=== PATIENT | female | born 1970 | race Hispanic/Latino ===

== ENCOUNTER 2017-09-03 10:56 | Emergency (ER) | payer OTHER ==
[2017-09-03 10:56] VITALS: BMI 29.3
--- NOTE | 2017-09-03 11:37 | ED PDOC ---
Arrival/HPI - General Chief Complaint: Shortness Of Breath Time Seen by Provider: 09/03/17 11:23 Historian: Patient - History of Present Illness Narrative History of Present Illness (Text): 09/03/17 11:29 A 47 year old female, whose past medical history includes seasonal allergies and anemia, presents to the emergency department complaining of shortness of breath and chest pain. Patient reports experiencing symptoms on and off since diagnosed with blood clots about 1 year ago. Recently, when patient is walking, she begins experiencing symptoms and is "huffing and puffing". Patient notes also that [place] and when it is windy she begins experiencing shortness of breath. Denies any fever, chills, or any other complaints. Also, patient mentions having blood work done every month. No PMD Past Medical History - Provider Review Nursing Documentation Reviewed: Yes - Infectious Disease Hx of Infectious Diseases: None - Reproductive Menopause: No - Cardiac Hx Cardiac Disorders: No - Pulmonary Hx Respiratory Disorders: No Hx Pulmonary Embolism: Yes Other/Comment: DVT - Neurological Hx Neurological Disorder: No - HEENT Hx HEENT Disorder: No - Renal Hx Renal Disorder: No - Endocrine/Metabolic Hx Endocrine Disorders: No - Hematological/Oncological Hx Blood Disorders: Yes Hx Anemia: Yes - Integumentary Hx Dermatological Disorder: No - Musculoskeletal/Rheumatological Hx Musculoskeletal Disorders: No Hx Falls: No - Gastrointestinal Hx Gastrointestinal Disorders: No - Genitourinary/Gynecological Hx Genitourinary Disorders: No - Psychiatric Hx Psychophysiologic Disorder: No Hx Substance Use: No - Surgical History Hx Cholecystectomy: Yes (2006) Family/Social History - Physician Review Nursing Documentation Reviewed: Yes Family/Social History: No Known Family HX Smoking Status: Never Smoked Hx Alcohol Use: No Hx Substance Use: No Allergies/Home Meds Allergies/Adverse Reactions: Allergies No Known Allergies Allergy (Verified 09/22/16 08:21) Home Medications: Home Meds Medication Instructions Recorded Confirmed Warfarin [Coumadin] 2.5 mg PO 09/03/17 Warfarin [Coumadin] 5 mg PO 09/03/17 amLODIPine [Norvasc] 5 mg PO DAILY 09/03/17 09/03/17 Review of Systems - Physician Review All systems were reviewed & negative as marked: Yes - Review of Systems Constitutional: absent: Fevers, Night Sweats Respiratory: SOB Cardiovascular: Chest Pain Physical Exam Vital Signs Reviewed: Yes Vital Signs Temp Pulse Resp BP Pulse Ox 09/03/17 11:58 91 H 09/03/17 11:22 97.5 F L 94 H 17 126/77 99 09/03/17 11:04 99.1 F 88 20 155/84 H 95 Temperature: Afebrile Blood Pressure: Hypertensive Pulse: Regular Respiratory Rate: Normal Appearance: Positive for: Well-Appearing, Other (patient appears to be anxious) Pain Distress: None Mental Status: Positive for: Alert and Oriented X 3 - Systems Exam Head: Present: Atraumatic, Normocephalic Pupils: Present: PERRL Extroacular Muscles: Present: EOMI Conjunctiva: Present: Normal Mouth: Present: Moist Mucous Membranes Neck: Present: Normal Range of Motion Respiratory/Chest: Present: Clear to Auscultation, Good Air Exchange. No: Respiratory Distress, Accessory Muscle Use Cardiovascular: Present: Regular Rate and Rhythm, Normal S1, S2. No: Murmurs Abdomen: Present: Normal Bowel Sounds. No: Tenderness, Distention, Peritoneal Signs Back: Present: Normal Inspection Upper Extremity: Present: Normal Inspection. No: Cyanosis, Edema Lower Extremity: Present: Normal Inspection. No: Edema Neurological: Present: GCS=15, CN II-XII Intact, Speech Normal Skin: Present: Warm, Dry, Normal Color. No: Rashes Psychiatric: Present: Alert, Oriented x 3, Normal Insight, Normal Concentration , Anxious Medical Decision Making ED Course and Treatment: 09/03/17 11:32 Impression: 47 year old female with shortness of breath and chest pain. Physical exam is normal. Plan: -- EKG -- Chest X-ray -- Angio Chest CT -- Labs -- Urinalysis -- Reassess and disposition Prior Visits: Notes and results from previous visits were reviewed. Patient was last seen in the emergency department on 09/22/2016 for "iron being low". Patient was admitted. Progress Notes: EKG: Ordered, reviewed, and independently interpreted the EKG. Rate : 104 BPM Rhythm : Sinus tachycardia with premature atrial complexes. Interpretation : No ST-segment elevations or depressions, no T-wave inversions, normal intervals. Comparison : No previous EKG for comparison. 09/03/2017 13:12 Chest X-ray IMPRESSION: No active disease. Dictator: Yefri Cramer MD 09/03/2017 13:[address] IMPRESSION: No active disease. Dictator: Yefri Cramer MD - Lab Interpretations Lab Results: 09/03/17 11:50 09/03/17 11:50 Lab Results 09/03/17 12:50: Urine Color Yellow, Urine Appearance Clear, Urine pH 6.0, Ur Specific [place] 1.020, Urine Protein Trace H, Urine Glucose (UA) Negative, Urine Ketones Negative, Urine Blood Negative, Urine Nitrate Negative, Urine Bilirubin Negative, Urine Urobilinogen 0.2, Ur Leukocyte Esterase Negative, Urine RBC 0 - 2, Urine WBC Negative, Ur Epithelial Cells 1 - 3, Urine Bacteria Neg, Urine HCG, Qual Negative 09/03/17 11:50: Sodium 140, Potassium 4.2, Chloride 107, Carbon Dioxide 21, Anion Gap 15, BUN 7, Creatinine 0.6 L, Est GFR ( Amer) > 60, Est GFR (Non -Af Amer) > 60, Random Glucose 124 H, Calcium 9.7, Total Bilirubin 0.4, AST 19, ALT 35, Alkaline Phosphatase 70, Lactate Dehydrogenase 506, Total Creatine Kinase 100, Troponin I < 0.01 D, Total Protein 6.9, Albumin 3.8, Globulin 3.1, Albumin/Globulin Ratio 1.2 09/03/17 11:50: PT 23.6 H, INR 2.02 H, D-Dimer, Quantitative 347 H 09/03/17 11:50: WBC 6.1, RBC 3.78, Hgb 10.8 L, Hct 33.2 L, MCV 87.8, MCH 28.6, MCHC 32.5, RDW 15.2 H, Plt Count 369, MPV 8.8, Gran % 71.9 H, Lymph % (Auto) 20.0 L, Loving % (Auto) 6.6 H, Eos % (Auto) 1.3 L, Baso % (Auto) 0.2, Gran # 4.39 , Lymph # (Auto) 1.2, Loving # (Auto) 0.4, Eos # (Auto) 0.1, Baso # (Auto) 0.01 I have reviewed the lab results: Yes - RAD Interpretation Radiology Orders: 09/03/17 11:28 CHEST PORTABLE [RAD] Stat 09/03/17 13:53 ANGIO CHEST PE PROTOCOL [CT] Stat - PA / WELLNESS ASSISTANT / Resident Statement MD/DO has reviewed & agrees with the documentation as recorded. - Scribe Statement The provider has reviewed the documentation as recorded by the Babita Fernandez Provider Babita Attestation: All medical record entries made by the Babita were at my direction and personally dictated by me. I have reviewed the chart and agree that the record accurately reflects my personal performance of the history, physical exam, medical decision making, and the department course for this patient. I have also personally directed, reviewed, and agree with the discharge instructions and disposition. Disposition/Present on Arrival - Present on Arrival Any Indicators Present on Arrival: No History of DVT/PE: Yes History of Uncontrolled Diabetes: No Urinary Catheter: No History of Decub. Ulcer: No History Surgical Site Infection Following: None - Disposition Have Diagnosis and Disposition been Completed?: Yes Diagnosis: Dyspnea Disposition: HOME/ ROUTINE Disposition Time: 15:43 Patient Plan: Discharge Patient Problems: Current Active Problems Problem Status Onset Dyspnea Acute Condition: GOOD Discharge Instructions (ExitCare): Dyspnea (ED) Additional Instructions: Milady- all your test results are good. it is not clear to me why you feel short of breath. see your doctor tomorrow. return to us if problems. Murray- Dr. Bruce Meadows Forms: Errund (Ivorian)
[2017-09-03 12:26] LABS: ALB/GLOB RATIO 1.2 (1.1-1.8); ALBUMIN 3.8 g/dL (3.0-4.8); ALT/SGPT 35 U/L (7-56); AST/SGOT 19 U/L (14-36); BLOOD UREA NITROGEN 7 mg/dL (7-21); CALCIUM 9.7 mg/dL (8.4-10.5); GFR AFRICAN-AMERICAN > 60; GFR NON-AFRICAN AMERICAN > 60
[2017-09-03 12:38] LABS: TROPONIN I < 0.01 ng/mL
[2017-09-03 12:50] LABS: INR 2.02 (0.93-1.08); PROTHROMBIN TIME 23.6 SECONDS (9.4-12.5)
[2017-09-03 12:52] LABS: BASO # 0.01 K/mm3 (0.0-2.0); BASO % 0.2 % (0.0-3.0); EOS # 0.1 (0.0-0.7); EOS % 1.3 % (1.5-5.0); GRAN # 4.39 (1.4-6.5); GRAN % 71.9 % (50.0-68.0); HEMOGLOBIN 10.8 g/dL (12.0-16.0); LYMPH # 1.2 (1.2-3.4); MEAN CELL VOLUME 87.8 fl (80.0-105.0); MEAN CORPUSCULAR HEMOGLOBIN 28.6 pg (25.0-35.0); MEAN CORPUSCULAR HGB CONC 32.5 g/dl (31.0-37.0); MEAN PLATELET VOLUME 8.8 fl (7.0-11.0); MONO # 0.4 (0.1-0.6); MONO % 6.6 % (1.0-6.0); RBC 3.78 10^6/uL (3.5-6.1); RED CELL DISTRIBUTION WIDTH 15.2 % (11.5-14.5); WHITE BLOOD COUNT 6.1 10^3/ul (4.5-11.0)
--- NOTE | 2017-09-03 13:13 | RAD ---
HISTORY: Chest Tightness COMPARISON: 09/22/2016 FINDINGS: LUNGS: No active pulmonary disease. PLEURA: No significant pleural effusion identified, no pneumothorax apparent. CARDIOVASCULAR: Normal. OSSEOUS STRUCTURES: No significant abnormalities. VISUALIZED UPPER ABDOMEN: Normal. OTHER FINDINGS: None. IMPRESSION: No active disease.
[2017-09-03 13:16] LABS: URINE BILIRUBIN NEGATIVE (NEGATIVE); URINE BLOOD NEGATIVE (NEGATIVE); URINE GLUCOSE (UA) NEGATIVE (NEGATIVE); URINE LEUKOCYTE ESTERASE NEGATIVE Leu/uL (NEGATIVE); URINE NITRATE NEGATIVE (NEGATIVE); URINE PROTEIN TRACE mg/dL (<30 mg/dL); URINE UROBILINOGEN 0.2 E.U./dL (<1 E.U./dL)
[2017-09-03 13:17] LABS: URINE APPEARANCE CLEAR (CLEAR); URINE COLOR YELLOW (YELLOW)
[2017-09-03 13:19] LABS: HCG,QUALITATIVE URINE NEGATIVE (NEGATIVE)
[2017-09-03 13:21] LABS: URINE RBC 0 - 2 /hpf (0-2); URINE WBC NEGATIVE /hpf (0-6)
[2017-09-03 13:22] LABS: URINE BACTERIA NEG (NEG)
[2017-09-03] MEDS ORDERED: Iodixanol 320 MG/ML 100 ML BOTTLE IV ONE (14:27)
--- NOTE | 2017-09-03 15:21 | CT ---
PROCEDURE: CT Chest with contrast (Pulmonary Angiogram) HISTORY: dyspnea, tachycardia, positive dimer, PE 1 yr ago COMPARISON: CT 09/22/2016 TECHNIQUE: Axial computed tomography images were obtained of the chest in the pulmonary arterial phase of enhancement. Coronal and sagittal reformatted images were created and reviewed. This CT exam was performed using one or more of the following dose reduction techniques: Automated exposure control, adjustment of the mA and/or kV according to patient size, and/or use of iterative reconstruction technique. Intravenous contrast dose: 100 cc of Visipaque Radiation dose: Total exam DLP = 265 mGy-cm. FINDINGS: PULMONARY ARTERIES: Unremarkable. No pulmonary embolism. There is a small linear filling defect in the right lower lobe pulmonary artery that is most likely the sequela of previous pulmonary emboli which were documented 1 year ago. There are no emboli on the current study AORTA: No acute findings. No thoracic aortic aneurysm. LUNGS: Unremarkable. No nodule, mass or pulmonary consolidation. PLEURAL SPACES: Unremarkable. No effusion or pneuomothorax. HEART: Unremarkable. No cardiomegaly. No significant pericardial effusion. LYMPH NODES: No lymphadenopathy. BONES, CHEST WALL: Unremarkable. No fracture or destructive lesion OTHER FINDINGS: Unremarkable. IMPRESSION: Unremarkable CT pulmonary angiogram. No pulmonary embolus.
[2017-09-03 16:47] VITALS: BP 121/64; PULSE 79; RESP 20; TEMP 98; O2SAT 97
--- NOTE | 2017-09-04 14:44 | CARD ---
APPROVED REPORT EKG Measurement Heart [id number] <Conclusion> Sinus tachycardia with premature atrial complexes Nonspecific ST abnormality Abnormal ECG
== END 2017-09-03 16:51 | disposition home or self-care (01) ==
LOC: ED 10:56
DX: R06.00 Dyspnea, unspecified (principal)
CPT/HCPCS: 71045; 71275; 80053; 81001; 82550; 83615; 84484; 84703; 85025; 85378; 85610; 93005; 99285; Q9967

== ENCOUNTER 2018-07-29 16:37 | Inpatient (IN) | payer OTHER, SELFPAY ==
--- NOTE | 2018-07-29 17:03 | ED PDOC ---
Arrival/HPI - General Chief Complaint: Shortness Of Breath Time Seen by Provider: 07/29/18 16:52 - History of Present Illness Narrative History of Present Illness (Text): 07/29/18 16:59 47 yo female, hx of dvt/pe not on anticoag, present wtih cp and sob similar to previous pe episode. of note , previous pos stress. no fevers, or othter comapltins. Past Medical History - Infectious Disease Hx of Infectious Diseases: None - Cardiac Hx Hypertension: Yes - Pulmonary Hx Pulmonary Embolism: Yes Other/Comment: DVT - Neurological Hx Neurological Disorder: No - HEENT Hx HEENT Disorder: No - Renal Hx Renal Disorder: No - Endocrine/Metabolic Hx Endocrine Disorders: No - Hematological/Oncological Hx Blood Disorders: Yes Hx Anemia: Yes - Integumentary Hx Dermatological Disorder: No - Musculoskeletal/Rheumatological Hx Musculoskeletal Disorders: No Hx Falls: No - Gastrointestinal Hx Gastrointestinal Disorders: No - Genitourinary/Gynecological Hx Genitourinary Disorders: No - Psychiatric Hx Psychophysiologic Disorder: No Hx Substance Use: No - Surgical History Hx Cholecystectomy: Yes (2006) Family/Social History Family/Social History: Unknown Family HX Smoking Status: Never Smoked Hx Alcohol Use: No Hx Substance Use: No Allergies/Home Meds Allergies/Adverse Reactions: Allergies No Known Allergies Allergy (Verified 09/22/16 08:21) Home Medications: Home Meds Medication Instructions Recorded Confirmed amLODIPine [Norvasc] 10 mg PO DAILY 09/03/17 08/01/18 Review of Systems - Review of Systems Constitutional: Normal Eyes: Normal ENT: Normal Respiratory: SOB Cardiovascular: Chest Pain Gastrointestinal: Normal Genitourinary Female: Normal Musculoskeletal: Normal Skin: Normal Neurological: Normal Endocrine: Normal Hemo/Lymphatic: Normal Psychiatric: Normal Physical Exam Vital Signs Temp Pulse Resp BP Pulse Ox 07/29/18 16:48 97.9 F 126 H 18 122/50 L 85 L Temperature: Afebrile Blood Pressure: Normal Pulse: Tachycardic Respiratory Rate: Tachypneic Appearance: Positive for: Well-Appearing, Non-Toxic, Comfortable Pain Distress: None Mental Status: Positive for: Alert and Oriented X 3 - Systems Exam Head: Present: Atraumatic, Normocephalic Pupils: Present: PERRL Extroacular Muscles: Present: EOMI Conjunctiva: Present: Normal Mouth: Present: Moist Mucous Membranes Neck: Present: Normal Range of Motion Respiratory/Chest: Present: Clear to Auscultation, Good Air Exchange. No: Respiratory Distress, Accessory Muscle Use Cardiovascular: Present: Regular Rate and Rhythm, Normal S1, S2. No: Murmurs Abdomen: No: Tenderness, Distention, Peritoneal Signs Back: Present: Normal Inspection Upper Extremity: Present: Normal Inspection. No: Cyanosis, Edema Lower Extremity: Present: Normal Inspection. No: Edema Neurological: Present: GCS=15, CN II-XII Intact, Speech Normal Skin: Present: Warm, Dry, Normal Color. No: Rashes Psychiatric: Present: Alert, Oriented x 3, Normal Insight, Normal Concentration Medical Decision Making ED Course and Treatment: 07/29/18 17:05 ekg sinus tach 111. non specific st t wave changes 08/04/18 07:36 suspect pe heparin dosed. echo with dilated rv bedside accepted dr king to icu - RAD Interpretation Radiology Orders: 07/29/18 16:58 CHEST PORTABLE [RAD] Stat Disposition/Present on Arrival - Present on Arrival Any Indicators Present on Arrival: No History of DVT/PE: Yes History of Uncontrolled Diabetes: No Urinary Catheter: No History of Decub. Ulcer: No History Surgical Site Infection Following: None - Disposition Have Diagnosis and Disposition been Completed?: Yes Diagnosis: Pulmonary embolism Disposition: HOSPITALIZED Disposition Time: 07:00 Condition: CRITICAL
[2018-07-29 17:33] LABS: BASO # 0.03 K/mm3 (0.0-2.0); BASO % 0.2 % (0.0-3.0); EOS # 0.1 (0.0-0.7); EOS % 0.8 % (1.5-5.0); GRAN # 13.08 (1.4-6.5); GRAN % 85.1 % (50.0-68.0); HEMOGLOBIN 12.7 g/dL (12.0-16.0); LYMPH # 1.3 (1.2-3.4); LYMPH % 8.6 % (22.0-35.0); MEAN CELL VOLUME 90.5 fl (80.0-105.0); MEAN CORPUSCULAR HEMOGLOBIN 30.1 pg (25.0-35.0); MEAN CORPUSCULAR HGB CONC 33.2 g/dl (31.0-37.0); MEAN PLATELET VOLUME 9.2 fl (7.0-11.0); MONO # 0.8 (0.1-0.6); MONO % 5.3 % (1.0-6.0); RBC 4.22 10^6/uL (3.5-6.1); RED CELL DISTRIBUTION WIDTH 16.2 % (11.5-14.5); WHITE BLOOD COUNT 15.4 10^3/uL (4.5-11.0)
[2018-07-29 17:44] LABS: B-TYPE NATRIURETIC PEPTIDE 427 pg/mL (0-450); TROPONIN I < 0.01 ng/mL
[2018-07-29 17:45] LABS: INR 1.27; PROTHROMBIN TIME 14.6 SECONDS (9.4-12.5)
[2018-07-29 17:49] LABS: D DIMER > 5250 ng/mlDDU (0-243)
[2018-07-29] MEDS ORDERED: Heparin25000 units/250ml 1/2NS 25,000 UNITS/250 ML BAG IV PRN (17:51)
[2018-07-29] MEDS ORDERED: Iodixanol 320 MG/ML 100 ML BOTTLE IV ONE (17:59)
[2018-07-29 18:01] VITALS: BMI 23.9
[2018-07-29] MEDS ORDERED: Heparin25000 units/250ml 1/2NS 25,000 UNITS/250 ML BAG IV SCH (18:15)
[2018-07-29 18:26] LABS: ALB/GLOB RATIO 1.2 (1.1-1.8); ALBUMIN 4.3 g/dL (3.0-4.8); ALT/SGPT 22 U/L (7-56); AST/SGOT 34 U/L (14-36); BLOOD UREA NITROGEN 15 mg/dL (7-21); CALCIUM 9.8 mg/dL (8.4-10.5); GFR NON-AFRICAN AMERICAN > 60
[2018-07-29 18:55] LABS: URINE BILIRUBIN NEGATIVE (NEGATIVE); URINE BLOOD MODERATE (NEGATIVE); URINE GLUCOSE (UA) NEGATIVE (NEGATIVE); URINE LEUKOCYTE ESTERASE NEGATIVE Leu/uL (NEGATIVE); URINE PROTEIN TRACE mg/dL (<30 mg/dL)
[2018-07-29 19:02] LABS: URINE APPEARANCE SL CLOUDY (CLEAR); URINE COLOR YELLOW (YELLOW)
[2018-07-29 19:07] LABS: URINE BACTERIA MOD /hpf; URINE EPITHELIAL CELLS MANY /hpf (0-5); URINE WBC 0 - 2 /hpf (0-6)
--- NOTE | 2018-07-29 21:05 | CP.PCM.HP ---
<Gary Jackson - Last Filed: 07/29/18 21:06> History of Present Illness - History of Present Illness History of Present Illness: Gary Jackson, PGY-1, Internal Medicine History and Physical for Dr. Luna 47 year old female with past medical history of anemia, pulmonary embolism and bilateral DVT in 2017, vitamin D deficiency, and hypertension presents with shortness of breath and nonproductive cough for 2 weeks. Patient initially reported shortness of breath with moderate exertion such as ambulation on stairs but over this past week, shortness of breath has been worsening and is now present with minimal ambulation. Today, patient was walking to local grocery store, when patient had severe shortness of breath and she came to the emergency department. Patient also reports history of unspecified weight loss over unspecified number of time. Patient approximates 15-20 lb weight loss but does not have a weight scale at home to confirm. Patient has a history of pulmonary embolism and bilateral DVT in 2016. At that time, PE was found to be unprovoked. Patient was started on eliquis for 1 month and later switched to warfarin. Patient was on Warfarin until 08/2017. Patient has been on low dose aspirin since August. At bedside, patient was not in respiratory distress and was sitting up comfortably in bed. Patient denies chest pain, left arm pain, left jaw pain, diaphoresis, nausea, vomiting, lower extremity swelling, lower extremity pain, fever, wheezing, productive cough. 12-point ROS was unremarkable except for what was mentioned above. PMH: as mentioned above PSH: laparoscopic cholecystectomy FMHx: asthma, leukemia SHx: social alcohol use. Denies tobacco and recreational drug use Allergies: NKDA PCP: Dr. Stevenson Present on Admission - Present on Admission Any Indicators Present on Admission: Yes History of DVT/PE: Yes Review of Systems - Constitutional Constitutional: Weight Loss. absent: Chills, Excessive Sweating, Fever, Headache - EENT Eyes: absent: Blurred Vision Ears: absent: Decreased Hearing - Cardiovascular Cardiovascular: Dyspnea, Palpitations. absent: Chest Pain, Chest Pain at Rest, Diaphoresis, Edema, Leg Edema, Orthopnea - Respiratory Respiratory: Cough (nonproductive). absent: Hemoptysis, Wheezing, Snoring - Gastrointestinal Gastrointestinal: absent: Abdominal Pain, Constipation, Diarrhea, Nausea, Vomiting - Genitourinary Genitourinary: absent: Dysuria, Hematuria - Musculoskeletal Musculoskeletal: absent: Abnormal Gait, Arthralgias, Back Pain - Neurological Neurological: absent: Dizziness, Numbness, Vertigo Past Patient History - Infectious Disease Hx of Infectious Diseases: None - Past Social History Smoking Status: Never Smoked Alcohol: Social Drugs: Denies - CARDIAC Hx Hypertension: Yes - PULMONARY Hx Pulmonary Embolism: Yes Other/Comment: DVT - NEUROLOGICAL Hx Neurological Disorder: No - HEENT Hx HEENT Problems: No - RENAL Hx Chronic Kidney Disease: No - ENDOCRINE/METABOLIC Hx Endocrine Disorders: No - HEMATOLOGICAL/ONCOLOGICAL Hx Blood Disorders: Yes Hx Anemia: Yes - INTEGUMENTARY Hx Dermatological Problems: No - MUSCULOSKELETAL/RHEUMATOLOGICAL Hx Musculoskeletal Disorders: No Hx Falls: No - GASTROINTESTINAL Hx Gastrointestinal Disorders: No - GENITOURINARY/GYNECOLOGICAL Hx Genitourinary Disorders: No - PSYCHIATRIC Hx Psychophysiologic Disorder: No Hx Substance Use: No - SURGICAL HISTORY Hx Cholecystectomy: Yes (2006) Meds Allergies/Adverse Reactions: Allergies Allergy/AdvReac Type Severity Reaction Status Date / Time No Known Allergies Allergy Verified 09/22/16 08:21 Physical Exam - Constitutional Appears: Well, Non-toxic, No Acute Distress - Head Exam Head Exam: ATRAUMATIC, NORMAL INSPECTION, NORMOCEPHALIC - Eye Exam Eye Exam: EOMI Pupil Exam: NORMAL ACCOMODATION - Neck Exam Neck exam: Positive for: Normal Inspection Additional comments: No JVD - Respiratory Exam Respiratory Exam: Clear to Auscultation Bilateral, NORMAL BREATHING PATTERN. absent: Rhonchi, Wheezes, Respiratory Distress, Stridor - Cardiovascular Exam Cardiovascular Exam: Tachycardia, REGULAR RHYTHM. absent: JVD - GI/Abdominal Exam GI & Abdominal Exam: Normal Bowel Sounds, Soft - Extremities Exam Extremities exam: Positive for: full ROM, normal inspection. Negative for: pedal edema, tenderness Additional comments: negative Asa's sign - Neurological Exam Neurological exam: Alert, CN II-XII Intact, Oriented x3 - Psychiatric Exam Psychiatric exam: Normal Affect, Normal Mood Results - Vital Signs Recent Vital Signs: Last Vital Signs Temp 98.1 F 07/29/18 20:17 Pulse 110 H 07/29/18 20:17 Resp 20 07/29/18 20:17 BP 118/60 07/29/18 20:17 Pulse Ox 97 07/29/18 20:17 - Labs Result Diagrams: 07/29/18 17:00 07/29/18 17:00 Labs: Laboratory Results - last 24 hr 07/29/18 07/29/18 07/29/18 17:00 17:00 17:00 WBC 15.4 H D RBC 4.22 Hgb 12.7 Hct 38.2 MCV 90.5 MCH 30.1 MCHC 33.2 RDW 16.2 H Plt Count 389 MPV 9.2 Gran % 85.1 H Lymph % (Auto) 8.6 L Elbert % (Auto) 5.3 Eos % (Auto) 0.8 L Baso % (Auto) 0.2 Gran # 13.08 H Lymph # (Auto) 1.3 Elbert # (Auto) 0.8 H Eos # (Auto) 0.1 Baso # (Auto) 0.03 PT 14.6 H INR 1.27 APTT 29.0 D-Dimer, Quantitative > 5250 H Sodium 140 Potassium 3.9 Chloride 106 Carbon Dioxide 23 Anion Gap 14 BUN 15 Creatinine 0.7 Est GFR ( Amer) > 60 Est GFR (Non-Af Amer) > 60 Random Glucose 147 H Calcium 9.8 Magnesium 2.1 Total Bilirubin 0.5 AST 34 ALT 22 Alkaline Phosphatase 105 Lactate Dehydrogenase 560 Total Creatine Kinase 29 L Troponin I < 0.01 NT-Pro-B Natriuret Pep 427 Total Protein 7.8 Albumin 4.3 Globulin 3.5 Albumin/Globulin Ratio 1.2 Urine Color Urine Appearance Urine pH Ur Specific Rosser Urine Protein Urine Glucose (UA) Urine Ketones Urine Blood Urine Nitrate Urine Bilirubin Urine Urobilinogen Ur Leukocyte Esterase Urine RBC Urine WBC Ur Epithelial Cells Urine Bacteria 07/29/18 18:34 WBC RBC Hgb Hct MCV MCH MCHC RDW Plt Count MPV Gran % Lymph % (Auto) Elbert % (Auto) Eos % (Auto) Baso % (Auto) Gran # Lymph # (Auto) Elbert # (Auto) Eos # (Auto) Baso # (Auto) PT INR APTT D-Dimer, Quantitative Sodium Potassium Chloride Carbon Dioxide Anion Gap BUN Creatinine Est GFR ( Amer) Est GFR (Non-Af Amer) Random Glucose Calcium Magnesium Total Bilirubin AST ALT Alkaline Phosphatase Lactate Dehydrogenase Total Creatine Kinase Troponin I NT-Pro-B Natriuret Pep Total Protein Albumin Globulin Albumin/Globulin Ratio Urine Color Yellow Urine Appearance Sl cloudy Urine pH 6.0 Ur Specific Rosser >= 1.030 Urine Protein Trace H Urine Glucose (UA) Negative Urine Ketones Negative Urine Blood Moderate H Urine Nitrate Negative Urine Bilirubin Negative Urine Urobilinogen 1.0 H Ur Leukocyte Esterase Negative Urine RBC 1 - 3 H Urine WBC 0 - 2 Ur Epithelial Cells Many H Urine Bacteria Mod Assessment & Plan - Assessment and Plan (Free Text) Assessment: 47 year old female with past medical history of anemia, pulmonary embolism and bilateral DVT in 2017, vitamin D deficiency, and hypertension presents with shortness of breath and nonproductive cough for 2 weeks. Plan: Shortness of breath 2/2 to Pulmonary Embolism -Elevated D-Dimer over 5250 and pending CTA results -Leukocytosis at 15.4 -EKG: sinus tachycardia with HR of 111. -Patient is hemodynamically stable with blood pressure of 118/60 and oxygen saturation of 97% of 2L of nasal cannula. No JVD appreciated. Doubt massive pulmonary embolism -Well's criteria score for PE: 9. As a result, PE is likely -Heparin drip at rate of 18U/kg/hr started -Heme/Onc, Dr. Doan, consulted for recommendations. History of Vitamin D Deficiency -Continue 1000 U of cholecalciferol daily History of Anemia -Hgb: 12.7 -Continue to monitor History of Hypertension -Blood pressure is 118/60 -Hold norvas at this time. GI prophylaxis: pepcid 20 mg daily DVT prophylaxis: heparin drip at 18U/kg/hr Patient plan was discussed with Dr. Luna. - Date & Time Date: 07/29/18 Time: 21:20 <Martin Luna - Last Filed: 07/30/18 06:07> Results - Vital Signs Recent Vital Signs: Last Vital Signs Temp 98.1 F 07/29/18 20:17 Pulse 94 H 07/30/18 00:59 Resp 18 07/29/18 21:53 BP 118/60 07/29/18 20:17 Pulse Ox 97 07/29/18 20:17 - Labs Result Diagrams: 07/29/18 17:00 07/29/18 17:00 Labs: Laboratory Results - last 24 hr 07/29/18 07/29/18 07/29/18 17:00 17:00 17:00 WBC 15.4 H D RBC 4.22 Hgb 12.7 Hct 38.2 MCV 90.5 MCH 30.1 MCHC 33.2 RDW 16.2 H Plt Count 389 MPV 9.2 Gran % 85.1 H Lymph % (Auto) 8.6 L Elbert % (Auto) 5.3 Eos % (Auto) 0.8 L Baso % (Auto) 0.2 Gran # 13.08 H Lymph # (Auto) 1.3 Elbert # (Auto) 0.8 H Eos # (Auto) 0.1 Baso # (Auto) 0.03 PT 14.6 H INR 1.27 APTT 29.0 D-Dimer, Quantitative > 5250 H Sodium 140 Potassium 3.9 Chloride 106 Carbon Dioxide 23 Anion Gap 14 BUN 15 Creatinine 0.7 Est GFR ( Amer) > 60 Est GFR (Non-Af Amer) > 60 Random Glucose 147 H Calcium 9.8 Magnesium 2.1 Total Bilirubin 0.5 AST 34 ALT 22 Alkaline Phosphatase 105 Lactate Dehydrogenase 560 Total Creatine Kinase 29 L Troponin I < 0.01 NT-Pro-B Natriuret Pep 427 Total Protein 7.8 Albumin 4.3 Globulin 3.5 Albumin/Globulin Ratio 1.2 Urine Color Urine Appearance Urine pH Ur Specific Rosser Urine Protein Urine Glucose (UA) Urine Ketones Urine Blood Urine Nitrate Urine Bilirubin Urine Urobilinogen Ur Leukocyte Esterase Urine RBC Urine WBC Ur Epithelial Cells Urine Bacteria 07/29/18 07/30/18 18:34 00:40 WBC RBC Hgb Hct MCV MCH MCHC RDW Plt Count MPV Gran % Lymph % (Auto) Elbert % (Auto) Eos % (Auto) Baso % (Auto) Gran # Lymph # (Auto) Elbert # (Auto) Eos # (Auto) Baso # (Auto) PT 15.0 H INR 1.31 APTT 144.2 H* D-Dimer, Quantitative Sodium Potassium Chloride Carbon Dioxide Anion Gap BUN Creatinine Est GFR ( Amer) Est GFR (Non-Af Amer) Random Glucose Calcium Magnesium Total Bilirubin AST ALT Alkaline Phosphatase Lactate Dehydrogenase Total Creatine Kinase Troponin I NT-Pro-B Natriuret Pep Total Protein Albumin Globulin Albumin/Globulin Ratio Urine Color Yellow Urine Appearance Sl cloudy Urine pH 6.0 Ur Specific Rosser >= 1.030 Urine Protein Trace H Urine Glucose (UA) Negative Urine Ketones Negative Urine Blood Moderate H Urine Nitrate Negative Urine Bilirubin Negative Urine Urobilinogen 1.0 H Ur Leukocyte Esterase Negative Urine RBC 1 - 3 H Urine WBC 0 - 2 Ur Epithelial Cells Many H Urine Bacteria Mod Attending/Attestation - Attestation I have personally seen and examined this patient.: Yes I have fully participated in the care of the patient.: Yes I have reviewed all pertinent clinical information: Yes Notes (Text): 07/30/18 06:03 Patient was seen when she was in the ER. Medical record was reviewed. Agree with History,physical examination, assessment and plan with addition , substraction. 47 year old woman with CC: Dyhspnea. Chest pain. Sinus tachycardia. Leukocytosis-15.4 Granulocytosis-85.1 Elevated D-Dimer >5250 Elevated Protime-14.6 Hyperglycemia-147 Trop-<0.01. Urine-Cloudy,mod blood,rbc 1-3. PMH: PE DVT HTN HLD Seasonal allergies Weightloss. Anemia. Vit D defficiency. Myopia. Cholecystectomy. Family history of luekemia. Family history of asthma. Family history of stroke. Ocassional alcohol use. HOME MEDS: Lipitor Amlodipine
[2018-07-29] MEDS: Heparin25000 units/250ml 1/2NS 25,000 UNITS/250 ML BAG IV PRN (21:15)
[2018-07-30 01:21] LABS: INR 1.31
[2018-07-30 01:37] LABS: PARTIAL THROMBOPLASTIN TIME 144.2 Seconds (25.1-36.5)
[2018-07-30] MEDS ORDERED: Heparin25000 units/250ml 1/2NS 25,000 UNITS/250 ML BAG IV SCH (07:07)
--- NOTE | 2018-07-30 07:23 | CP.PCM.PN ---
<Amol Lim - Last Filed: 07/30/18 12:03> Subjective - Date & Time of Evaluation Date of Evaluation: 07/30/18 Time of Evaluation: 07:23 - Subjective Subjective: Ziggy Lim PGY2 - ICU Progress Note Patient is seen and examined this AM. No acute events reported overnight from admission. She continues to complain of mild shortness of breath with ambulation/movement as well as chest pressure. She denies chest pain, abdominal pain, hemoptysis, palpitations, orthopnea, hematuria. Objective - Vital Signs/Intake and Output Vital Signs (last 24 hours): Temp Pulse Resp BP Pulse Ox 98.1 F 94 H 18 118/60 97 07/29/18 20:17 07/30/18 00:59 07/29/18 21:53 07/29/18 20:17 07/29/18 20:17 - Medications Medications: Current Medications Cholecalciferol (Vitamin D) 1,000 intlu PO DAILY [facility] Famotidine (Pepcid) 20 mg IVP DAILY [facility] Heparin Sodium/Sodium Chloride (Heparin 69523 Units/250ml 1/2 Normal Saline) 25,000 units in 250 mls @ 10.688 mls/hr IV .[id number] PRN; Protocol PRN Reason: ADJUST RATE PER PROTOCOL - Labs Labs: 07/29/18 17:00 07/29/18 17:00 PT 15.0 SECONDS (9.4-12.5) H 07/30/18 00:40 INR 1.31 07/30/18 00:40 APTT 144.2 Seconds (25.1-36.5) H* 07/30/18 00:40 - Constitutional Appears: No Acute Distress - Head Exam Head Exam: ATRAUMATIC, NORMAL INSPECTION, NORMOCEPHALIC - Eye Exam Eye Exam: EOMI, PERRL - ENT Exam ENT Exam: Mucous Membranes Moist - Neck Exam Neck Exam: Full ROM - Respiratory Exam Respiratory Exam: Clear to Ausculation Bilateral, NORMAL BREATHING PATTERN - Cardiovascular Exam Cardiovascular Exam: Tachycardia, REGULAR RHYTHM, +S1, +S2 - GI/Abdominal Exam GI & Abdominal Exam: Soft, Normal Bowel Sounds. absent: Guarding, Rigid, Tenderness - Extremities Exam Extremities Exam: Full ROM, Normal Capillary Refill, Normal Inspection. absent: Calf Tenderness, Pedal Edema, Tenderness - Back Exam Back Exam: absent: CVA tenderness (L), CVA tenderness (R) - Neurological Exam Neurological Exam: Alert, Awake, CN II-XII Intact, Normal Gait, Oriented x3 Neuro motor strength exam: Left Upper Extremity: 5, Right Upper Extremity: 5, Left Lower Extremity: 5, Right Lower Extremity: 5 - Psychiatric Exam Psychiatric exam: Normal Mood - Skin Skin Exam: Dry, Intact, Warm Assessment and Plan - Assessment and Plan (Free Text) Assessment: 47 year old female with PMH of iron deficiency anemia, hx of pulmonary embolism and bilateral DVT in 2016 who was placed on anticoagulation with eliquis later switched to warfarin and stopped in 08/2017 according to the patient, vitamin D deficiency, and hypertension who was admitted for pulmonary embolism and placed on heparin gtt. Plan: Neuro AAOx3 Mental status intact Pulm On room air Maintain SaO2 >92% Cardio Hx of HTN Maintain MAP >65 Echo 09/2017: EF >55%, normal wall thickness GI Diet HHD Continue with pepcid Renal BUN/Cr stable Replete lytes, maintain euvolemia, continue to monitor Heme Pulmonary Embolism, sub-massive - Pt normotensive, BNP within normal range, troponins negative -Wells: 9, PERC: 2, [place] Revised: 8 -Hx of Chronic PE/Bilateral DVT (2016) -Questionable compliance with previous AC therapy -Previous workup showing slightly lower Factor V -Calls made to [facility] lupus labwork -CTA report pending final read -Heparin gtt continued -Monitor PT -Heme consulted, appreciate recs ID Leukocytosis -Likely stress related, patient afebrile, clinically well -UA with unclean catch, negative nitrate, leuk est -Repeat AM trending downward GI/DVT ppx - Pepcid - Heparin gtt Dispo: Patient is hemodynamically stable without elevated troponin, patient to be transferred to telemetry with continuation of heparin gtt Patient seen, case and plan discussed with attending, Dr. Mcgowan <Jackson Mcgowan - Last Filed: 07/30/18 18:21> Objective - Vital Signs/Intake and Output Vital Signs (last 24 hours): Temp Pulse Resp BP Pulse Ox 98.1 F 81 20 103/63 95 07/29/18 20:17 07/30/18 16:10 07/30/18 16:10 07/30/18 16:00 07/30/18 16:10 Intake and Output: 07/30/18 07/30/18 06:59 18:59 Intake Total 643 Balance 643 - Medications Medications: Current Medications Cholecalciferol (Vitamin D) 1,000 intlu PO DAILY [facility] Last Admin: 07/30/18 09:14 Dose: 1,000 intlu Famotidine (Pepcid) 20 mg PO DAILY [facility] Heparin Sodium/Sodium Chloride (Heparin 69217 Units/250ml 1/2 Normal Saline) 25,000 units in 250 mls @ 10.688 mls/hr IV .[id number] PRN; Protocol PRN Reason: ADJUST RATE PER PROTOCOL Last Titration: 07/30/18 00:40 Dose: 15 units/kg/hr, 8.906 mls/hr - Labs Labs: 07/30/18 08:54 07/30/18 08:54 PT 14.5 SECONDS (9.4-12.5) H 07/30/18 08:54 INR 1.26 07/30/18 08:54 APTT 69.7 Seconds (25.1-36.5) H 07/30/18 15:28 Addendum Addendum: 07/30/18 18:19 ICU Attending Addendum Patient seen and examined. Case reviewed on round with housestaff. Agree with resident note above with the following additions/exceptions: 47F with hx of DVT PE last year with questoinable compliance to anticoagulation admitted with BL segemntal PE likely recurrent PE should have lifelong anticoagulation on hep drip can bridge with coumadin would consider IVC filter if patient has issues with compliance no role for lytics at this point neg TNI normotensive no longer needs ICU level care ok to transfer with remote monitor Rest of care above Jackson Mcgowan MD Pulmonary Critical Care Attending
[2018-07-30 08:57] LABS: HEMOGLOBIN 11.6 g/dL (12.0-16.0); MEAN CELL VOLUME 89.7 fl (80.0-105.0); MEAN CORPUSCULAR HEMOGLOBIN 30.6 pg (25.0-35.0); MEAN CORPUSCULAR HGB CONC 34.1 g/dl (31.0-37.0); MEAN PLATELET VOLUME 8.9 fl (7.0-11.0); RBC 3.79 10^6/uL (3.5-6.1); WHITE BLOOD COUNT 11.1 10^3/uL (4.5-11.0)
--- NOTE | 2018-07-30 09:04 | RAD ---
Date of service: 07/29/2018 HISTORY: sob COMPARISON: 09/03/2017 FINDINGS: LUNGS: There is a new right lower lobe infiltrate and a small nodular density or infiltrate in the left upper lobe. Follow-up is recommended PLEURA: No significant pleural effusion identified, no pneumothorax apparent. CARDIOVASCULAR: No aortic atherosclerotic calcification present. Normal cardiac size. No pulmonary vascular congestion. OSSEOUS STRUCTURES: No significant abnormalities. VISUALIZED UPPER ABDOMEN: Normal. OTHER FINDINGS: None. IMPRESSION: There is a new right lower lobe infiltrate and a small nodular density or infiltrate in the left upper lobe. Follow-up is recommended
[2018-07-30 09:07] LABS: ALB/GLOB RATIO 1.1 (1.1-1.8); ALBUMIN 3.8 g/dL (3.0-4.8); ALT/SGPT 22 U/L (7-56); AST/SGOT 26 U/L (14-36); BLOOD UREA NITROGEN 20 mg/dL (7-21); CALCIUM 9.1 mg/dL (8.4-10.5); GFR NON-AFRICAN AMERICAN > 60
[2018-07-30 09:08] LABS: INR 1.26; PARTIAL THROMBOPLASTIN TIME 71.6 Seconds (25.1-36.5); PROTHROMBIN TIME 14.5 SECONDS (9.4-12.5)
[2018-07-30] MEDS: Cholecalciferol 1,000 INTLU TAB PO SCH (09:14)
--- NOTE | 2018-07-30 10:16 | CARD ---
APPROVED REPORT Date of service: 07/29/2018 EKG Measurement Heart [id number] <Conclusion> Sinus tachycardia Possible Left atrial enlargement Rightward axis Nonspecific ST abnormality Abnormal ECG
--- NOTE | 2018-07-30 11:26 | CT ---
Date of service: 07/29/2018 PROCEDURE: CT Chest with contrast (Pulmonary Angiogram) HISTORY: sob elevated dimer COMPARISON: None available. TECHNIQUE: Axial computed tomography images were obtained of the chest in the pulmonary arterial phase of enhancement. Coronal and sagittal reformatted images were created and reviewed. Intravenous contrast dose: 80 cc of Visipaque Radiation dose: Total exam DLP = 244.52 mGy-cm. This CT exam was performed using one or more of the following dose reduction techniques: Automated exposure control, adjustment of the mA and/or kV according to patient size, and/or use of iterative reconstruction technique. FINDINGS: PULMONARY ARTERIES: Bilateral pulmonary emboli are seen in the lower lobe pulmonary arteries and the left upper lobe. AORTA: No acute findings. No thoracic aortic aneurysm. No aortic atherosclerotic calcification or mural plaque present. LUNGS: Bilateral pulmonary infiltrates right middle lobe and left upper lobe. PLEURAL SPACES: Unremarkable. No effusion or pneumothorax. HEART: Unremarkable. No cardiomegaly. No significant pericardial effusion. LYMPH NODES: No lymphadenopathy. BONES, CHEST WALL: Unremarkable. No fracture or destructive lesion OTHER FINDINGS: The report concurs with the preliminary [facility] report IMPRESSION: Bilateral pulmonary emboli are seen in the lower lobe pulmonary arteries and the left upper lobe. Bilateral pulmonary infiltrates right middle lobe and left upper lobe.
--- NOTE | 2018-07-30 12:42 | CP.PCM.PN ---
<Jv Wilson - Last Filed: 07/30/18 13:39> Subjective - Date & Time of Evaluation Date of Evaluation: 07/30/18 Time of Evaluation: 07:00 - Subjective Subjective: Pt seen and examined in the ICU this morning. Pt denies SOB, chest pain, palpitations, or hemoptysis. Objective - Vital Signs/Intake and Output Vital Signs (last 24 hours): Temp Pulse Resp BP Pulse Ox 98.1 F 100 H 19 107/73 95 07/29/18 20:17 07/30/18 10:00 07/30/18 08:40 07/30/18 08:00 07/30/18 08:40 Intake and Output: 07/30/18 07/30/18 06:59 18:59 Intake Total 643 Balance 643 - Medications Medications: Current Medications Cholecalciferol (Vitamin D) 1,000 intlu PO DAILY [facility] Last Admin: 07/30/18 09:14 Dose: 1,000 intlu Famotidine (Pepcid) 20 mg IVP DAILY [facility] Last Admin: 07/30/18 09:13 Dose: 20 mg Heparin Sodium/Sodium Chloride (Heparin 94322 Units/250ml 1/2 Normal Saline) 25,000 units in 250 mls @ 10.688 mls/hr IV .[id number] PRN; Protocol PRN Reason: ADJUST RATE PER PROTOCOL Last Titration: 07/30/18 00:40 Dose: 15 units/kg/hr, 8.906 mls/hr Warfarin Sodium (Coumadin) 10 mg PO 1800 ONE; Protocol Stop: 07/30/18 18:01 - Labs Labs: 07/30/18 08:54 07/30/18 08:54 PT 14.5 SECONDS (9.4-12.5) H 07/30/18 08:54 INR 1.26 07/30/18 08:54 APTT 71.6 Seconds (25.1-36.5) H 07/30/18 08:54 - Constitutional Appears: No Acute Distress - Head Exam Head Exam: ATRAUMATIC, NORMOCEPHALIC - Eye Exam Eye Exam: EOMI, Normal appearance - ENT Exam ENT Exam: Mucous Membranes Moist - Neck Exam Neck Exam: Full ROM - Respiratory Exam Respiratory Exam: Clear to Ausculation Bilateral, NORMAL BREATHING PATTERN. a bsent: Wheezes, Respiratory Distress - Cardiovascular Exam Cardiovascular Exam: RRR, +S1, +S2. absent: Diastolic murmur, Murmur - GI/Abdominal Exam GI & Abdominal Exam: Soft, Normal Bowel Sounds. absent: Rebound - Extremities Exam Extremities Exam: Full ROM - Neurological Exam Neurological Exam: Alert, Awake, Oriented x3 - Psychiatric Exam Psychiatric exam: Normal Affect, Normal Mood - Skin Skin Exam: Dry, Intact, Warm Assessment and Plan - Assessment and Plan (Free Text) Assessment: Pt is a 47yo female with a PMH of anemia, PE and BL DVT, vitamine D deficiency and HTN who presents with SOB 2/2 pulmonary embolism. Plan: Pulmonary Embolism - Hx of Chronic PE/Bilateral DVT (2016) - Previous workup showing slightly lower Factor V - Calls made to quest for lupus labwork - CTA: bl pulm emboli in lower lobe pulmonary arteries and left upper lobe - Heparin gtt continued - Monitor coagulation - repeat ECHO - restart pt on Warfarin - Follow up LE doppler - Heme consulted Hx of HTN - normotensive at this time, continue to monitor Ppx - Pepcid - Heparin gtt Pt seen, examined, assessment and plan discussed with Dr Aileen Wilson PGY1, Internal Medicine Resident <Aileen Cornelius R - Last Filed: 08/01/18 18:28> Objective - Vital Signs/Intake and Output Vital Signs (last 24 hours): Temp Pulse Resp BP Pulse Ox 99.2 F 75 20 102/74 95 08/01/18 12:00 08/01/18 12:00 08/01/18 12:00 08/01/18 12:00 08/01/18 06:00 Intake and Output: 08/01/18 08/01/18 06:59 18:59 Intake Total 358 900 Output Total 1 4 Balance 357 896 - Labs Labs: 08/01/18 06:45 08/01/18 06:45 PT 31.7 SECONDS (9.4-12.5) H 08/01/18 06:45 INR 2.70 08/01/18 06:45 APTT 78.2 Seconds (25.1-36.5) H 08/01/18 06:45 Attending/Attestation - Attestation I have personally seen and examined this patient.: Yes I have fully participated in the care of the patient.: Yes I have reviewed all pertinent clinical information, including history, physical exam and plan: Yes Notes (Text): Patient seen and examined by me with resident at 9:10AM on 07/30/18. Case including HPI, physical exam, and assessment and plan discussed with resident. Agree with above with following additions/corrections. Patient is a 47-year-old female with past medical history significant for anemia, pulmonary embolism and bilateral DVT in 2017, vitamin D deficiency, and hypertension that presented to the emergency room with shortness of breath and nonproductive cough for 2 weeks. Patient states that she is feeling a little better today. Shortness of breath has improved, however, patient states she has not walked today. Cough has improved. Patient denies any chest pain or palpitations. No headaches or dizziness. No fevers or chills. No nausea, vomiting, or abdominal pain. No dysuria. No diarrhea or constipation. Physical exam: General: Awake and alert sitting up in bed in no acute distress HEENT: Normocephalic, atraumatic. Extraocular muscles intact, pupils equal and reactive, no scleral icterus. Oropharynx is pink and moist. No pharyngeal erythema or exudate appreciated. Neck is supple. Cardiovascular: Regular rhythm. Normal S1 and S2. No murmurs, rubs, or gallops appreciated Pulmonary: Normal respiratory effort. Decreased breath sounds. No rhonchi, rales, or wheezing appreciated. Gastrointestinal: Soft, nondistended. Nontender. Positive bowel sounds all 4 quadrants. No guarding. Musculoskeletal: Moves all extremities. No calf tenderness. Trace lower extremity edema appreciated. Central nervous system: AAOx3, CN 2-12 grossly intact. Dermatologic: Skin warm and dry. Assessment and plan: Patient is a 47-year-old female with past medical history significant for anemia, pulmonary embolism and bilateral DVT in 2017, vitamin D deficiency, and hypertension that presented to the emergency room with shortness of breath and nonproductive cough for 2 weeks. 1. Dyspnea secondary bilateral PE. D-dimer on admission >5250. CT angio per radiologist showed bilateral pulmonary emboli are seen in the lower lobe pulmonary arteries and left upper lobe. Follow up bilateral lower extremity venous dopplers. Follow up 2d echo. Continue heparin drip. Case discussed with Dr. Doan who recommended starting Coumadin. Per Dr. Doan, patient to follow up outpatient for further workup. Continue O2 via nasal cannula as needed. Will give Coumadin 10mg x 1 dose tonight 2. History of hypertension. Patient normotensive here. Home norvasc held for now. 3. Vitamin D deficiency. Continue Vitamin D supplementation. 4. Leukocytosis. Likely reactive. Patient afebrile. Downtrending. Continue to monitor. 5. DVT prophylaxis. Heparin drip 6. Edinjuant is a full code. Case was discussed in detail with the patient regarding current diagnosis and treatment plan. All questions answered.
--- NOTE | 2018-07-30 14:55 | CARD ---
APPROVED REPORT Date of service: 07/30/2018 EXAM: Two-dimensional and M-mode echocardiogram with Doppler and color Doppler. INDICATION Pulmonary Embolism R/O RV DYSFUNCTION 2D DIMENSIONS Left Atrium (2D)3.4 (1.6-4.0cm)IVSd1.1 (0.7-1.1cm) LVDd3.5 (3.9-5.9cm)PWd1.2 (0.7-1.1cm) LVDs2.5 (2.5-4.0cm)FS (%) 28.9 % LVEF (%)56.8 (>50%) M-Mode DIMENSIONS Aortic Root2.40 (2.2-3.7cm)Aortic Cusp Exc.1.50 (1.5-2.0cm) Aortic Valve AoV Peak Chllyqya607.0cm/Antwon Peak GR.9mmHg Mitral Valve MV E Hghuvyyv33.1cm/sMV A Ahcoszhj36.2cm/sE/A ratio0.9 TDI E/Lateral E'0.0E/Medial E'0.0 Tricuspid Valve TR Peak Zuzqngit988oc/sRAP [id number] Peak Gr.53mmHg [id number] LEFT VENTRICLE The left ventricle is normal size. There is borderline concentric left ventricular hypertrophy. The left ventricular function is normal.EF-55-60% There is a flattened septum consistent with right ventricle volume and pressure overload. Transmitral Doppler flow pattern is Grade III-reversible restrictive diastolic dysfunction. No left ventricle thrombus noted on this study. There is no ventricular septal defect visualized. There is no left ventricular aneurysm. There is no mass noted in the left ventricle. RIGHT VENTRICLE The right ventricle is moderately to severely dilated. There is normal right ventricular wall thickness. Systolic function of RV is moderately reduced. Prominent Moderator bandnoted ion RV Holland. ATRIA The left atrium size is normal. The right atrium is mildly dilated. The interatrial septum is intact with no evidence for an atrial septal defect. AORTIC VALVE The aortic valve is thickened but opens well. No aortic regurgitation is present. There is no aortic valvular stenosis. There is no aortic valvular vegetation. MITRAL VALVE The mitral valve is thickened but opens well. Mitral regurgitation is trace to mild. There is no mitral valve stenosis. There is no evidence of mitral valve prolapse. TRICUSPID VALVE The tricuspid valve leaflets are thickened , but open well. There is moderate tricuspid regurgitation.[id number] There is moderate pulmonary hypertension. mmof Hg. There is no tricuspid valve stenosis. There is no tricuspid valve prolapse or vegetation. PULMONIC VALVE The pulmonary valve is normal in structure. There is trace pulmonic valvular regurgitation. There is no pulmonic valvular stenosis. GREAT VESSELS The aortic root is normal in size. The ascending aorta is normal in size. The pulmonary artery is normal. The IVC is normal in size and collapses >50% with inspiration. PERICARDIAL EFFUSION There is no pleural effusion. There is no pericardial effusion. <Conclusion> The left ventricle is normal size. There is borderline concentric left ventricular hypertrophy. The left ventricular function is normal.EF-55-60% There is a flattened septum consistent with right ventricle volume and pressure overload. The right ventricle is moderately to severely dilated. Systolic function of RV is moderately reduced. Prominent Moderator bandnoted ion RV Holland. Mitral regurgitation is trace to mild. There is moderate tricuspid regurgitation.[id number] There is moderate pulmonary hypertension. mmof Hg. The IVC is normal in size and collapses >50% with inspiration. There is no pericardial effusion. No vegetation or thrombus noted.
[2018-07-30] MEDS: Heparin25000 units/250ml 1/2NS 25,000 UNITS/250 ML BAG IV PRN ×2 (18:23→23:38)
[2018-07-30 23:11] VITALS: RESP 20
[2018-07-31 07:45] LABS: HEMOGLOBIN 11.4 g/dL (12.0-16.0); MEAN CORPUSCULAR HGB CONC 33.3 g/dl (31.0-37.0); MEAN PLATELET VOLUME 9.1 fl (7.0-11.0); RBC 3.8 10^6/uL (3.5-6.1); WHITE BLOOD COUNT 10.5 10^3/uL (4.5-11.0)
[2018-07-31 07:51] LABS: INR 1.34; PARTIAL THROMBOPLASTIN TIME 73.2 Seconds (25.1-36.5); PROTHROMBIN TIME 15.5 SECONDS (9.4-12.5)
[2018-07-31 08:15] LABS: ALB/GLOB RATIO 1.1 (1.1-1.8); ALBUMIN 3.7 g/dL (3.0-4.8); ALT/SGPT 27 U/L (7-56); AST/SGOT 21 U/L (14-36); BLOOD UREA NITROGEN 14 mg/dL (7-21); CALCIUM 8.9 mg/dL (8.4-10.5); GFR NON-AFRICAN AMERICAN > 60
[2018-07-31] MEDS: Cholecalciferol 1,000 INTLU TAB PO SCH (09:52)
--- NOTE | 2018-07-31 12:35 | CP.PCM.PN ---
<Mor Arambula - Last Filed: 07/31/18 12:30> Subjective - Date & Time of Evaluation Date of Evaluation: 07/31/18 Time of Evaluation: 09:00 - Subjective Subjective: Medicine Progress Note for Hospitalist Service, Dr. Aileen Arambula, DO PGY-1 Pt seen and examined at bedside this am. Denies any acute complaints, observed ambulating out of bed without concerns. No acute events reported overnight. Denies chest pain or shortness of breath. Denies LE pain/swelling/edema. 12- point ROS obtained, otherwise neg as per pt. Objective - Vital Signs/Intake and Output Vital Signs (last 24 hours): Temp Pulse Resp BP Pulse Ox 97.5 F L 84 20 107/80 95 07/31/18 11:49 07/31/18 11:49 07/31/18 11:49 07/31/18 11:49 07/31/18 06:00 Intake and Output: 07/31/18 07/31/18 06:59 18:59 Intake Total 680 Output Total 250 Balance 430 - Medications Medications: Current Medications Cholecalciferol (Vitamin D) 1,000 intlu PO DAILY [facility] Last Admin: 07/31/18 09:52 Dose: Not Given Famotidine (Pepcid) 20 mg PO DAILY [facility] Last Admin: 07/31/18 09:51 Dose: 20 mg Heparin Sodium/Sodium Chloride (Heparin 04211 Units/250ml 1/2 Normal Saline) 25,000 units in 250 mls @ 10.688 mls/hr IV .[id number] PRN; Protocol PRN Reason: ADJUST RATE PER PROTOCOL Last Admin: 07/30/18 23:38 Dose: 15 units/kg/hr, 8.906 mls/hr Warfarin Sodium (Coumadin) 5 mg PO 1800 BRADLEY; Protocol - Labs Labs: 07/31/18 06:45 07/31/18 06:45 PT 15.5 SECONDS (9.4-12.5) H 07/31/18 06:45 INR 1.34 07/31/18 06:45 APTT 73.2 Seconds (25.1-36.5) H 07/31/18 06:45 - Constitutional Appears: Non-toxic, No Acute Distress - Head Exam Head Exam: ATRAUMATIC, NORMOCEPHALIC - Eye Exam Eye Exam: EOMI, Normal appearance, PERRL - ENT Exam ENT Exam: Mucous Membranes Moist - Neck Exam Neck Exam: Full ROM, Normal Inspection. absent: Tenderness - Respiratory Exam Respiratory Exam: Clear to Ausculation Bilateral, NORMAL BREATHING PATTERN. absent: Rales, Rhonchi, Wheezes - Cardiovascular Exam Cardiovascular Exam: REGULAR RHYTHM, +S1, +S2. absent: Gallop, Rubs, Murmur - GI/Abdominal Exam GI & Abdominal Exam: Soft, Normal Bowel Sounds. absent: Distended, Tenderness, Organomegaly - Extremities Exam Extremities Exam: Full ROM, Normal Capillary Refill, Normal Inspection. absent: Pedal Edema, Tenderness - Neurological Exam Neurological Exam: Alert, Awake, CN II-XII Intact, Normal Gait, Oriented x3 - Skin Skin Exam: Dry, Intact, Normal Color, Warm Assessment and Plan - Assessment and Plan (Free Text) Assessment: 47 y o female with a PMHx of anemia, PE and BL DVT, vitamin D deficiency and HTN who presents with SOB 2/2 pulmonary embolism. Plan: Pulmonary Embolism - Hx of Chronic PE/Bilateral DVT (2016) - Previous workup showing slightly lower Factor V - Calls made to quest for lupus labwork - CTA: b/l pulm emboli in lower lobe pulmonary arteries and left upper lobe - ECHO 07/30: borderline concentric LVH, flattened septum c/w R ventricle vol and pressure overload, R ventricle mod-severely dilated, systolic fx of RV moderately reduced, mod tricuspid regurgitation, mod pulm HTN - C/w heparin to coumadin bridge, cont to trend INR - Follow up LE doppler read - Heme/onc consulted (Dr. Doan), recs appreciated - Cardio (Dr. Barajas) consulted for R-sided heart strain noted on echo, recs appreciated Hx of HTN - Normotensive at this time, continue to monitor PPx - Pepcid - Heparin gtt Pt seen, examined with, and plan discussed with Dr. Cornelius, attending physician. Mor Arambula DO PGY-1, Private Duty Lpn Pager #[phone] <Aileen Cornelius R - Last Filed: 08/01/18 18:34> Objective - Vital Signs/Intake and Output Vital Signs (last 24 hours): Temp Pulse Resp BP Pulse Ox 99.2 F 75 20 102/74 95 08/01/18 12:00 08/01/18 12:00 08/01/18 12:00 08/01/18 12:00 08/01/18 06:00 Intake and Output: 08/01/18 08/01/18 06:59 18:59 Intake Total 358 900 Output Total 1 4 Balance 357 896 - Labs Labs: 08/01/18 06:45 08/01/18 06:45 PT 31.7 SECONDS (9.4-12.5) H 08/01/18 06:45 INR 2.70 08/01/18 06:45 APTT 78.2 Seconds (25.1-36.5) H 08/01/18 06:45 Attending/Attestation - Attestation I have personally seen and examined this patient.: Yes I have fully participated in the care of the patient.: Yes I have reviewed all pertinent clinical information, including history, physical exam and plan: Yes Notes (Text): Patient seen and examined by me with resident at 9:20AM on 07/31/18. Case including HPI, physical exam, and assessment and plan discussed with resident. Agree with above with following additions/corrections. Patient is a 47-year-old female with past medical history significant for anemia, pulmonary embolism and bilateral DVT in 2017, vitamin D deficiency, and hypertension that presented to the emergency room with shortness of breath and nonproductive cough for 2 weeks. Patient states that she feels much better today. Shortness of breath has improved. Patient has been able to ambulate. Denies cough. No chest pain or palpitations. No headaches or dizziness. No fevers or chills. No nausea, vomiting, or abdominal pain. No dysuria. No diarrhea or constipation. Physical exam: General: Awake and alert sitting up in bed in no acute distress HEENT: Normocephalic, atraumatic. Extraocular muscles intact, pupils equal and reactive, no scleral icterus. Oropharynx is pink and moist. No pharyngeal erythema or exudate appreciated. Neck is supple. Cardiovascular: Regular rhythm. Normal S1 and S2. No murmurs, rubs, or gallops appreciated Pulmonary: Normal respiratory effort. Decreased breath sounds. No rhonchi, rales, or wheezing appreciated. Gastrointestinal: Soft, nondistended. Nontender. Positive bowel sounds all 4 quadrants. No guarding. Musculoskeletal: Moves all extremities. No calf tenderness. Trace lower extremity edema appreciated. Central nervous system: AAOx3, CN 2-12 grossly intact. Dermatologic: Skin warm and dry. Assessment and plan: Patient is a 47-year-old female with past medical history significant for anemia, pulmonary embolism and bilateral DVT in 2017, vitamin D deficiency, and hypertension that presented to the emergency room with shortness of breath and nonproductive cough for 2 weeks. 1. Dyspnea secondary bilateral PE. D-dimer on admission >5250. CT angio per radi ologist showed bilateral pulmonary emboli are seen in the lower lobe pulmonary arteries and left upper lobe. Lower extremity venous dopplers with bilateral DVTs. 2D echo per water pollution control technician showed left ventricle is normal size, left ventricular function is normal EF of 55-60%, right ventricle is moderately to severely dilated, systolic function of RV is moderately reduced there is moderate pulmonary hypertension. Cardiology following, recommendations appreciated. Stress test recommended in 3-6 months. COUMADIN 5 mg 1 dose tonight. Follow-up INR in a.m. Continue heparin drip. Case discussed with Dr. Doan. Per Dr. Doan, patient to follow up outpatient for further workup. Continue O2 via nasal cannula as needed. 2. History of hypertension. Patient remains normotensive here. Continue to hold norvasc 3. Vitamin D deficiency. Continue Vitamin D supplementation. 4. Leukocytosis. Resolved. Likely reactive. Patient remains afebrile. Continue to monitor. 5. Anemia. Chronic. H&H stable. Continue to monitor. 6. DVT prophylaxis. Heparin drip 7. Paitent is a full code. Case was discussed in detail with the patient regarding current diagnosis and treatment plan. All questions answered.
--- NOTE | 2018-07-31 18:55 | CON ---
DATE: 07/31/2018 CONSULT SERVICE: Cardiology Division, Dr. Bailey Barajas. REASON FOR CONSULTATION: PE and cardiac evaluation. BRIEF CLINICAL HISTORY: This is a 47-year-old female with a past medical history significant for pulmonary embolism, bilateral DVT in 2016. She was on Coumadin till the beginning of this year July and August, then was stopped. Admitted with a 2 weeks history of cough and shortness of breath. Chest x-ray is consistent with pulmonary embolism, unprovoked. The patient was on Coumadin till August 2017, but in August, it was discontinued, switched over to baby aspirin. Now the patient is currently on heparin and Coumadin was started because of affordability. The patient is losing job and cannot take Eliquis and there is no insurance. Denies any chest pain, shortness of breath, or any palpitation. PAST MEDICAL HISTORY: Significant for unprovoked pulmonary embolism in 2016 and was on Coumadin. PAST SURGICAL HISTORY: Significant for laparoscopic cholecystectomy 2 to 3 years ago. FAMILY HISTORY: Significant for asthma and leukemia. SOCIAL HISTORY: Denies smoking. Denies any history of alcohol abuse or any substance abuse. ALLERGIES: NO KNOWN DRUG ALLERGY. CURRENT MEDICATIONS: The patient is just taking baby aspirin and amlodipine 5 mg for hypertension. REVIEW OF SYSTEMS: As per HPI. PHYSICAL EXAMINATION: VITAL SIGNS: Height of the patient 5 feet 2 inches, weight of the patient 133 pounds, body mass index 24.4 kg/m2. Heart rate 85 and blood pressure 111/73. HEENT: PERRLA. Extraocular muscles intact. NECK: Supple. No carotid bruits or thyromegaly. CHEST: Clear to auscultation. HEART: S1 and S2 regular. ABDOMEN: Soft. EXTREMITIES: Clubbing and cyanosis negative. LABORATORY DATA: Blood workup as follows; WBC 10, hemoglobin 11.5, hematocrit 34.2, and platelet count 404. Chemistry shows sodium of 137, potassium 3.9, chloride 109, carbon dioxide 29, anion gap of 12, BUN 40, creatinine 0.7. Troponin remains 0.01 negative. INR today is 1.34. The patient had echocardiography done yesterday that revealed ejection fraction 55% to 60%, consisted RV volume pressure volume overload, moderately severely dilated RV function or right ventricle function is moderately reduced. Prominent moderator band noted in RV apex. Trace to mild mitral regurgitation, moderate tricuspid regurgitation, RV systolic pressure of 60, consists of moderate pulmonary hypertension. CT chest; bilateral pulmonary infiltrate, right middle lobe and upper lobe; bilateral pulmonary embolism was seen in the lower lobe pulmonary arteries and the left upper lobe. IMPRESSION AND PLAN: A 47-year-old female with past medical history of borderline hypertension; history of recurrent pulmonary embolism, second episode unprovoked, suggest lifelong anticoagulation. Eliquis would be 10 mg b.i.d., only followed by 5 mg b.i.d. with patient's affordability. The patient is losing insurance, they cannot take flash, cannot afford Eliquis. So, continue IV heparin in future and start Coumadin till INR level is around 2.5. Discussed with the patient. The patient needs lifelong blood thinner and also follow up deficiency. Discussed with the resident taking care of the patient. I discussed with Dr. Cornelius. We will get the lipid profile, TSH, and hemoglobin A1c for cardiac risk stratification. Also suggest to have a stress test in 3 to 6 months when the patient is able to walk on the treadmill. We will follow with you. Thank you Dr. Cornelius for providing us the opportunity in taking care of the patient, Milady Sandra. Bailey Barajas MD
[2018-08-01] MEDS: Heparin25000 units/250ml 1/2NS 25,000 UNITS/250 ML BAG IV PRN (03:55)
[2018-08-01 06:38] VITALS: O2SAT 95
[2018-08-01 07:10] LABS: HEMOGLOBIN 11.6 g/dL (12.0-16.0); MEAN CELL VOLUME 91.4 fl (80.0-105.0); MEAN CORPUSCULAR HEMOGLOBIN 29.4 pg (25.0-35.0); MEAN CORPUSCULAR HGB CONC 32.2 g/dl (31.0-37.0); MEAN PLATELET VOLUME 9.3 fl (7.0-11.0); RBC 3.94 10^6/uL (3.5-6.1); RED CELL DISTRIBUTION WIDTH 15.9 % (11.5-14.5); WHITE BLOOD COUNT 8.7 10^3/uL (4.5-11.0)
[2018-08-01 07:13] LABS: INR 2.7; PARTIAL THROMBOPLASTIN TIME 78.2 Seconds (25.1-36.5); PROTHROMBIN TIME 31.7 SECONDS (9.4-12.5)
[2018-08-01 07:24] LABS: ALB/GLOB RATIO 1.2 (1.1-1.8); ALT/SGPT 25 U/L (7-56); AST/SGOT 38 U/L (14-36); BLOOD UREA NITROGEN 13 mg/dL (7-21); CALCIUM 9.2 mg/dL (8.4-10.5); GFR NON-AFRICAN AMERICAN > 60; HDL CHOLESTEROL 50 mg/dL (29-60)
[2018-08-01 07:27] LABS: LDL CHOLESTEROL 109 mg/dL (0-129)
[2018-08-01] MEDS: Cholecalciferol 1,000 INTLU TAB PO SCH (09:31)
--- NOTE | 2018-08-01 11:42 | PN ---
DATE: 08/01/2018 REASON FOR CONSULTATION: Followup, cardiac evaluation, acute pulmonary embolism. SUBJECTIVE: The patient denies any chest pain, shortness of breath, or any palpitation. OBJECTIVE: GENERAL: Not in apparent distress. VITAL SIGNS: Temperature afebrile, heart rate 73, and blood pressure 105/64. HEENT: PERRLA. Extraocular muscles intact. NECK: Supple. No carotid bruits or thyromegaly. CHEST: Clear to auscultation. HEART: S1 and S2 regular. ABDOMEN: Soft. EXTREMITIES: Clubbing and cyanosis negative. LABORATORY DATA: Blood workup; WBC 8.7, hemoglobin 11.5, hematocrit 36, and platelet count 471. Chemistry shows sodium 137, potassium 4.2, chloride 105, carbon dioxide 25, anion gap of 11, BUN 13, and creatinine 0.7. Magnesium 2, phosphorus 4.6. INR 2.7. IMPRESSION: A 47-year-old female with past medical history significant for deep vein thrombosis and pulmonary embolism in the past, admitted with unprovoked deep vein thrombosis and pulmonary embolism. The patient is on heparin and Coumadin, cannot afford normal antithrombotic, anticoagulation medication, Eliquis. Today, INR is 2.7. PLAN: We will discontinue heparin. Continue Coumadin. I will discontinue telemetry. Emphasis made to the patient for compliance with the medication and lifelong on anticoagulation because this is a second event happened, first one being a year ago. Stopped Coumadin this year August. The patient had unprovoked DVT and PE again. TSH is within normal limit. Cholesterol 178, LDL 109, HDL 50. Thank you Dr. Hernandez, for providing us the opportunity in taking care of the patient, Milady Sandra. We will discontinue telemetry. Possible discharge to home today. We will set up as outpatient for followup of INR and upon followup Heme/Onc followup. For risk stratification, consider stress test in 3 to 6 months. Bailey Barajas MD
[2018-08-01 12:27] VITALS: BP 102/74; PULSE 75; TEMP 99.2
--- NOTE | 2018-08-01 16:25 | CP.PCM.DIS ---
Provider - Provider Date of Admission: 07/29/18 19:11 Attending physician: Aileen Cornelius DO Primary care physician: Kristin Stevenson MD Consults: 07/29/18 21:05 Consult [Physician Consult] Routine Comment: Consulting Provider: Malathi Doan Consulting Physician: Malathi Doan Reason for Consult: workup for hereditary causes for PE or DVT 07/30/18 16:17 Consult [Physician Consult] Routine Comment: Consulting Provider: Bailey Barajas Consulting Physician: Bailey Barajas Reason for Consult: PE, R heart strain Time Spent in preparation of Discharge (in minutes): 45 Diagnosis - Discharge Diagnosis (1) Pulmonary embolism Status: Acute Priority: High (2) HTN (hypertension) Status: Chronic Priority: High (3) Anemia Status: Chronic Priority: High Hospital Course - Lab Results Lab Results: Micro Results 07/29/18 21:15 Nose MRSA Culture (Admit) - Final MRSA NOT DETECTED Most Recent Lab Values WBC 8.7 10^3/uL (4.5-11.0) 08/01/18 06:45 RBC 3.94 10^6/uL (3.5-6.1) 08/01/18 06:45 Hgb 11.6 g/dL (12.0-16.0) L 08/01/18 06:45 Hct 36.0 % (36.0-48.0) 08/01/18 06:45 MCV 91.4 fl (80.0-105.0) 08/01/18 06:45 MCH 29.4 pg (25.0-35.0) 08/01/18 06:45 MCHC 32.2 g/dl (31.0-37.0) 08/01/18 06:45 RDW 15.9 % (11.5-14.5) H 08/01/18 06:45 Plt Count 471 10^3/uL (120.0-450.0) H 08/01/18 06:45 MPV 9.3 fl (7.0-11.0) 08/01/18 06:45 Gran % 85.1 % (50.0-68.0) H 07/29/18 17:00 Lymph % (Auto) 8.6 % (22.0-35.0) L 07/29/18 17:00 [place] % (Auto) 5.3 % (1.0-6.0) 07/29/18 17:00 Eos % (Auto) 0.8 % (1.5-5.0) L 07/29/18 17:00 Baso % (Auto) 0.2 % (0.0-3.0) 07/29/18 17:00 Gran # 13.08 (1.4-6.5) H 07/29/18 17:00 Lymph # (Auto) 1.3 (1.2-3.4) 07/29/18 17:00 [place] # (Auto) 0.8 (0.1-0.6) H 07/29/18 17:00 Eos # (Auto) 0.1 (0.0-0.7) 07/29/18 17:00 Baso # (Auto) 0.03 K/mm3 (0.0-2.0) 07/29/18 17:00 PT 31.7 SECONDS (9.4-12.5) H 08/01/18 06:45 INR 2.70 08/01/18 06:45 APTT 78.2 Seconds (25.1-36.5) H 08/01/18 06:45 D-Dimer, Quantitative > 5250 ng/mlDDU (0-243) H 07/29/18 17:00 Sodium 137 mmol/L (132-148) 08/01/18 06:45 Potassium 4.2 mmol/L (3.6-5.0) 08/01/18 06:45 Chloride 105 mmol/L (98-107) 08/01/18 06:45 Carbon Dioxide 25 mmol/L (21-33) 08/01/18 06:45 Anion Gap 11 (10-20) 08/01/18 06:45 BUN 13 mg/dL (7-21) 08/01/18 06:45 Creatinine 0.7 mg/dl (0.7-1.2) 08/01/18 06:45 Est GFR ( Amer) > 60 08/01/18 06:45 Est GFR (Non-Af Amer) > 60 08/01/18 06:45 Random Glucose 105 mg/dL (70-110) 08/01/18 06:45 Hemoglobin A1c 5.6 % (4.2-6.5) 08/01/18 06:45 Calcium 9.2 mg/dL (8.4-10.5) 08/01/18 06:45 Phosphorus 4.6 mg/dL (2.5-4.5) H 08/01/18 06:45 Magnesium 2.0 mg/dL (1.7-2.2) 08/01/18 06:45 Total Bilirubin 0.4 mg/dL (0.2-1.3) 08/01/18 06:45 AST 38 U/L (14-36) H D 08/01/18 06:45 ALT 25 U/L (7-56) 08/01/18 06:45 Alkaline Phosphatase 102 U/L (38-126) 08/01/18 06:45 Lactate Dehydrogenase 560 U/L (333-699) 07/29/18 17:00 Total Creatine Kinase 29 U/L (35-230) L 07/29/18 17:00 Troponin I < 0.01 ng/mL 07/29/18 17:00 NT-Pro-B Natriuret Pep 427 pg/mL (0-450) 07/29/18 17:00 Total Protein 7.5 g/dL (5.8-8.3) 08/01/18 06:45 Albumin 4.0 g/dL (3.0-4.8) 08/01/18 06:45 Globulin 3.4 gm/dL 08/01/18 06:45 Albumin/Globulin Ratio 1.2 (1.1-1.8) 08/01/18 06:45 Triglycerides 122 mg/dL (35-160) 08/01/18 06:45 Cholesterol 178 mg/dL (130-200) 08/01/18 06:45 LDL Cholesterol Direct 109 mg/dL (0-129) 08/01/18 06:45 HDL Cholesterol 50 mg/dL (29-60) 08/01/18 06:45 TSH 3rd Generation 2.60 mIU/mL (0.46-4.68) 08/01/18 06:45 Urine Color Yellow (YELLOW) 07/29/18 18:34 Urine Appearance Sl cloudy (CLEAR) 07/29/18 18:34 Urine pH 6.0 (4.7-8.0) 07/29/18 18:34 Ur Specific Egan >= 1.030 (1.005-1.035) 07/29/18 18:34 Urine Protein Trace mg/dL (<30 mg/dL) H 07/29/18 18:34 Urine Glucose (UA) Negative mg/dL (NEGATIVE) 07/29/18 18:34 Urine Ketones Negative mg/dL (NEGATIVE) 07/29/18 18:34 Urine Blood Moderate (NEGATIVE) H 07/29/18 18:34 Urine Nitrate Negative (NEGATIVE) 07/29/18 18:34 Urine Bilirubin Negative (NEGATIVE) 07/29/18 18:34 Urine Urobilinogen 1.0 E.U./dL (<1 E.U./dL) H 07/29/18 18:34 Ur Leukocyte Esterase Negative Paulina/uL (NEGATIVE) 07/29/18 18:34 Urine RBC 1 - 3 /hpf (0-2) H 07/29/18 18:34 Urine WBC 0 - 2 /hpf (0-6) 07/29/18 18:34 Ur Epithelial Cells Many /hpf (0-5) H 07/29/18 18:34 Urine Bacteria Mod /hpf (NONE) 07/29/18 18:34 - Hospital Course Hospital Course: Upon Arrival Pt is a 47 yo female with past medical history of anemia, pulmonary embolism and bilateral DVT in 2017, vitamin D deficiency, and hypertension presents with shortness of breath and nonproductive cough for 2 weeks. Patient initially reported shortness of breath with moderate exertion such as ambulation on stairs but over this past week, shortness of breath has been worsening and is now present with minimal ambulation. Patient was walking to local grocery store, when patient had severe shortness of breath and she came to the emergency department. Patient has a history of pulmonary embolism and bilateral DVT in 2017. PE was found to be unprovoked. Patient has been on low dose aspirin since August. At bedside, patient was not in respiratory distress and was sitting up comfortably in bed. During Hospital Admission Pt was found to have a pulmonary embolism with an elevated D-Dimer. Pt was monitored in the ICU on a heparin drip. Pt has a Hx of Chronic PE/Bilateral DVT (2017). CTA: b/l pulm emboli in lower lobe pulmonary arteries and left upper lobe. ECHO 07/30: borderline concentric LVH, flattened septum c/w R ventricle vol and pressure overload, R ventricle mod-severely dilated, systolic fx of RV moderately reduced, mod tricuspid regurgitation, mod pulm HTN. Heparin to coumadin bridge. Heme/onc and cardio were both consulted. Discharge Pt advised to follow up with primary medical doctor, Dr. Stevenson, on MondayAugust 06 at 4pm. Pt advised to take coumadin indefinitely. Pt to follow up with Hematology (Dr. Doan) within 1 week of discharge. Pt was given an INR machine which will be delivered to her home within 3-5 days. Goal INR is between 2-3. If INR is >3 hold your medication that day. If INR is low (<1.75) take 1 and 1/2 pills that day. Pt advised to hold antihypertensive medications until she goes to her PMD as her blood pressure was WNL while admitted. Pt advised to get her INR checked this Monday. - Date & Time of H&P Date of H&P: 08/01/18 Time of H&P: 08:45 Discharge Exam - Head Exam Head Exam: ATRAUMATIC, NORMOCEPHALIC - Eye Exam Eye Exam: EOMI - ENT Exam ENT Exam: Mucous Membranes Moist - Neck Exam Neck exam: Full Rom - Respiratory Exam Respiratory Exam: NORMAL BREATHING PATTERN. absent: Accessory Muscle Use, Respiratory Distress - Cardiovascular Exam Cardiovascular Exam: +S1, +S2. absent: Diastolic murmur - GI/Abdominal Exam GI & Abdominal Exam: Normal Bowel Sounds, Soft - Extremities Exam Extremities exam: full ROM - Neurological Exam Neurological exam: Alert, Oriented x3 - Psychiatric Exam Psychiatric exam: Normal Affect, Normal Mood - Skin Skin Exam: Dry, Intact, Warm Discharge Plan - Discharge Medications Prescriptions: Warfarin [Coumadin] 5 mg PO DAILY #7 tab - Follow Up Plan Condition: GOOD Disposition: HOME/ ROUTINE Instructions: Vitamin K Diet, Pulmonary Embolism (Blood Clot in the Lungs) (DC), What to Do When Your INR Is Too High , Anti-Clotting Medicines: Warfarin (Coumadin), Warfarin, Going Home on Blood Thinners Additional Instructions: Please follow up with your primary medical doctor, Dr. Stevenson, on MondayAugust 06 at 4pm. You will need to continue Coumadin indefinitely. It will be adjusted by your primary care doctor as needed. You will need a work up for cause of DVT as outpatient. Please follow up with Hematology (Dr. Doan) within 1 week of discharge. You have been given an INR machine to check at home. Your INR machine will be delivered to your home within 3-5 days. Your goal INR is between 2-3. If your INR is >3 hold your medication that day. If your INR is low (<1.75) take 1 and 1/2 pills that day. PLEASE HOLD YOUR BLOOD PRESSURE MEDICATION. YOUR BLOOD PRESSURE HAS BEEN NORMAL IN THE HOSPITAL. PLEASE RECHECK YOUR BLOOD PRESSURE WITH Dr. Stevenson on August 06 and she will decide whether to continue blood pressure medication. WE HAVE GIVEN YOU A PRESCRIPTION FOR INR CHECK ON Monday08/03/18 AT [facility]. PLEASE GO AT YOUR EARLIEST CONVENIENCE ON MONDAY. PLEASE BRING THE SCRIPT WITH YOU. STOP TAKING ASPIRIN AT HOME. If your symptoms return, please go to the nearest emergency department. Referrals: Malathi Doan MD [Staff Provider] - Kristin Stevenson MD [Primary Care Provider] -
--- NOTE | 2018-08-02 19:36 | US ---
HISTORY: Leg pain and swelling. Evaluate for DVT PHYSICIAN(S): Tremayne Hernández MD. TECHNIQUE: Duplex sonography and color-flow Doppler with graded compression were used to evaluate the deep venous systems of both lower extremities. FINDINGS: Bilateral occlusive thrombus is noted in the popliteal and tibial veins. The femoral veins and common femoral veins are patent and compressible bilaterally. IMPRESSION: Bilateral popliteal and tibial DVT. Given her age, the patient may benefit from hypercoagulable workup
== END 2018-08-01 14:16 | disposition home or self-care (01) | DRG 134 ==
LOC: ED 16:37 → ERH 19:11 → ICU 21:07 → 2RSO 07-30 21:46
PROVIDERS: ADMIT Internal Medicine; ATTEND Hospitalist
DX: I26.99 Other pulmonary embolism without acute cor pulmonale (principal); I27.20 Pulmonary hypertension, unspecified; E55.9 Vitamin D deficiency, unspecified; D64.9 Anemia, unspecified; D72.829 Elevated white blood cell count, unspecified; I10 Essential (primary) hypertension; I82.543 Chronic embolism and thrombosis of tibial vein, bilateral; I82.533 Chronic embolism and thrombosis of popliteal vein, bilateral; I08.1 Rheumatic disorders of both mitral and tricuspid valves; Z80.6 Family history of leukemia; Z82.5 Family history of asthma and other chronic lower respiratory diseases; Z82.3 Family history of stroke; R79.1 Abnormal coagulation profile; Z79.01 Long term (current) use of anticoagulants; Z86.711 Personal history of pulmonary embolism; Z90.49 Acquired absence of other specified parts of digestive tract

== ENCOUNTER 2018-08-06 16:33 | Outpatient (CLI) | payer OTHER | END 2018-08-06 16:34 | disposition home or self-care (01) | LOC: LAB 16:33 ==

== ENCOUNTER 2018-08-09 07:29 | Outpatient (CLI) | payer OTHER | END 2018-08-09 07:30 | disposition home or self-care (01) | LOC: LAB 07:29 ==

== ENCOUNTER 2018-08-13 07:33 | Outpatient (CLI) | payer OTHER | END 2018-08-13 07:34 | disposition home or self-care (01) | LOC: LAB 07:33 ==

== ENCOUNTER 2018-08-16 08:11 | Outpatient (CLI) | payer OTHER | END 2018-08-16 08:12 | disposition home or self-care (01) | LOC: LAB 08:11 ==

== ENCOUNTER 2018-08-21 07:21 | Outpatient (CLI) | payer OTHER | END 2018-08-21 07:22 | disposition home or self-care (01) | LOC: LAB 07:21 ==

== ENCOUNTER 2018-08-27 07:27 | Outpatient (CLI) | payer OTHER | END 2018-08-27 07:28 | disposition home or self-care (01) | LOC: LAB 07:27 | DX: Z51.81 Encounter for therapeutic drug level monitoring (principal); Z79.01 Long term (current) use of anticoagulants ==

== ENCOUNTER 2018-09-03 07:27 | Outpatient (CLI) | payer OTHER | END 2018-09-03 07:28 | disposition home or self-care (01) | LOC: LAB 07:27 ==

== ENCOUNTER 2018-09-06 07:30 | Inpatient (IN) | payer OTHER ==
--- NOTE | 2018-09-06 08:08 | ED PDOC ---
Arrival/HPI - General Chief Complaint: Shortness Of Breath Time Seen by Provider: 09/06/18 07:39 Historian: Patient - History of Present Illness Narrative History of Present Illness (Text): 09/06/18 07:59 47 year old female, with past medical history of anemia, pulmonary embolism and bilateral DVT in 2017 (on Warfarin), presents to the ED for evaluation of worsening shortness of breath and dyspnea on exertion since past week. Patient reports recent admission on 07/29/18 for similar symptoms and was discharged home on 08/01/18 s/p improvement to symptoms. Patient reports intermittent onset of symptoms since discharge, which has been worsening for the past couple days. Patient denies any other associated somatic complaints. Patient denies any fevers, chills, headache, dizziness, chest pain, cough, abdominal pain, nausea, vomiting, diarrhea, back pain, neck pain, or any other complaints. PMD: Dr. Stevenson, [facility] Time/Duration: 1 week Symptom Onset: Gradual Symptom Course: Worsening Activities at Onset: Light Context: Home Past Medical History - Provider Review Nursing Documentation Reviewed: Yes - Infectious Disease Hx of Infectious Diseases: None - Reproductive Menopause: No Currently : Unknown - Cardiac Hx Hypertension: Yes - Pulmonary Hx Pulmonary Embolism: Yes Other/Comment: DVT - Neurological Hx Neurological Disorder: No - HEENT Hx HEENT Disorder: No - Renal Hx Renal Disorder: No - Endocrine/Metabolic Hx Endocrine Disorders: No - Hematological/Oncological Hx Blood Disorders: Yes Hx Anemia: Yes - Integumentary Hx Dermatological Disorder: No - Musculoskeletal/Rheumatological Hx Musculoskeletal Disorders: No Hx Falls: No - Gastrointestinal Hx Gastrointestinal Disorders: No - Genitourinary/Gynecological Hx Genitourinary Disorders: No - Psychiatric Hx Psychophysiologic Disorder: No Hx Substance Use: No - Surgical History Hx Cholecystectomy: Yes (2006) - Anesthesia Hx Anesthesia: No Family/Social History - Physician Review Nursing Documentation Reviewed: Yes Family/Social History: No Known Family HX Smoking Status: Never Smoked Hx Alcohol Use: No Hx Substance Use: No Allergies/Home Meds Allergies/Adverse Reactions: Allergies No Known Allergies Allergy (Verified 09/06/18 13:18) Review of Systems - Physician Review All systems were reviewed & negative as marked: Yes - Review of Systems Constitutional: absent: Fevers Respiratory: SOB. absent: Cough Cardiovascular: LYON. absent: Chest Pain Gastrointestinal: absent: Abdominal Pain, Diarrhea, Nausea, Vomiting Genitourinary Female: absent: Dysuria, Urine Output Changes Musculoskeletal: absent: Back Pain, Neck Pain Skin: absent: Rash Neurological: absent: Headache, Dizziness Psychiatric: absent: Anxiety Physical Exam - Physical Exam Narrative Physical Exam (Text): 09/06/18 08:00 Gen: VS reviewed, alert, well developed, well nourished, nontoxic, mild distress. Anxious appearing. ENT: normal pharynx. Eye: EOMI, PERRL. Neck: no JVD, supple, no adenopathy. CV: regular rate, tachycardic, no rubs, no murmur, no gallops, S1, S2, pulses equal and strong. Pulm: no distress, clear to auscultation, no wheeze, no rhonchi, breath sounds equal, no rales. Mildly tachypneic. No accessory muscle use. Abd: soft, nontender, no guarding, no rebound, no rigidity, normal bowel sounds. Ext: no edema. Skin: good color, no rash, no cyanosis. Psych: responds appropriately to questions, normal affect. Neuro: oriented x 3, CN2-12 intact grossly, motor intact, sensation intact. Vital Signs Reviewed: Yes Vital Signs Temp Pulse Resp BP Pulse Ox 09/06/18 07:54 97.8 F 115 H 20 126/62 95 Temperature: Afebrile Blood Pressure: Normal Pulse: Tachycardic Respiratory Rate: Normal Appearance: Positive for: Well-Appearing, Non-Toxic, Comfortable Pain Distress: Mild Mental Status: Positive for: Alert and Oriented X 3 Medical Decision Making ED Course and Treatment: 09/06/18 08:00 Impression: 48 year old female presents to the ED for evaluation of shortness of breath and dyspnea on exertion. Differential Diagnosis included but are not limited to: -- PE Plan: -- CTA -- Labs -- Reassess and disposition Prior Visits: Notes and results from previous visits were reviewed. Progress Notes: 09/06/18 10:[address] Cramer, CTA shows new bilateral PE. Discussed case with Dr. Hernandez, who is aware and agrees with ED management plan, accepts patient admission to Telemetry under her service. Suggest patient to be evaluated for IVC filter. 09/06/18 15:54 late note: patient was seen by the benefits processor, dr. alanis, patient to be admitted to the ICU 09/06/18 17:33 - RAD Interpretation Narrative RAD Interpretations (Text): 09/06/18 10:45 CTA reviewed by radiologist, shows: FINDINGS: PULMONARY ARTERIES: Bilateral pulmonary emboli are seen. There is a clot in the right upper lobe pulmonary artery. Bilateral lower lobe pulmonary emboli are seen right greater than left. The previous study showed bilateral lower lobe emboli but no upper lobe involvement. There are no central emboli seen. Findings were discussed with Dr. Forte at 10:25 a.m. AORTA: No acute findings. No thoracic aortic aneurysm. No aortic atherosclerotic calcification or mural plaque present. LUNGS: The previous study showed right upper lobe and left upper lobe infiltrates. These have resolved. There is a minimal patchy infiltrate in the superior segment of the right lower lobe PLEURAL SPACES: Unremarkable. No effusion or pneumothorax. HEART: Unremarkable. No cardiomegaly. No significant pericardial effusion. LYMPH NODES: No lymphadenopathy. BONES, CHEST WALL: Unremarkable. No fracture or destructive lesion OTHER FINDINGS: Unremarkable. IMPRESSION: Bilateral pulmonary emboli are seen. There is a clot in the right upper lobe pulmonary artery. Bilateral lower lobe pulmonary emboli are seen right greater than left. The previous study showed bilateral lower lobe emboli but no upper lobe involvement. There are no central emboli seen. The previous study showed right upper lobe and left upper lobe infiltrates. These have resolved. There is a minimal patchy infiltrate in the superior segment of the right lower lobe Radiology Orders: 09/06/18 07:59 ANGIO CHEST PE PROTOCOL [CT] Stat Credit Advisor: Radiologist - EKG Interpretation EKG Interpretation (Text): 09/06/18 07:52 EKG reviewed, shows Sinus tachycardia at 108 bpm, Normal QRS, Normal axis, lateral ST depression. Interpreted by ED Physician: Yes Type: 12 lead EKG - Scribe Statement The provider has reviewed the documentation as recorded by the Reaganibtyrese Rouse. All medical record entries made by the Reaganibe were at my direction and personally dictated by me. I have reviewed the chart and agree that the record accurately reflects my personal performance of the history, physical exam, [facility] decision making, and the department course for this patient. I have also personally directed, reviewed, and agree with the discharge instructions and disposition. Disposition/Present on Arrival - Present on Arrival Any Indicators Present on Arrival: No History of DVT/PE: Yes History of Uncontrolled Diabetes: No Urinary Catheter: No History of Decub. Ulcer: No History Surgical Site Infection Following: None - Disposition Have Diagnosis and Disposition been Completed?: Yes Diagnosis: Pulmonary embolism Disposition: HOSPITALIZED Disposition Time: 10:39 Patient Problems: Current Active Problems Problem Status Onset Pulmonary embolism Acute Condition: GUARDED
[2018-09-06] MEDS ORDERED: Sodium Chloride 0.9% 1,000 ML IV SCH (08:15)
[2018-09-06 08:34] LABS: ALB/GLOB RATIO 1.2 (1.1-1.8); ALT/SGPT 22 U/L (7-56); AST/SGOT 36 U/L (14-36); BLOOD UREA NITROGEN 15 mg/dL (7-21); CALCIUM 9.2 mg/dL (8.4-10.5); GFR NON-AFRICAN AMERICAN > 60
[2018-09-06 08:35] LABS: BASO # 0.04 K/mm3 (0.0-2.0); BASO % 0.3 % (0.0-3.0); EOS # 0.2 (0.0-0.7); EOS % 1.7 % (1.5-5.0); HEMOGLOBIN 10.5 g/dL (12.0-16.0); LYMPH # 1.6 (1.2-3.4); LYMPH % 13.5 % (22.0-35.0); MEAN CELL VOLUME 87.6 fl (80.0-105.0); MEAN CORPUSCULAR HEMOGLOBIN 28.4 pg (25.0-35.0); MEAN CORPUSCULAR HGB CONC 32.4 g/dl (31.0-37.0); MEAN PLATELET VOLUME 9.3 fl (7.0-11.0); MONO # 0.7 (0.1-0.6); MONO % 5.7 % (1.0-6.0); RBC 3.7 10^6/uL (3.5-6.1); RED CELL DISTRIBUTION WIDTH 14.8 % (11.5-14.5); WHITE BLOOD COUNT 11.4 10^3/uL (4.5-11.0)
[2018-09-06 08:41] LABS: INR 2.67; PARTIAL THROMBOPLASTIN TIME 36.8 Seconds (26.9-38.3); PROTHROMBIN TIME 30.2 SECONDS (9.4-12.5)
[2018-09-06] MEDS ORDERED: Iohexol 350 MG/100 ML VIAL ONE (08:45)
[2018-09-06 08:46] LABS: B-TYPE NATRIURETIC PEPTIDE 2300 pg/mL (0-450); TROPONIN I 0.04 ng/mL
--- NOTE | 2018-09-06 10:36 | CT ---
Date of service: 09/06/2018 PROCEDURE: CT Chest with contrast (Pulmonary Angiogram) HISTORY: pulmonary embolism COMPARISON: CT 07/29/2018 TECHNIQUE: Axial computed tomography images were obtained of the chest in the pulmonary arterial phase of enhancement. Coronal and sagittal reformatted images were created and reviewed. Intravenous contrast dose: 100 cc of Omni 350 Radiation dose: Total exam DLP = 236.48 mGy-cm. This CT exam was performed using one or more of the following dose reduction techniques: Automated exposure control, adjustment of the mA and/or kV according to patient size, and/or use of iterative reconstruction technique. FINDINGS: PULMONARY ARTERIES: Bilateral pulmonary emboli are seen. There is a clot in the right upper lobe pulmonary artery. Bilateral lower lobe pulmonary emboli are seen right greater than left. The previous study showed bilateral lower lobe emboli but no upper lobe involvement. There are no central emboli seen. Findings were discussed with Dr. Forte at 10:25 a.m. AORTA: No acute findings. No thoracic aortic aneurysm. No aortic atherosclerotic calcification or mural plaque present. LUNGS: The previous study showed right upper lobe and left upper lobe infiltrates. These have resolved. There is a minimal patchy infiltrate in the superior segment of the right lower lobe PLEURAL SPACES: Unremarkable. No effusion or pneumothorax. HEART: Unremarkable. No cardiomegaly. No significant pericardial effusion. LYMPH NODES: No lymphadenopathy. BONES, CHEST WALL: Unremarkable. No fracture or destructive lesion OTHER FINDINGS: Unremarkable. IMPRESSION: Bilateral pulmonary emboli are seen. There is a clot in the right upper lobe pulmonary artery. Bilateral lower lobe pulmonary emboli are seen right greater than left. The previous study showed bilateral lower lobe emboli but no upper lobe involvement. There are no central emboli seen. The previous study showed right upper lobe and left upper lobe infiltrates. These have resolved. There is a minimal patchy infiltrate in the superior segment of the right lower lobe
[2018-09-06] MEDS ORDERED: Heparin25000 units/250ml 1/2NS 25,000 UNITS/250 ML BAG IV PRN (12:04)
--- NOTE | 2018-09-06 12:19 | CP.PCM.HP ---
<McaielGrant - Last Filed: 09/06/18 15:14> History of Present Illness - History of Present Illness History of Present Illness: Juanita St, PGY-1 Medicine H&P Note for Dr. 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 Pt states that this all started about 1 week ago when she noticed that she was having difficulty climbing stairs but states that she at times gets SOB due to recent PE occurance on 07/29/18. CTA on 07/29/18 showed b/l PE seen in the lower lobe pulm arteries and L upper lobe. CTA done in ED on 09/06 showed B/L PE with a new clot in the RUL pulm artery. Pt states that since yesterday she noticed that she no longer can walk a few feet without becoming SOB and having to stop to catch her breath. She also states that during these episodes of SOB she also starts to feel a pounding in her chest which prompted her to return to the ED. She states that after her last PE on 07/29/18 she is compliant on her warfarin dose of 3mg/d. At this time she denies fevers, chills, headache, chest pain, palpitations, LE swelling, calf pain with ambulation, abd pain, n/v, c/d, dysuria or hematuria. She does admit to SOB with exertion but states it is not noticeable if she is laying in bed. She denies any other acute complaints at this time. Pmhx: PEs (2017, 2018) on warfarin, DVTs, HTN, HLD and anemia Pshx: Lap fab Meds: Warfarin 3mg All: NKDA Soc: Denies any tobacco use, denies recent etoh or illicit drug use Fam: Grandmother: Leukemia PMD: Elva Pharm: [facility] Present on Admission - Present on Admission Any Indicators Present on Admission: Yes History of DVT/PE: Yes Review of Systems - Review of Systems Review of Systems: 12 point ROS reviewed and negative except for noted in HPI above. Past Patient History - Infectious Disease Hx of Infectious Diseases: None - Past Social History Smoking Status: Never Smoked - CARDIAC Hx Hypertension: Yes - PULMONARY Hx Pulmonary Embolism: Yes Other/Comment: DVT - NEUROLOGICAL Hx Neurological Disorder: No - HEENT Hx HEENT Problems: No - RENAL Hx Chronic Kidney Disease: No - ENDOCRINE/METABOLIC Hx Endocrine Disorders: No - HEMATOLOGICAL/ONCOLOGICAL Hx Blood Disorders: Yes Hx Anemia: Yes - INTEGUMENTARY Hx Dermatological Problems: No - MUSCULOSKELETAL/RHEUMATOLOGICAL Hx Musculoskeletal Disorders: No Hx Falls: No - GASTROINTESTINAL Hx Gastrointestinal Disorders: No - GENITOURINARY/GYNECOLOGICAL Hx Genitourinary Disorders: No - PSYCHIATRIC Hx Psychophysiologic Disorder: No Hx Substance Use: No - SURGICAL HISTORY Hx Cholecystectomy: Yes (2006) - ANESTHESIA Hx Anesthesia: No Meds Allergies/Adverse Reactions: Allergies Allergy/AdvReac Type Severity Reaction Status Date / Time No Known Allergies Allergy Verified 09/06/18 13:18 Physical Exam - Constitutional Appears: Non-toxic, No Acute Distress - Head Exam Head Exam: ATRAUMATIC, NORMAL INSPECTION, NORMOCEPHALIC - Eye Exam Eye Exam: EOMI, Normal appearance, PERRL - Respiratory Exam Respiratory Exam: Clear to Auscultation Bilateral, NORMAL BREATHING PATTERN. absent: Accessory Muscle Use, Rales, Rhonchi, Wheezes, Respiratory Distress, Stridor - Cardiovascular Exam Cardiovascular Exam: Tachycardia, REGULAR RHYTHM, +S1, +S2. absent: Gallop, Rubs - GI/Abdominal Exam GI & Abdominal Exam: Normal Bowel Sounds, Soft. absent: Distended, Firm, Guarding, Tenderness - Extremities Exam Extremities exam: Positive for: full ROM (negative Homans sign), normal inspecti on, pedal pulses present - Back Exam Back exam: NORMAL INSPECTION. absent: CVA tenderness (L), CVA tenderness (R) - Neurological Exam Neurological exam: Alert, Oriented x3 - Psychiatric Exam Psychiatric exam: Normal Affect, Normal Mood - Skin Skin Exam: Dry, Normal Color, Warm Results - Vital Signs Recent Vital Signs: Last Vital Signs Temp 97.8 F 09/06/18 07:54 Pulse 102 H 09/06/18 12:11 Resp 20 09/06/18 12:11 BP 125/92 H 09/06/18 12:11 Pulse Ox 96 09/06/18 12:11 - Labs Result Diagrams: 09/06/18 08:04 09/06/18 08:04 Labs: Laboratory Results - last 24 hr 09/06/18 09/06/1809/06/19 08:04 08:04 08:04 WBC 11.4 H D RBC 3.70 Hgb 10.5 L Hct 32.4 L MCV 87.6 D MCH 28.4 MCHC 32.4 RDW 14.8 H Plt Count 246 MPV 9.3 Neut % (Auto) 78.8 H Lymph % (Auto) 13.5 L [place] % (Auto) 5.7 Eos % (Auto) 1.7 Baso % (Auto) 0.3 Lymph # (Auto) 1.6 [place] # (Auto) 0.7 H Eos # (Auto) 0.2 Baso # (Auto) 0.04 Absolute Neuts (auto) 9.00 H PT 30.2 H INR 2.67 APTT 36.8 Sodium 141 Potassium 4.0 Chloride 109 H Carbon Dioxide 24 Anion Gap 12 BUN 15 Creatinine 0.7 Est GFR ( Amer) > 60 Est GFR (Non-Af Amer) > 60 Random Glucose 116 H Calcium 9.2 Total Bilirubin 0.7 AST 36 ALT 22 Alkaline Phosphatase 101 Troponin I 0.04 D NT-Pro-B Natriuret Pep 2300 H Total Protein 7.5 Albumin 4.0 Globulin 3.5 Albumin/Globulin Ratio 1.2 Assessment & Plan - Assessment and Plan (Free Text) Assessment: Pt is a 48 yo F with pmhx of multiple PEs (2017, 2018) on warfarin, DVTs, HTN, HLD and anemia who presents to the ER for SOB and palpitations. CTA done in ED shows new PE compared in RUL pulm artery to prior CTA on 08/29/17, while pt is on coumadin. Plan: 1) SOB 2/2 unprovoked PE: - CTA 09/06/18 showed: B/L PE and a clot in the RUL pulm artery. B/L Lower lobe PE are seen R greater than L. Previous study showed b/l lower lobe emboli but no upper lobe involvement. No central emboli seen. - Pt states she is compliant on warfarin, INR = 2.67 today - Pt is tachycardic, but otherwise VSS - Repeat US of LE - Repeat Echo - EKG: Sinus tach @ 108, w/ premature supraventricular complexes - Heparin bolus given - Therapeutic heparin drip (18u/kg/hr) is running - Heme/onc consulted - Dr. Rivera - Pulm consulted- Dr. Felix 2) Hx of HTN: - Currently not on medications - Will cont to monitor 3) Hx of Anemia: - Hgb 10.5 - Will cont to monitor 4) Hx of HLD: - Not on medication, will continue to monitor PPx: GI: Protonix DVT: On heparin <PatriciaAnantjono - Last Filed: 09/06/18 17:08> Results - Vital Signs Recent Vital Signs: Last Vital Signs Temp 97.8 F 09/06/18 07:54 Pulse 102 H 09/06/18 12:11 Resp 20 09/06/18 12:11 BP 125/92 H 09/06/18 12:11 Pulse Ox 96 09/06/18 12:11 - Labs Result Diagrams: 09/06/18 08:04 09/06/18 08:04 Labs: Laboratory Results - last 24 hr 09/06/18 09/06/18 09/06/18 08:04 08:04 08:04 WBC 11.4 H D RBC 3.70 Hgb 10.5 L Hct 32.4 L MCV 87.6 D MCH 28.4 MCHC 32.4 RDW 14.8 H Plt Count 246 MPV 9.3 Neut % (Auto) 78.8 H Lymph % (Auto) 13.5 L [place] % (Auto) 5.7 Eos % (Auto) 1.7 Baso % (Auto) 0.3 Lymph # (Auto) 1.6 [place] # (Auto) 0.7 H Eos # (Auto) 0.2 Baso # (Auto) 0.04 Absolute Neuts (auto) 9.00 H PT 30.2 H INR 2.67 APTT 36.8 Sodium 141 Potassium 4.0 Chloride 109 H Carbon Dioxide 24 Anion Gap 12 BUN 15 Creatinine 0.7 Est GFR ( Amer) > 60 Est GFR (Non-Af Amer) > 60 Random Glucose 116 H Calcium 9.2 Phosphorus Magnesium Total Bilirubin 0.7 AST 36 ALT 22 Alkaline Phosphatase 101 Troponin I 0.04 D NT-Pro-B Natriuret Pep 2300 H Total Protein 7.5 Albumin 4.0 Globulin 3.5 Albumin/Globulin Ratio 1.2 09/06/18 12:14 WBC RBC Hgb Hct MCV MCH MCHC RDW Plt Count MPV Neut % (Auto) Lymph % (Auto) [place] % (Auto) Eos % (Auto) Baso % (Auto) Lymph # (Auto) [place] # (Auto) Eos # (Auto) Baso # (Auto) Absolute Neuts (auto) PT INR APTT Sodium Potassium Chloride Carbon Dioxide Anion Gap BUN Creatinine Est GFR ( Amer) Est GFR (Non-Af Amer) Random Glucose Calcium Phosphorus 3.3 Magnesium 1.9 Total Bilirubin AST ALT Alkaline Phosphatase Troponin I NT-Pro-B Natriuret Pep Total Protein Albumin Globulin Albumin/Globulin Ratio Attending/Attestation - Attestation I have personally seen and examined this patient.: Yes I have fully participated in the care of the patient.: Yes I have reviewed all pertinent clinical information: Yes Notes (Text): 09/06/18 17:01 Medical record note made by the resident after discussion with my direction and input after the patient was personally seen and examined by me. I have reviewed the chart and agree that the record accurately reflects by personal performance of the history, physical exam, data review, and medical decision-making, in the course for the patient. I have also personally directed the plan of care. 48 female with past medical history of anemia, recurrent pulmonary embolism and DVT (first time PE and bilateral DVT in 2017.completed one year warfarin, 2nd time Jun 2018 had bilateral PE and DVT, restarted on warfarin )is admitted with dyspnea on exertion, found to have new right upper lobe Pulmonary embolism in addition to bilateral old PE, lNR today is therapeutic but recently was not therapeutic, less likely warfarin failure, Venous doppler showed bilateral DVT (Right Popliteal DVT, Left Femoral and Popliteal Vein DVT). Patient is started on Heparin drip,we will Hematology and Pulmonary consult, Risk and benefit of anticoagulation was discussed in detail with patient.She is having period, will continue heparin drip and will monitor hemoglobin and hematocrit
--- NOTE | 2018-09-06 15:23 | US ---
HISTORY: Leg pain and swelling. Evaluate for DVT PHYSICIAN(S): Tremayne Hernández MD. TECHNIQUE: Duplex sonography and color-flow Doppler with graded compression were used to evaluate the deep venous systems of both lower extremities. FINDINGS: There is occlusive minimally recanalized thrombus noted in the right popliteal vein. The right femoral vein and common femoral vein are normal and compressible. The proximal right profunda femoral vein is patent. Thrombus is noted extending into the visualized right peroneal vein There is occlusive thrombus in the distal left femoral vein and popliteal vein. The proximal left femoral vein and left common femoral vein are normal and compressible IMPRESSION: Bilateral DVT as described above. The appearance and echogenicity is suggestive of acute/subacute thrombus
--- NOTE | 2018-09-06 18:56 | CARD ---
APPROVED REPORT Date of service: 09/06/2018 EKG Measurement Heart [id number] CT [id number] <Conclusion> Sinus tachycardia Rightward axis Nonspecific ST-T changes Abnormal ECG
[2018-09-06 19:11] VITALS: BMI 24.3
[2018-09-06] MEDS ORDERED: Influenza Vaccine 60 mcg/0.5 mL SYR (4YR UP) IM ONE (19:11)
[2018-09-06] MEDS ORDERED: Pneumococcal 23-Valent Vaccine IM ONE (19:11)
--- NOTE | 2018-09-06 19:33 | CON ---
DATE: 09/06/2018 HISTORY OF PRESENT ILLNESS: This is a 48-year-old lady with history of PE about 10 months ago, on Coumadin with today's INR 2.64, who presented to [facility] with semi acute onset of shortness of breath started about 1 week ago and was getting progressively worse and then. Initially, she was experiencing shortness of breath on exertion; however, today, she could not even go to work because of the shortness of breath. The patient denies any chest pain associated with it. However, she did have episodes of pounding in the chest associated with those episode of shortness of breath. There were no alleviating aggravating factors. The patient denies fever, chills, sweats, nausea, vomiting, diarrhea, constipation. No abdominal pain. No hematuria. A CAT scan of the chest here in [facility] ER showed bilateral pulmonary embolism again. PAST MEDICAL HISTORY: Pulmonary embolism in 2017, 2018, on warfarin; DVTs; hypertension; hyperlipidemia; and anemia. PAST SURGICAL HISTORY: Lap cholecystectomy. MEDICATIONS: Warfarin 3 mg. ALLERGIES: NKDA. SOCIAL HISTORY: No alcohol or illicit drug abuse. No tobacco smoking. FAMILY HISTORY: Noncontributory. REVIEW OF SYSTEMS: Review of 12-organ system other than mentioned in history of present illness is negative. PHYSICAL EXAMINATION: VITAL SIGNS: Heart rate 102, blood pressure 130/90, respiratory rate 20, oxygen saturation 96% on room air. ENT: Head and neck atraumatic. LUNGS: Clear to auscultation bilaterally. HEART: Accentuated P2 component. ABDOMEN: Soft, nontender, nondistended. MUSCULOSKELETAL EXAM: Trace bilateral pedal and ankle edema. NEURO: The patient moves all extremities spontaneously. SKIN: Moist. PSYCH: The patient is alert, awake, and oriented, comfortable when in the bed. LABORATORY DATA: Sodium 141, potassium 4, chloride 109, carbon dioxide 24, BUN 15, creatinine 0.7, glucose 116, phosphorus 3.3, magnesium 1.9. ProBNP 2300. Troponin 0.04, AST 36, ALT 22, total bilirubin 0.7, albumin 4, INR 2.67. WBC 11.4, hemoglobin 10.5, platelet count 246, eosinophils 1.7. EKG showed sinus tachycardia with some premature supraventricular complexes. There is no right bundle-branch block and no specific ischemic changes. CAT scan of the chest revealed bilateral pulmonary embolism, also was mentioned that the previous study showed bilateral lower lobe emboli, but no upper lobe involvement. There are no central emboli seen. The previous study also showed right upper lobe and left upper lobe infiltrates, these have resolved. There is minimal patchy infiltrate in the superior segment of the right lower lobe. ASSESSMENT AND PLAN: This is a 48-year-old lady, who presented with recurrent pulmonary embolus despite good compliance with anticoagulation therapy, which is evidenced by therapeutic level of INR. At present time, she was started on heparin drip and Dr. Rivera was called for consult. We will wait for his consultation. Meanwhile, the patient will be going to ICU for further management and monitoring. We could not get echocardiogram. is elevated, which may or may not be signed off right ventricular strain. The patient; however, is hemodynamically relatively stable, oxygenating well. Blood pressure is stable and the patient is only minimally tachycardic. No indication for thrombolysis in fact elevated INR would be a contraindication in this case anyway. We will continue to target euvolemia, euglycemia, normothermia, and oxygen saturation more than 90%. We will continue with deep vein thrombosis and gastrointestinal prophylaxis. Eugenio Felix MD
--- NOTE | 2018-09-06 23:34 | CP.PCM.CON ---
History of Present Illness - History of Present Illness History of Present Illness: 48 year old female with a history of recurrent DVT/PE on coumadin, presenting with new DVT and PE. The patient notes to increased pain and swelling in her legs and chest pain with shortness of breath which prompted her to come to the ER. She has been compliant with her anticoagulation and denies trauma to her extremities. She does admit to heavy periods with anticoagulation and some fatigue. She is currently on a heparin drip and reports to feeling better. Past medical history: recurrent DVT/PE Past surgical history: Denies Family history: Denies hematologic and oncologic problems Social history: Denies tobacco, alcohol, and illicit drug use Allergies: NKA Review of systems: All remaining review of systems including HEENT, cardiovascular, respiratory, gastrointestinal, genitourinary, musculoskeletal, dermatologic, neurologic, and psychiatric are negative unless mentioned in the HPI. Past Patient History - Infectious Disease Hx of Infectious Diseases: None - Past Social History Smoking Status: Never Smoked - CARDIAC Hx Hypertension: Yes - PULMONARY Hx Pulmonary Embolism: Yes Other/Comment: DVT - NEUROLOGICAL Hx Neurological Disorder: No - HEENT Hx HEENT Problems: No - RENAL Hx Chronic Kidney Disease: No - ENDOCRINE/METABOLIC Hx Endocrine Disorders: No - HEMATOLOGICAL/ONCOLOGICAL Hx Blood Disorders: Yes Hx Anemia: Yes - INTEGUMENTARY Hx Dermatological Problems: No - MUSCULOSKELETAL/RHEUMATOLOGICAL Hx Musculoskeletal Disorders: No Hx Falls: No - GASTROINTESTINAL Hx Gastrointestinal Disorders: No - GENITOURINARY/GYNECOLOGICAL Hx Genitourinary Disorders: No - PSYCHIATRIC Hx Psychophysiologic Disorder: No Hx Substance Use: No - SURGICAL HISTORY Hx Cholecystectomy: Yes (2006) - ANESTHESIA Hx Anesthesia: No Meds Allergies/Adverse Reactions: Allergies Allergy/AdvReac Type Severity Reaction Status Date / Time No Known Allergies Allergy Verified 09/06/18 13:18 - Medications Medications: Current Medications Heparin Sodium/Sodium Chloride (Heparin 15826 Units/250ml 1/2 Normal Saline) 25,000 units in 250 mls @ 10.859 mls/hr IV .Q23H2M PRN; Protocol PRN Reason: ADJUST RATE PER PROTOCOL Last Titration: 09/06/18 20:45 Dose: 15 units/kg/hr, 9.049 mls/hr Pantoprazole Sodium (Protonix Ec Tab) 40 mg PO 0600 BRADLEY Physical Exam - Head Exam Head Exam: ATRAUMATIC - Eye Exam Eye Exam: Normal appearance - ENT Exam ENT Exam: Mucous Membranes Dry - Respiratory Exam Respiratory Exam: Respiratory Distress - Cardiovascular Exam Cardiovascular Exam: +S1, +S2 - GI/Abdominal Exam GI & Abdominal Exam: Normal Bowel Sounds - Extremities Exam Extremities exam: Positive for: pedal edema - Neurological Exam Neurological exam: Oriented x3 - Psychiatric Exam Psychiatric exam: Normal Affect, Normal Mood - Skin Skin Exam: Warm Results - Vital Signs Recent Vital Signs: Last Vital Signs Temp 97.6 F 09/06/18 20:00 Pulse 95 H 09/06/18 22:00 Resp 30 H 09/06/18 22:00 BP 132/85 09/06/18 22:00 Pulse Ox 96 09/06/18 19:00 - Labs Result Diagrams: 09/06/18 08:04 09/06/18 08:04 Labs: Laboratory Results - last 24 hr 09/06/18 09/06/18 09/06/18 08:04 08:04 08:04 WBC 11.4 H D RBC 3.70 Hgb 10.5 L Hct 32.4 L MCV 87.6 D MCH 28.4 MCHC 32.4 RDW 14.8 H Plt Count 246 MPV 9.3 Neut % (Auto) 78.8 H Lymph % (Auto) 13.5 L [place] % (Auto) 5.7 Eos % (Auto) 1.7 Baso % (Auto) 0.3 Lymph # (Auto) 1.6 [place] # (Auto) 0.7 H Eos # (Auto) 0.2 Baso # (Auto) 0.04 Absolute Neuts (auto) 9.00 H PT 30.2 H INR 2.67 APTT 36.8 Sodium 141 Potassium 4.0 Chloride 109 H Carbon Dioxide 24 Anion Gap 12 BUN 15 Creatinine 0.7 Est GFR ( Amer) > 60 Est GFR (Non-Af Amer) > 60 Random Glucose 116 H Calcium 9.2 Phosphorus Magnesium Total Bilirubin 0.7 AST 36 ALT 22 Alkaline Phosphatase 101 Troponin I 0.04 D NT-Pro-B Natriuret Pep 2300 H Total Protein 7.5 Albumin 4.0 Globulin 3.5 Albumin/Globulin Ratio 1.2 09/06/18 09/06/18 12:14 19:11 WBC RBC Hgb Hct MCV MCH MCHC RDW Plt Count MPV Neut % (Auto) Lymph % (Auto) [place] % (Auto) Eos % (Auto) Baso % (Auto) Lymph # (Auto) [place] # (Auto) Eos # (Auto) Baso # (Auto) Absolute Neuts (auto) PT INR APTT > 400.0 H* Sodium Potassium Chloride Carbon Dioxide Anion Gap BUN Creatinine Est GFR ( Amer) Est GFR (Non-Af Amer) Random Glucose Calcium Phosphorus 3.3 Magnesium 1.9 Total Bilirubin AST ALT Alkaline Phosphatase Troponin I NT-Pro-B Natriuret Pep Total Protein Albumin Globulin Albumin/Globulin Ratio Assessment & Plan (1) Pulmonary embolism Assessment and Plan: recurrent DVT/PE consider retrievable IVC filter given extensive LE tumor burden and likely embolized clot to lung coumadin failure given clotting through therapeutic INR agree with heparin drip recommend outpatient Eliquis with proper loading (Eliquis 10mg BID x 7 days, then 5mg BID for life) inherited thrombophilia w/u sent consider CT A/P with PO + IV contrast when more stable to rule out occult malignancy as cause for hypercoagulability Status: Acute Priority: High (2) Anemia Assessment and Plan: retic count, b12, folate, ferritin to further characterize Thank you for this interesting consult. Status: Acute
[2018-09-07 04:03] LABS: BASO # 0.05 K/mm3 (0.0-2.0); BASO % 0.5 % (0.0-3.0); EOS # 0.5 (0.0-0.7); EOS % 4.8 % (1.5-5.0); HEMOGLOBIN 9.1 g/dL (12.0-16.0); LYMPH # 3.2 (1.2-3.4); LYMPH % 34.7 % (22.0-35.0); MEAN CELL VOLUME 87.4 fl (80.0-105.0); MEAN CORPUSCULAR HEMOGLOBIN 27.9 pg (25.0-35.0); MEAN CORPUSCULAR HGB CONC 31.9 g/dl (31.0-37.0); MEAN PLATELET VOLUME 9.3 fl (7.0-11.0); MONO # 0.8 (0.1-0.6); MONO % 8.1 % (1.0-6.0); RBC 3.26 10^6/uL (3.5-6.1); RED CELL DISTRIBUTION WIDTH 15.1 % (11.5-14.5); WHITE BLOOD COUNT 9.3 10^3/uL (4.5-11.0)
[2018-09-07 04:22] LABS: INR 2.22; PARTIAL THROMBOPLASTIN TIME 98.2 Seconds (26.9-38.3); PROTHROMBIN TIME 25.1 SECONDS (9.4-12.5)
[2018-09-07 04:27] LABS: ALB/GLOB RATIO 1.1 (1.1-1.8); ALBUMIN 3.4 g/dL (3.0-4.8); ALT/SGPT 15 U/L (7-56); AST/SGOT 28 U/L (14-36); BLOOD UREA NITROGEN 15 mg/dL (7-21); CALCIUM 8.5 mg/dL (8.4-10.5); GFR NON-AFRICAN AMERICAN > 60
[2018-09-07] MEDS: Pantoprazole 40 mg EC Tab PO SCH (05:51)
--- NOTE | 2018-09-07 08:45 | CP.CCUPN ---
<Gary Jackson - Last Filed: 09/07/18 10:05> CCU Subjective - Physician Review Subjective (Free Text): Gary Jackson, PGY-1, CCU Progress Note for Dr. Neri Patient seen and examined at bedside. Patient had no acute overnight events. Patient reports mild headache overnight and nonproductive cough, but denies any current symptoms such as shortness of breath, chest pain, heart palpitations, abdominal pain, headache, fever, nausea, vomiting, constipation, diarrhea, dysuria, hematuria, bilateral lower extremity swelling or pain. 12-point ROS was unremarkable except for what was mentioned above. CCU Objective - Vital Signs / Intake & Output Vital Signs (Last 4 hours): Vital Signs Pulse Resp BP Pulse Ox 09/07/18 06:00 93 H 35 H 103/80 100 09/07/18 05:00 96 H 87 L Intake and Output (Last 8hrs): Intake & Output 09/06/18 09/07/18 09/07/18 22:59 06:59 14:59 Intake Total 75 665 Output Total 550 Balance 75 115 Weight 133 lb 3.2 oz 136 lb Intake: IV 75 165 Right Forearm 90 Oral 500 Output: Urine 550 Urine, Voided 550 Other: Voiding Method Toilet # Bowel Movements 1 - Physical Exam Head: Positive for: Atraumatic, Normocephalic Pupils: Positive for: PERRL Extroacular Muscles: Positive for: EOMI Mouth: Positive for: Moist Mucous Membranes Respiratory/Chest: Positive for: Wheezes (mild diffuse) Cardiovascular: Positive for: Regular Rate and Rhythm, Normal S1, S2 Abdomen: Positive for: Normal Bowel Sounds. Negative for: Tenderness, Distention Upper Extremity: Positive for: Normal Inspection, NORMAL PULSES Lower Extremity: Positive for: Normal Inspection, NORMAL PULSES. Negative for: CALF TENDERNESS, Asa's Sign Neurological: Positive for: GCS=15, CN II-XII Intact, Speech Normal Skin: Positive for: Warm, Dry, Normal Color Psychiatric: Positive for: Alert, Oriented x 3, Normal Insight, Normal Concentration - Medications Active Medications: Active Medications Generic Name Dose Route Start Last Admin Trade Name Freq PRN Reason Stop Dose Admin Heparin Sodium/Sodium Chloride 25,000 units in 250 mls @ 10.859 mls/hr 09/06/18 12:04 09/07/18 06:30 Heparin 61213 Units/250ml 1/2 Normal Saline IV 12 units/kg/hr .Q23H2M PRN 7.239 mls/hr ADJUST RATE PER PROTOCOL Titration Protocol 18 UNITS/KG/HR Pantoprazole Sodium 40 mg 09/07/18 06:00 09/07/18 05:51 Protonix Ec Tab PO 40 mg 0600 BRADLEY Administration - Patient Studies Lab Studies: Lab Studies 09/07/18 09/07/18 09/07/18 Range/Units 06:10 03:55 03:55 WBC (4.5-11.0) 10^3/uL RBC (3.5-6.1) 10^6/uL Hgb (12.0-16.0) g/dL Hct (36.0-48.0) % MCV (80.0-105.0) fl MCH (25.0-35.0) pg MCHC (31.0-37.0) g/dl RDW (11.5-14.5) % Plt Count (120.0-450.0) 10^3/uL MPV (7.0-11.0) fl Neut % (Auto) (50.0-68.0) % Lymph % (Auto) (22.0-35.0) % Phelps % (Auto) (1.0-6.0) % Eos % (Auto) (1.5-5.0) % Baso % (Auto) (0.0-3.0) % Lymph # (Auto) (1.2-3.4) Phelps # (Auto) (0.1-0.6) Eos # (Auto) (0.0-0.7) Baso # (Auto) (0.0-2.0) K/mm3 Absolute Neuts (auto) (1.4-6.5) Retic Count (0.5-1.5) % PT 25.1 H (9.4-12.5) SECONDS INR 2.22 APTT 98.2 H (26.9-38.3) Seconds Sodium 136 (132-148) mmol/L Potassium 3.8 (3.6-5.0) mmol/L Chloride 109 H (98-107) mmol/L Carbon Dioxide 21 (21-33) mmol/L Anion Gap 10 (10-20) BUN 15 (7-21) mg/dL Creatinine 0.7 (0.7-1.2) mg/dl Est GFR ( Amer) > 60 Est GFR (Non-Af Amer) > 60 Random Glucose 108 (70-110) mg/dL Calcium 8.5 (8.4-10.5) mg/dL Phosphorus (2.5-4.5) mg/dL Magnesium (1.7-2.2) mg/dL Total Bilirubin 0.3 (0.2-1.3) mg/dL AST 28 (14-36) U/L ALT 15 (7-56) U/L Alkaline Phosphatase 92 (38-126) U/L Troponin I ng/mL NT-Pro-B Natriuret Pep (0-450) pg/mL Total Protein 6.6 (5.8-8.3) g/dL Albumin 3.4 (3.0-4.8) g/dL Globulin 3.1 gm/dL Albumin/Globulin Ratio 1.1 (1.1-1.8) Blood Type A POSITIVE Antibody Screen Negative BBK History Checked No verified bt 09/07/18 09/06/18 09/06/18 Range/Units 03:55 19:11 12:14 WBC 9.3 (4.5-11.0) 10^3/uL RBC 3.26 L (3.5-6.1) 10^6/uL Hgb 9.1 L (12.0-16.0) g/dL Hct 28.5 L (36.0-48.0) % MCV 87.4 (80.0-105.0) fl MCH 27.9 (25.0-35.0) pg MCHC 31.9 (31.0-37.0) g/dl RDW 15.1 H (11.5-14.5) % Plt Count 239 (120.0-450.0) 10^3/uL MPV 9.3 (7.0-11.0) fl Neut % (Auto) 51.9 (50.0-68.0) % Lymph % (Auto) 34.7 (22.0-35.0) % Phelps % (Auto) 8.1 H (1.0-6.0) % Eos % (Auto) 4.8 (1.5-5.0) % Baso % (Auto) 0.5 (0.0-3.0) % Lymph # (Auto) 3.2 (1.2-3.4) Phelps # (Auto) 0.8 H (0.1-0.6) Eos # (Auto) 0.5 (0.0-0.7) Baso # (Auto) 0.05 (0.0-2.0) K/mm3 Absolute Neuts (auto) 4.82 (1.4-6.5) Retic Count 1.71 H (0.5-1.5) % PT (9.4-12.5) SECONDS INR APTT > 400.0 H* (26.9-38.3) Seconds Sodium (132-148) mmol/L Potassium (3.6-5.0) mmol/L Chloride (98-107) mmol/L Carbon Dioxide (21-33) mmol/L Anion Gap (10-20) BUN (7-21) mg/dL Creatinine (0.7-1.2) mg/dl Est GFR ( Amer) Est GFR (Non-Af Amer) Random Glucose (70-110) mg/dL Calcium (8.4-10.5) mg/dL Phosphorus 3.3 (2.5-4.5) mg/dL Magnesium 1.9 (1.7-2.2) mg/dL Total Bilirubin (0.2-1.3) mg/dL AST (14-36) U/L ALT (7-56) U/L Alkaline Phosphatase (38-126) U/L Troponin I ng/mL NT-Pro-B Natriuret Pep (0-450) pg/mL Total Protein (5.8-8.3) g/dL Albumin (3.0-4.8) g/dL Globulin gm/dL Albumin/Globulin Ratio (1.1-1.8) Blood Type Antibody Screen BBK History Checked 09/06/18 09/06/18 Range/Units 08:04 08:04 WBC (4.5-11.0) 10^3/uL RBC (3.5-6.1) 10^6/uL Hgb (12.0-16.0) g/dL Hct (36.0-48.0) % MCV (80.0-105.0) fl MCH (25.0-35.0) pg MCHC (31.0-37.0) g/dl RDW (11.5-14.5) % Plt Count (120.0-450.0) 10^3/uL MPV (7.0-11.0) fl Neut % (Auto) (50.0-68.0) % Lymph % (Auto) (22.0-35.0) % Phelps % (Auto) (1.0-6.0) % Eos % (Auto) (1.5-5.0) % Baso % (Auto) (0.0-3.0) % Lymph # (Auto) (1.2-3.4) Phelps # (Auto) (0.1-0.6) Eos # (Auto) (0.0-0.7) Baso # (Auto) (0.0-2.0) K/mm3 Absolute Neuts (auto) (1.4-6.5) Retic Count (0.5-1.5) % PT 30.2 H (9.4-12.5) SECONDS INR 2.67 APTT 36.8 (26.9-38.3) Seconds Sodium (132-148) mmol/L Potassium (3.6-5.0) mmol/L Chloride (98-107) mmol/L Carbon Dioxide (21-33) mmol/L Anion Gap (10-20) BUN (7-21) mg/dL Creatinine (0.7-1.2) mg/dl Est GFR ( Amer) Est GFR (Non-Af Amer) Random Glucose (70-110) mg/dL Calcium (8.4-10.5) mg/dL Phosphorus (2.5-4.5) mg/dL Magnesium (1.7-2.2) mg/dL Total Bilirubin (0.2-1.3) mg/dL AST (14-36) U/L ALT (7-56) U/L Alkaline Phosphatase (38-126) U/L Troponin I 0.04 D ng/mL NT-Pro-B Natriuret Pep 2300 H (0-450) pg/mL Total Protein (5.8-8.3) g/dL Albumin (3.0-4.8) g/dL Globulin gm/dL Albumin/Globulin Ratio (1.1-1.8) Blood Type Antibody Screen BBK History Checked Laboratory Results - last 24 hr 09/06/18 09/06/18 09/06/18 08:04 08:04 12:14 WBC RBC Hgb Hct MCV MCH MCHC RDW Plt Count MPV Neut % (Auto) Lymph % (Auto) Phelps % (Auto) Eos % (Auto) Baso % (Auto) Lymph # (Auto) Phelps # (Auto) Eos # (Auto) Baso # (Auto) Absolute Neuts (auto) Retic Count PT 30.2 H INR 2.67 APTT 36.8 Sodium Potassium Chloride Carbon Dioxide Anion Gap BUN Creatinine Est GFR ( Amer) Est GFR (Non-Af Amer) Random Glucose Calcium Phosphorus 3.3 Magnesium 1.9 Total Bilirubin AST ALT Alkaline Phosphatase Troponin I 0.04 D NT-Pro-B Natriuret Pep 2300 H Total Protein Albumin Globulin Albumin/Globulin Ratio Blood Type Antibody Screen BBK History Checked 09/06/18 09/07/18 09/07/18 19:11 03:55 03:55 WBC 9.3 RBC 3.26 L Hgb 9.1 L Hct 28.5 L MCV 87.4 MCH 27.9 MCHC 31.9 RDW 15.1 H Plt Count 239 MPV 9.3 Neut % (Auto) 51.9 Lymph % (Auto) 34.7 Phelps % (Auto) 8.1 H Eos % (Auto) 4.8 Baso % (Auto) 0.5 Lymph # (Auto) 3.2 Phelps # (Auto) 0.8 H Eos # (Auto) 0.5 Baso # (Auto) 0.05 Absolute Neuts (auto) 4.82 Retic Count 1.71 H PT 25.1 H INR 2.22 APTT > 400.0 H* 98.2 H Sodium Potassium Chloride Carbon Dioxide Anion Gap BUN Creatinine Est GFR ( Amer) Est GFR (Non-Af Amer) Random Glucose Calcium Phosphorus Magnesium Total Bilirubin AST ALT Alkaline Phosphatase Troponin I NT-Pro-B Natriuret Pep Total Protein Albumin Globulin Albumin/Globulin Ratio Blood Type Antibody Screen BBK History Checked 09/07/18 09/07/18 03:55 06:10 WBC RBC Hgb Hct MCV MCH MCHC RDW Plt Count MPV Neut % (Auto) Lymph % (Auto) Phelps % (Auto) Eos % (Auto) Baso % (Auto) Lymph # (Auto) Phelps # (Auto) Eos # (Auto) Baso # (Auto) Absolute Neuts (auto) Retic Count PT INR APTT Sodium 136 Potassium 3.8 Chloride 109 H Carbon Dioxide 21 Anion Gap 10 BUN 15 Creatinine 0.7 Est GFR ( Amer) > 60 Est GFR (Non-Af Amer) > 60 Random Glucose 108 Calcium 8.5 Phosphorus Magnesium Total Bilirubin 0.3 AST 28 ALT 15 Alkaline Phosphatase 92 Troponin I NT-Pro-B Natriuret Pep Total Protein 6.6 Albumin 3.4 Globulin 3.1 Albumin/Globulin Ratio 1.1 Blood Type A POSITIVE Antibody Screen Negative BBK History Checked No verified bt Radiology Impressions: Radiology Impressions Chest CT 09/06/18 07:59 IMPRESSION: Bilateral pulmonary emboli are seen. There is a clot in the right upper lobe pulmonary artery. Bilateral lower lobe pulmonary emboli are seen right greater than left. The previous study showed bilateral lower lobe emboli but no upper lobe involvement. There are no central emboli seen. The previous study showed right upper lobe and left upper lobe infiltrates. These have resolved. There is a minimal patchy infiltrate in the superior segment of the right lower lobe Extremity Ultrasound 09/06/18 11:52 IMPRESSION: Bilateral DVT as described above. The appearance and echogenicity is suggestive of acute/subacute thrombus EKG/Cardiology Studies: Cardiology / EKG Studies 09/06/18 07:52 EKG [ELECTROCARDIOGRAM] Stat Comment: Reason For Exam: SOB Review of Systems - Review of Systems Review of Systems: except for what was mentioned in HPI Critical Care Progress Note - Ventilator Checklist Head of Bed 30 Degrees: Yes PUD Prophalyxis: Yes DVT Prophylaxis: Yes - Nutrition Nutrition: Nutrition Category Date Time Status Heart Healthy Diet [DIET] Diets 09/06/18 Breakfast Active Assessment/Plan - Assessment and Plan (Free Text) Assessment: 48 year old female with past medical history of PE (2017, 2018) on warfarin, DVTs, HTN, HLD, anemia, presents with recurrent DVT and PE with therapeutic INR. Plan: Pulmonary Embolism/DVT -CTA: bilateral pulmonary embolism in lower lobes and rught upper lobe -EKG: sinus tachycardia with HR: 10 -Bilateral lower extremity ultrasound hows bilateral lower extremity DVT -Pro-BNP ordered -Continue with heparin drip 18U/kg/hr -Due to recurrent PE, consider IVC filter. -Follow up reason for anticoagulation from Factor V Leidin, APA panel, prothrombin gene analysis -Follow up abdominal and pelvis CT with PO and IV contrast for evaluation for metastasis. -Follow up echocardiogram for evaluation for etiology of PE Hypertension -Currently normotensive -Not currently on home meds Normocytic Anemia -Hgb: 9.1 -Follow up iron, TIBC, reticulocyte, and ferritin, folate, vitamin B12 -Continue to monitor Hyperlipidemia -Currently not on home medication GI prophylaxis: protonix DVT prophylaxis: currently has DVT and PE, continue with heparin drip Patient plan discussed with attending. - Date & Time Date: 09/07/18 Time: 08:44 <Orlin Neri - Last Filed: 09/07/18 10:21> CCU Objective - Vital Signs / Intake & Output Intake and Output (Last 8hrs): Intake & Output 09/06/18 09/07/18 09/07/18 22:59 06:59 14:59 Intake Total 75 665 Output Total 550 Balance 75 115 Weight 133 lb 3.2 oz 136 lb Intake: IV 75 165 Right Forearm 90 Oral 500 Output: Urine 550 Urine, Voided 550 Other: Voiding Method Toilet # Bowel Movements 1 - Medications Active Medications: Active Medications Generic Name Dose Route Start Last Admin Trade Name Freq PRN Reason Stop Dose Admin Heparin Sodium/Sodium Chloride 25,000 units in 250 mls @ 10.859 mls/hr 09/06/18 12:04 09/07/18 06:30 Heparin 74515 Units/250ml 1/2 Normal Saline IV 12 units/kg/hr .Q23H2M PRN 7.239 mls/hr ADJUST RATE PER PROTOCOL Titration Protocol 18 UNITS/KG/HR Pantoprazole Sodium 40 mg 09/07/18 06:00 09/07/18 05:51 Protonix Ec Tab PO 40 mg 0600 BRADLEY Administration - Patient Studies Lab Studies: Lab Studies 09/07/18 09/07/18 09/07/18 Range/Units 06:10 03:55 03:55 WBC (4.5-11.0) 10^3/uL RBC (3.5-6.1) 10^6/uL Hgb (12.0-16.0) g/dL Hct (36.0-48.0) % MCV (80.0-105.0) fl MCH (25.0-35.0) pg MCHC (31.0-37.0) g/dl RDW (11.5-14.5) % Plt Count (120.0-450.0) 10^3/uL MPV (7.0-11.0) fl Neut % (Auto) (50.0-68.0) % Lymph % (Auto) (22.0-35.0) % Phelps % (Auto) (1.0-6.0) % Eos % (Auto) (1.5-5.0) % Baso % (Auto) (0.0-3.0) % Lymph # (Auto) (1.2-3.4) Phelps # (Auto) (0.1-0.6) Eos # (Auto) (0.0-0.7) Baso # (Auto) (0.0-2.0) K/mm3 Absolute Neuts (auto) (1.4-6.5) Retic Count (0.5-1.5) % PT 25.1 H (9.4-12.5) SECONDS INR 2.22 APTT 98.2 H (26.9-38.3) Seconds Sodium 136 (132-148) mmol/L Potassium 3.8 (3.6-5.0) mmol/L Chloride 109 H (98-107) mmol/L Carbon Dioxide 21 (21-33) mmol/L Anion Gap 10 (10-20) BUN 15 (7-21) mg/dL Creatinine 0.7 (0.7-1.2) mg/dl Est GFR ( Amer) > 60 Est GFR (Non-Af Amer) > 60 Random Glucose 108 (70-110) mg/dL Calcium 8.5 (8.4-10.5) mg/dL Phosphorus (2.5-4.5) mg/dL Magnesium (1.7-2.2) mg/dL Total Bilirubin 0.3 (0.2-1.3) mg/dL AST 28 (14-36) U/L ALT 15 (7-56) U/L Alkaline Phosphatase 92 (38-126) U/L Total Protein 6.6 (5.8-8.3) g/dL Albumin 3.4 (3.0-4.8) g/dL Globulin 3.1 gm/dL Albumin/Globulin Ratio 1.1 (1.1-1.8) Blood Type A POSITIVE Antibody Screen Negative BBK History Checked No verified bt 09/07/18 09/06/18 09/06/18 Range/Units 03:55 19:11 12:14 WBC 9.3 (4.5-11.0) 10^3/uL RBC 3.26 L (3.5-6.1) 10^6/uL Hgb 9.1 L (12.0-16.0) g/dL Hct 28.5 L (36.0-48.0) % MCV 87.4 (80.0-105.0) fl MCH 27.9 (25.0-35.0) pg MCHC 31.9 (31.0-37.0) g/dl RDW 15.1 H (11.5-14.5) % Plt Count 239 (120.0-450.0) 10^3/uL MPV 9.3 (7.0-11.0) fl Neut % (Auto) 51.9 (50.0-68.0) % Lymph % (Auto) 34.7 (22.0-35.0) % Phelps % (Auto) 8.1 H (1.0-6.0) % Eos % (Auto) 4.8 (1.5-5.0) % Baso % (Auto) 0.5 (0.0-3.0) % Lymph # (Auto) 3.2 (1.2-3.4) Phelps # (Auto) 0.8 H (0.1-0.6) Eos # (Auto) 0.5 (0.0-0.7) Baso # (Auto) 0.05 (0.0-2.0) K/mm3 Absolute Neuts (auto) 4.82 (1.4-6.5) Retic Count 1.71 H (0.5-1.5) % PT (9.4-12.5) SECONDS INR APTT > 400.0 H* (26.9-38.3) Seconds Sodium (132-148) mmol/L Potassium (3.6-5.0) mmol/L Chloride (98-107) mmol/L Carbon Dioxide (21-33) mmol/L Anion Gap (10-20) BUN (7-21) mg/dL Creatinine (0.7-1.2) mg/dl Est GFR ( Amer) Est GFR (Non-Af Amer) Random Glucose (70-110) mg/dL Calcium (8.4-10.5) mg/dL Phosphorus 3.3 (2.5-4.5) mg/dL Magnesium 1.9 (1.7-2.2) mg/dL Total Bilirubin (0.2-1.3) mg/dL AST (14-36) U/L ALT (7-56) U/L Alkaline Phosphatase (38-126) U/L Total Protein (5.8-8.3) g/dL Albumin (3.0-4.8) g/dL Globulin gm/dL Albumin/Globulin Ratio (1.1-1.8) Blood Type Antibody Screen BBK History Checked Laboratory Results - last 24 hr 09/06/18 09/06/18 09/07/18 12:14 19:11 03:55 WBC 9.3 RBC 3.26 L Hgb 9.1 L Hct 28.5 L MCV 87.4 MCH 27.9 MCHC 31.9 RDW 15.1 H Plt Count 239 MPV 9.3 Neut % (Auto) 51.9 Lymph % (Auto) 34.7 Phelps % (Auto) 8.1 H Eos % (Auto) 4.8 Baso % (Auto) 0.5 Lymph # (Auto) 3.2 Phelps # (Auto) 0.8 H Eos # (Auto) 0.5 Baso # (Auto) 0.05 Absolute Neuts (auto) 4.82 Retic Count 1.71 H PT INR APTT > 400.0 H* Sodium Potassium Chloride Carbon Dioxide Anion Gap BUN Creatinine Est GFR ( Amer) Est GFR (Non-Af Amer) Random Glucose Calcium Phosphorus 3.3 Magnesium 1.9 Total Bilirubin AST ALT Alkaline Phosphatase Total Protein Albumin Globulin Albumin/Globulin Ratio Blood Type Antibody Screen BBK History Checked 09/07/18 09/07/18 09/07/18 03:55 03:55 06:10 WBC RBC Hgb Hct MCV MCH MCHC RDW Plt Count MPV Neut % (Auto) Lymph % (Auto) Phelps % (Auto) Eos % (Auto) Baso % (Auto) Lymph # (Auto) Phelps # (Auto) Eos # (Auto) Baso # (Auto) Absolute Neuts (auto) Retic Count PT 25.1 H INR 2.22 APTT 98.2 H Sodium 136 Potassium 3.8 Chloride 109 H Carbon Dioxide 21 Anion Gap 10 BUN 15 Creatinine 0.7 Est GFR ( Amer) > 60 Est GFR (Non-Af Amer) > 60 Random Glucose 108 Calcium 8.5 Phosphorus Magnesium Total Bilirubin 0.3 AST 28 ALT 15 Alkaline Phosphatase 92 Total Protein 6.6 Albumin 3.4 Globulin 3.1 Albumin/Globulin Ratio 1.1 Blood Type A POSITIVE Antibody Screen Negative BBK History Checked No verified bt Radiology Impressions: Radiology Impressions Chest CT 09/06/18 07:59 IMPRESSION: Bilateral pulmonary emboli are seen. There is a clot in the right upper lobe pulmonary artery. Bilateral lower lobe pulmonary emboli are seen right greater than left. The previous study showed bilateral lower lobe emboli but no upper lobe involvement. There are no central emboli seen. The previous study showed right upper lobe and left upper lobe infiltrates. These have resolved. There is a minimal patchy infiltrate in the superior segment of the right lower lobe Extremity Ultrasound 09/06/18 11:52 IMPRESSION: Bilateral DVT as described above. The appearance and echogenicity is suggestive of acute/subacute thrombus Critical Care Progress Note - Nutrition Nutrition: Nutrition Category Date Time Status Heart Healthy Diet [DIET] Diets 09/06/18 Breakfast Active Attending/Attestation - Attestation I have personally seen and examined this patient.: Yes I have fully participated in the care of the patient.: Yes I have reviewed all pertinent clinical information: Yes Notes (Text): 09/07/18 10:18 The patient was seen and examined at the bedside. Patient care was discussed with resident Medical records, lab studies were reviewed and management issues were discussed and formulated. Agree with above treatment plans as outlined in 's note with addition of the following: Acute Respiratory Insufficiency \ Hypoxemia \ PE \ DVT -hemodynamic monitoring to maintain MAP>65 -f\u Echo -o2 supplementation to maintain Spo2>90 Pao2>60; currently comfortable on NC -f\u Bun\Cr and U\o -PO diet and aspiration precautions -continue anticoagulation with heparin drip as per heme\onc team -IR team eval for IVC filter -f\u hypercoagulable w\u and mailgnancy w\u -DVT \ PUD prophylaxis CCM time 30mins
[2018-09-07] MEDS ORDERED: Barium Sulfate Susp 2.1% w/v, 2.0% w/w 450 mL Bottle PO ONE (10:01)
[2018-09-07] MEDS ORDERED: diltiaZEM 120 mg/24 Hours CD Cap PO SCH (10:30)
[2018-09-07] MEDS ORDERED: Lidocaine 2% Inj (20ml) ONE (11:31)
[2018-09-07] MEDS ORDERED: Iodixanol 320 mg/ml 150 ml Bottle IV ONE (11:31)
[2018-09-07] MEDS ORDERED: Iodixanol 320 MG/ML 200 ML BOTTLE IV ONE (11:31)
[2018-09-07] MEDS ORDERED: Midazolam 2 MG/2 ML VIAL ONE (12:09)
[2018-09-07 12:21] LABS: FERRITIN 12.8 ng/mL
--- NOTE | 2018-09-07 12:42 | VASCULAR ---
PROCEDURE: IVC Filter placement HISTORY: Recurrent pulmonary emboli on therapeutic anticoagulation. Needs IVC filter PHYSICIAN(S): Tremayne Hernández MD. TECHNIQUE: The relative risks and indications of the procedure were explained to the patient and consent obtained. The patient was placed supine on the arteriogram table the right groin prepped and draped usual sterile fashion. Conscious sedation and monitoring were provided throughout the procedure by a nurse. Via a right common femoral vein approach, a 5 Amharic sheath was placed. The guidewire and flush catheter were advanced over the IVC bifurcation and placed in the left iliac venous system. A PA DSA IVC gram was performed with emphasis on the renal veins. Exchange was made for a support wire placed in the right atrium. The 7 Amharic sheath was advanced to the level of the renal veins. Next a retrievable filter was deployed in the infrarenal IVC at the level of L3. Post deployment venogram was performed. Sheath was removed and hemostasis obtained. The patient tolerated the procedure well. FINDINGS: The visualized iliac veins and IVC are normal. No evidence of IVC thrombus or anomaly is seen. The renal veins are easily identified. The retrievable filter was deployed at the level of L3. IMPRESSION: 1. No evidence of IVC anomaly or thrombus. 2. Successful deployment of a retrievable filter in the infrarenal IVC at the level of L3
[2018-09-07 12:48] LABS: IRON 19 ug/dL (45-180)
[2018-09-07 12:52] LABS: FOLATE 15.3 ng/mL
[2018-09-07 12:58] LABS: % IRON SATURATION 5 % (20-55); TOTAL IRON BINDING CAPACITY 356 ug/dL (265-497)
--- NOTE | 2018-09-07 16:13 | CARD ---
APPROVED REPORT Date of service: 09/07/2018 EXAM: Two-dimensional and M-mode echocardiogram with Doppler and color Doppler. INDICATION Dyspnea Pulmonary Embolism 2D DIMENSIONS Left Atrium (2D)3.5 (1.6-4.0cm)IVSd1.0 (0.7-1.1cm) LVDd3.1 (3.9-5.9cm)PWd1.0 (0.7-1.1cm) LVDs2.3 (2.5-4.0cm)FS (%) 24.4 % LVEF (%)49.9 (>50%) M-Mode DIMENSIONS Aortic Root2.20 (2.2-3.7cm)Aortic Cusp Exc.1.60 (1.5-2.0cm) Aortic Valve AoV Peak Tnwsvony916.0cm/Antwon Peak GR.7mmHg Mitral Valve MV E Xoclgwhd57.0cm/sMV A Xrkurflm74.8cm/sE/A ratio0.8 TDI E/Lateral E'0.0E/Medial E'0.0 Tricuspid Valve TR Peak [id number]/sRAP [id number] Peak Gr.40mmHg [id number] LEFT VENTRICLE The left ventricle is normal size. There is normal left ventricular wall thickness. Left ventricle systolic function is borderline. Transmitral Doppler flow pattern is Grade I-abnormal relaxation pattern. RIGHT VENTRICLE The right ventricle is moderately dilated and severly hypokinetic with possible thrombus in transit Systolic function is severely reduced. ATRIA The left atrium size is normal. The right atrium size is normal. AORTIC VALVE The aortic valve is normal in structure. No aortic regurgitation is present. There is no aortic valvular stenosis. MITRAL VALVE The mitral valve is normal in structure. Mitral regurgitation is trace to mild. TRICUSPID VALVE There is moderate tricuspid regurgitation. There is moderate pulmonary hypertension. GREAT VESSELS The aortic root is normal in size. The IVC is dilated. The IVC collapses <50% with inspiration. PERICARDIAL EFFUSION There is no pericardial effusion. <Conclusion> There is normal left ventricular wall thickness. Left ventricle systolic function is borderline. Transmitral Doppler flow pattern is Grade I-abnormal relaxation pattern. The right ventricle is moderately dilated and severly hypokinetic with possible thrombus in transit Mitral regurgitation is trace to mild. There is moderate tricuspid regurgitation. There is moderate pulmonary hypertension.
--- NOTE | 2018-09-07 16:17 | CP.PCM.PN ---
<Juanita St - Last Filed: 09/07/18 16:13> Subjective - Date & Time of Evaluation Date of Evaluation: 09/07/18 Time of Evaluation: 16:13 - Subjective Subjective: Juanita St, PGY-1 Medicine Progress Note for Dr. Frye: Pt was seen and examined this AM at bedside. Pt had heparin drip held for 1 hour overnight due to elevated PTT, but restarted shortly after with an alteration of dose of drip. Pt states that she continues to feel SOB on minimal exertion. She states that her SOB has not worsened from admission and is still about the same. Otherwise pt has no other acute complaints at this time. Objective - Vital Signs/Intake and Output Vital Signs (last 24 hours): Temp Pulse Resp BP Pulse Ox 99 F 93 H 35 H 103/80 100 09/07/18 04:00 09/07/18 06:00 09/07/18 06:00 09/07/18 06:00 09/07/18 06:00 Intake and Output: 09/07/18 09/07/18 06:59 18:59 Intake Total 740 Output Total 550 Balance 190 - Medications Medications: Current Medications Heparin Sodium/Sodium Chloride (Heparin 80657 Units/250ml 1/2 Normal Saline) 25,000 units in 250 mls @ 10.859 mls/hr IV .Q23H2M PRN; Protocol PRN Reason: ADJUST RATE PER PROTOCOL Last Titration: 09/07/18 06:30 Dose: 12 units/kg/hr, 7.239 mls/hr Pantoprazole Sodium (Protonix Ec Tab) 40 mg PO 0600 [facility] Last Admin: 09/07/18 05:51 Dose: 40 mg - Labs Labs: 09/07/18 03:55 09/07/18 03:55 PT 25.1 SECONDS (9.4-12.5) H 09/07/18 03:55 INR 2.22 09/07/18 03:55 APTT 98.2 Seconds (26.9-38.3) H 09/07/18 03:55 - Constitutional Appears: Non-toxic, No Acute Distress - Head Exam Head Exam: ATRAUMATIC, NORMAL INSPECTION, NORMOCEPHALIC - Eye Exam Eye Exam: EOMI, Normal appearance, PERRL - Respiratory Exam Respiratory Exam: Clear to Ausculation Bilateral, NORMAL BREATHING PATTERN. absent: Accessory Muscle Use, Rales, Rhonchi, Wheezes, Respiratory Distress, Stridor - Cardiovascular Exam Cardiovascular Exam: RRR, +S1, +S2. absent: Gallop, Rubs - GI/Abdominal Exam GI & Abdominal Exam: Soft, Normal Bowel Sounds. absent: Firm, Guarding, Rigid, Tenderness - Extremities Exam Extremities Exam: Normal Inspection. absent: Calf Tenderness (Homans sign (-)), Pedal Edema, Tenderness - Back Exam Back Exam: NORMAL INSPECTION. 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 CTA done in ED shows new PE compared in RUL pulm artery to prior CTA on 08/29/17, while pt is on coumadin. Heme/onc recs are for IVC filter placement and CT abd/pelvis w/ IV and PO contrast. Dr. Hernández: IVC filter placed. Plan: 1) SOB 2/2 unprovoked PE: - CTA 09/06/18 showed: B/L PE and a clot in the RUL pulm artery. B/L Lower lobe PE are seen R greater than L. Previous study showed b/l lower lobe emboli but no upper lobe involvement. No central emboli seen. - Pt states she is compliant on warfarin, INR = 2.67 upon admission - Pts HR is in the 90s, but otherwise VSS - US of LE shows: Clot in R popliteal Vein, R Peroneal Vein, distal L femoral vein and L popliteal vein - Echo: RV is moderately dilated and severely hypokinetic with possible thrombus in transit, mild regurg is trace to mild, mod TR, Mod pulm HTN, EF = 49.9. - EKG: Sinus tach @ 108, w/ premature supraventricular complexes on admission - Therapeutic heparin drip is running - Heme/onc consulted - Dr. Rivera - IVC filter placement should be considered, CT A&P w/ PO and IV contrast to r/o malignancy - F/u CT A&P - IR - Dr. Hernández - IVC filter placed 09/07 - Pulm consulted- Dr. Felix, recs appreciated 2) Hx of HTN: - Currently not on medications - Will cont to monitor 3) Hx of Anemia: - Hgb 10.5 - Will cont to monitor 4) Hx of HLD: - Not on medication, will continue to monitor PPx: GI: Protonix DVT: On heparin Case seen and discussed with Dr. Melva St, PGY-1 <Efren Frye - Last Filed: 09/07/18 17:14> Objective - Vital Signs/Intake and Output Vital Signs (last 24 hours): Temp Pulse Resp BP Pulse Ox 99 F 93 H 35 H 103/80 100 09/07/18 04:00 09/07/18 06:00 09/07/18 06:00 09/07/18 06:00 09/07/18 06:00 Intake and Output: 09/07/18 09/07/18 06:59 18:59 Intake Total 740 Output Total 550 Balance 190 - Medications Medications: Current Medications Heparin Sodium/Sodium Chloride (Heparin 60498 Units/250ml 1/2 Normal Saline) 25,000 units in 250 mls @ 10.859 mls/hr IV .Q23H2M PRN; Protocol PRN Reason: ADJUST RATE PER PROTOCOL Last Titration: 09/07/18 06:30 Dose: 12 units/kg/hr, 7.239 mls/hr Pantoprazole Sodium (Protonix Ec Tab) 40 mg PO 0600 [facility] Last Admin: 09/07/18 05:51 Dose: 40 mg - Labs Labs: 09/07/18 03:55 09/07/18 03:55 PT 25.1 SECONDS (9.4-12.5) H 09/07/18 03:55 INR 2.22 09/07/18 03:55 APTT 98.2 Seconds (26.9-38.3) H 09/07/18 03:55 Attending/Attestation - Attestation I have personally seen and examined this patient.: Yes I have fully participated in the care of the patient.: Yes I have reviewed all pertinent clinical information, including history, physical exam and plan: Yes Notes (Text): 09/07/18 17:13 Recurrent DVT despite being on therapeutic coumadin c/w heparin gtt hematology on board, IR consulted for IVC filter placement CT Abd/pel to r/o underlying malignancy
[2018-09-07] MEDS ORDERED: Heparin25000 units/250ml 1/2NS 25,000 UNITS/250 ML BAG IV PRN (20:00)
[2018-09-08] MEDS: Pantoprazole 40 mg EC Tab PO SCH (05:46)
[2018-09-08 06:04] LABS: BASO # 0.04 K/mm3 (0.0-2.0); BASO % 0.5 % (0.0-3.0); EOS # 0.4 (0.0-0.7); EOS % 4.2 % (1.5-5.0); HEMOGLOBIN 8.9 g/dL (12.0-16.0); LYMPH # 2.4 (1.2-3.4); MEAN CELL VOLUME 87.1 fl (80.0-105.0); MEAN CORPUSCULAR HEMOGLOBIN 28.1 pg (25.0-35.0); MEAN CORPUSCULAR HGB CONC 32.2 g/dl (31.0-37.0); MEAN PLATELET VOLUME 8.8 fl (7.0-11.0); MONO # 0.6 (0.1-0.6); MONO % 6.5 % (1.0-6.0); RBC 3.17 10^6/uL (3.5-6.1); RED CELL DISTRIBUTION WIDTH 15.1 % (11.5-14.5); WHITE BLOOD COUNT 8.7 10^3/uL (4.5-11.0)
[2018-09-08 06:15] LABS: INR 1.85; PROTHROMBIN TIME 20.9 SECONDS (9.4-12.5)
[2018-09-08 06:35] LABS: ALB/GLOB RATIO 1.1 (1.1-1.8); ALBUMIN 3.4 g/dL (3.0-4.8); ALT/SGPT 19 U/L (7-56); AST/SGOT 24 U/L (14-36); BLOOD UREA NITROGEN 13 mg/dL (7-21); CALCIUM 8.8 mg/dL (8.4-10.5); GFR NON-AFRICAN AMERICAN > 60
[2018-09-08] MEDS ORDERED: Iohexol 350 MG/100 ML VIAL ONE (09:49)
--- NOTE | 2018-09-08 10:01 | RAD ---
Date of service: 09/08/2018 HISTORY: SOB COMPARISON: 07/29/2018 FINDINGS: LUNGS: No active pulmonary disease. PLEURA: No significant pleural effusion identified, no pneumothorax apparent. CARDIOVASCULAR: No aortic atherosclerotic calcification present. Normal cardiac size. No pulmonary vascular congestion. OSSEOUS STRUCTURES: No significant abnormalities. VISUALIZED UPPER ABDOMEN: Normal. OTHER FINDINGS: None. IMPRESSION: No active disease.
--- NOTE | 2018-09-08 10:22 | CT ---
Date of service: 09/08/2018 PROCEDURE: CT Abdomen and Pelvis with contrast HISTORY: rule out malignancy COMPARISON: None. TECHNIQUE: Contrast dose: Radiation dose: Total exam DLP = 269.68 mGy-cm. This CT exam was performed using one or more of the following dose reduction techniques: Automated exposure control, adjustment of the mA and/or kV according to patient size, and/or use of iterative reconstruction technique. FINDINGS: LOWER THORAX: Unremarkable. LIVER: Unremarkable. No gross lesion or ductal dilatation. GALLBLADDER AND BILE DUCTS: Gallbladder removed PANCREAS: Unremarkable. No gross lesion or ductal dilatation. SPLEEN: Unremarkable. ADRENALS: Unremarkable. No mass. KIDNEYS AND URETERS: Unremarkable. No hydronephrosis. No solid mass. VASCULATURE: Caval filter is present no aortic atherosclerotic calcification or mural plaque present. BOWEL: Unremarkable. No obstruction. No gross mural thickening. APPENDIX: Normal appendix. PERITONEUM: Unremarkable. No free fluid. No free air. LYMPH NODES: Unremarkable. No enlarged lymph nodes. BLADDER: Unremarkable. REPRODUCTIVE: There is an enlarged fibroid uterus measuring 13 x 8.7 x 12.6 cm in size. BONES: No acute fracture. OTHER FINDINGS: None. IMPRESSION: There is an enlarged fibroid uterus measuring 13 x 8.7 x 12.6 cm in size. No acute intra-abdominal findings. No evidence of malignancy
--- NOTE | 2018-09-08 15:29 | PN ---
DATE: 09/08/2018 W[employer]OW [employer]ADE [employer] SEWER NOTE SUBJECTIVE: The patient is resting in bed, awake and alert. No complaints of shortness of breath, cough, wheezing, chest congestion, on O2 via nasal cannula. The patient has no fever, chills, nausea or vomiting. No abdominal pain. She is on IV heparin at this time. The patient just had cardiac consult done. PHYSICAL EXAMINATION: VITAL SIGNS: Temperature is 97.5, her pulse is 92, respirations are 22 and BP is 145/69, O2 saturation is 95%. HEENT: The patient's head is atraumatic, normocephalic. Eyes reactive to light. Ear, nose and throat seem to be within normal limits. NECK: Supple. No JVD. No thyroid enlargement, no lymph nodes. HEART: Has regular rate and rhythm. Normal S1, S2. LUNGS: Reveal good breath sounds bilaterally. ABDOMEN: Soft. Decreased bowel sounds. GENITALIA AND RECTAL: Deferred. MUSCULOSKELETAL: No joint deformities. EXTREMITIES: Reveal trace lower extremity edema. NEUROLOGIC: She seems to be grossly intact. LABORATORY DATA: As far as her laboratories are concerned, her white count is 8.7, her hemoglobin is 8.9 and hematocrit is 27.6, platelets are 213,000. The patient's PT is 20.9, INR is 1.85 and her PTT is 47.9. The patient's sodium is 138, potassium 3.8, chloride 110, CO2 of 22 with a BUN of 13, creatinine of 0.7 and a glucose of 108. IMPRESSION: This patient has a history of pulmonary embolus approximately 10 months ago, has been on anticoagulation medications and has been compliant and redeveloped deep venous thrombosis and pulmonary embolus and presented to the emergency room. The patient has anemia. Note that echocardiogram of the heart was done and there was a question whether there was right heart strain as well as possible right ventricular thrombus. Cardiology consult was called and Dr. Jain evaluated the echocardiogram. His impression and decision is that there is no right ventricular thrombus and we should continue intravenous heparin at this time. PLAN: As far as our plan, we will continue with O2 via nasal cannula, continue to administer IV heparin, and the patient will be changed to Eliquis and she will continue the Protonix as well as the vitamin B12. The patient will be transferred to telemetry. Mark Carter MD
--- NOTE | 2018-09-08 17:02 | CP.PCM.PN ---
<Juanita St - Last Filed: 09/08/18 16:56> Subjective - Date & Time of Evaluation Date of Evaluation: 09/08/18 Time of Evaluation: 10:00 - Subjective Subjective: Juanita St, PGY-1 Medicine Progress Note for Dr. Frye: Pt was seen and examined this AM at bedside. Pt states that she continues to feel SOB on minimal exertion. She states that her SOB has not worsened from admission and is still about the same. Pt had IVC filter placed 09/07. Will go for CT A&P w/PO and IV contrast. Otherwise pt has no other acute complaints at this time. Objective - Vital Signs/Intake and Output Vital Signs (last 24 hours): Temp Pulse Resp BP Pulse Ox 98.8 F 95 H 25 H 133/84 97 09/08/18 16:00 09/08/18 16:00 09/08/18 16:00 09/08/18 16:00 09/08/18 16:00 Intake and Output: 09/08/18 09/08/18 06:59 18:59 Intake Total 52 740 Balance 52 740 - Medications Medications: Current Medications Apixaban (Eliquis) 10 mg PO BID [facility]; Protocol Stop: 09/15/18 10:01 Last Admin: 09/08/18 10:17 Dose: 10 mg Cyanocobalamin (Vitamin B12 1000 Mcg Tab) 1,000 mcg PO DAILY [facility] Pantoprazole Sodium (Protonix Ec Tab) 40 mg PO 0600 [facility] Last Admin: 09/08/18 05:46 Dose: 40 mg - Labs Labs: 09/08/18 05:00 09/08/18 05:00 PT 20.9 SECONDS (9.4-12.5) H 09/08/18 05:00 INR 1.85 09/08/18 05:00 APTT 47.9 Seconds (26.9-38.3) H 09/08/18 02:00 - Constitutional Appears: Non-toxic, No Acute Distress - Head Exam Head Exam: ATRAUMATIC, NORMAL INSPECTION, NORMOCEPHALIC - Eye Exam Eye Exam: EOMI, Normal appearance, PERRL - Respiratory Exam Respiratory Exam: Clear to Ausculation Bilateral, NORMAL BREATHING PATTERN. absent: Accessory Muscle Use, Rales, Rhonchi, Wheezes, Respiratory Distress, Stridor - Cardiovascular Exam Cardiovascular Exam: RRR, +S1, +S2. absent: Gallop, Rubs - GI/Abdominal Exam GI & Abdominal Exam: Soft, Normal Bowel Sounds. absent: Guarding, Rigid, Tenderness - Extremities Exam Extremities Exam: Normal Inspection. absent: Calf Tenderness, Pedal Edema, Tenderness - Back Exam Back Exam: NORMAL INSPECTION. 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 CTA done in ED shows new PE compared in RUL pulm artery to prior CTA on 08/29/17, while pt is on coumadin. Heme/onc recs are for IVC filter placement and CT abd/pelvis w/ IV and PO contrast. Dr. Hernández: IVC filter placed 09/07. CT A&P done = Enlarged fibroid uterus, no signs of malignancy. Plan: 1) SOB 2/ unprovoked PE: - CTA 09/06/18 showed: B/L PE and a clot in the RUL pulm artery. B/L Lower lobe PE are seen R greater than L. Previous study showed b/l lower lobe emboli but no upper lobe involvement. No central emboli seen. - Pt states she is compliant on warfarin, INR = 2.67 upon admission - Pts HR is in the 90s, but otherwise VSS - US of LE shows: Clot in R popliteal Vein, R Peroneal Vein, distal L femoral vein and L popliteal vein - Echo: RV is moderately dilated and severely hypokinetic with possible thrombus in transit, mild regurg is trace to mild, mod TR, Mod pulm HTN, EF = 49.9. - EKG: Sinus tach @ 108, w/ premature supraventricular complexes on admission - Pt transitioned off of heparin drip to Eliquis earlier today. - Heme/onc consulted - Dr. Rivera - IVC filter placement should be considered, CT A&P w/ PO and IV contrast to r/o malignancy - CT A&P - Enlarged fibroid uterus, on acute intra-abdominal findings. No signs of malignancy. - Repeat CXR: no acute disease. - IR - Dr. Hernández - IVC filter placed 09/07 - Pulm consulted- Dr. Felix, recs appreciated - Will cont to monitor for improvement in [place]. 2) Hx of HTN: - Currently not on medications - Will cont to monitor 3) Hx of Anemia: - Hgb 10.5 - Will cont to monitor 4) Hx of HLD: - Not on medication, will continue to monitor PPx: GI: Protonix DVT: On heparin Case seen and discussed with Dr. Melva St, PGY-1 <Efren Frye - Last Filed: 09/09/18 15:03> Objective - Vital Signs/Intake and Output Vital Signs (last 24 hours): Temp Pulse Resp BP Pulse Ox 98.4 F 102 H 20 119/85 93 L 09/09/18 12:00 09/09/18 12:00 09/09/18 12:00 09/09/18 12:00 09/09/18 06:00 Intake and Output: 09/09/18 09/09/18 06:59 18:59 Intake Total 180 Balance 180 - Medications Medications: Current Medications Apixaban (Eliquis) 10 mg PO BID [facility]; Protocol Stop: 09/15/18 10:01 Last Admin: 09/09/18 09:59 Dose: 10 mg Cyanocobalamin (Vitamin B12 1000 Mcg/Ml Inj) 1,000 mcg IM DAILY [facility] Stop: 09/16/18 10:01 Last Admin: 09/09/18 10:03 Dose: 1,000 mcg Iron Sucrose 200 mg/ Sodium (Chloride) 110 mls @ 110 mls/hr IVPB DAILY [facility] Stop: 09/14/18 10:01 Last Admin: 09/09/18 09:59 Dose: 110 mls/hr Pantoprazole Sodium (Protonix Ec Tab) 40 mg PO 0600 [facility] Last Admin: 09/09/18 05:39 Dose: 40 mg - Labs Labs: 09/09/18 06:30 09/09/18 06:30 PT 22.8 SECONDS (9.4-12.5) H 09/09/18 06:30 INR 2.02 02/10/19 06:30 APTT 33.3 Seconds (26.9-38.3) 09/09/18 06:30 Attending/Attestation - Attestation I have personally seen and examined this patient.: Yes I have fully participated in the care of the patient.: Yes I have reviewed all pertinent clinical information, including history, physical exam and plan: Yes Notes (Text): 09/08/18 14:56 Recurrent DVT despite being on therapeutic coumadin Acute hypoxic respiratory failure pt is s/p IVC filter on 09/07 will switch to Eliquis and DC heparin gtt Pt continues to have periods of hypoxia with minimal exertion hematology on board Pulmonary on board, will f/u any additional recommendations. c/w supplemental O2 as needed. Monitor Hgb closely
--- NOTE | 2018-09-08 21:19 | CP.PCM.PN ---
Subjective - Date & Time of Evaluation Date of Evaluation: 09/08/18 Time of Evaluation: 18:00 - Subjective Subjective: No complaints s/p IVC filter yesterday Objective - Vital Signs/Intake and Output Vital Signs (last 24 hours): Temp Pulse Resp BP Pulse Ox 98.8 F 104 H 36 H 133/84 96 09/08/18 16:00 09/08/18 19:00 09/08/18 19:00 09/08/18 16:00 09/08/18 19:00 Intake and Output: 09/08/18 09/09/18 18:59 06:59 Intake Total 1040 Balance 1040 - Medications Medications: Current Medications Apixaban (Eliquis) 10 mg PO BID [facility]; Protocol Stop: 09/15/18 10:01 Last Admin: 09/08/18 17:16 Dose: 10 mg Cyanocobalamin (Vitamin B12 1000 Mcg Tab) 1,000 mcg PO DAILY [facility] Last Admin: 09/08/18 17:45 Dose: 1,000 mcg Pantoprazole Sodium (Protonix Ec Tab) 40 mg PO 0600 [facility] Last Admin: 09/08/18 05:46 Dose: 40 mg - Labs Labs: 09/08/18 05:00 09/08/18 05:00 PT 20.9 SECONDS (9.4-12.5) H 09/08/18 05:00 INR 1.85 09/08/18 05:00 APTT 47.9 Seconds (26.9-38.3) H 09/08/18 02:00 - Head Exam Head Exam: ATRAUMATIC - Eye Exam Eye Exam: Normal appearance - ENT Exam ENT Exam: Mucous Membranes Dry - Respiratory Exam Respiratory Exam: NORMAL BREATHING PATTERN - Cardiovascular Exam Cardiovascular Exam: +S1, +S2 - GI/Abdominal Exam GI & Abdominal Exam: Normal Bowel Sounds - Extremities Exam Extremities Exam: Pedal Edema Assessment and Plan (1) Pulmonary embolism Assessment & Plan: with DVT recurrent venous clotting while on coumadin; coumadin failure s/p retrievable IVC filter - can be removed in 3 months agree with Eliquis treatment for life Status: Acute (2) Anemia Assessment & Plan: iron and b12 deficiency will supplement Status: Acute
--- NOTE | 2018-09-09 01:22 | CON ---
DATE OF CONSULTATION: 09/08/2018 REQUESTING PHYSICIAN: Dr. Hernandez. REASON FOR CONSULTATION: Possible right atrial thrombus. HISTORY: This is a 48-year-old woman with a history of prior bilateral DVT and pulmonary emboli, who presented to the emergency room with worsening dyspnea for the past several weeks. She was found to have bilateral pulmonary emboli as well as bilateral lower extremity DVTs. An IVC filter has been placed, and she has been on IV heparin. An echocardiogram was performed, and the interpretation suggested the possibility of right atrial thrombus. Cardiac evaluation was requested. She denies any prolonged immobility or any activity either before this event to her prior DVT and PE over a year ago. There is no family history of clotting disorders to the best of her knowledge. PAST MEDICAL HISTORY: Past history is notable for the problems mentioned above. She has had evidence of pulmonary in 2017 as well as in June 2018. She has been maintained on warfarin since her last pulmonary embolus. Her past history is notable for a prior laparoscopic cholecystectomy. She also has a history of hypertension and hyperlipidemia. She has a past history of a prior laparoscopic cholecystectomy. There is no history of loss of pregnancies. MEDICATIONS: Her only medication at home had been warfarin. ALLERGIES: NONE. SOCIAL HISTORY: She does not smoke or drink. FAMILY HISTORY: Unremarkable for premature heart disease or for clotting disorders. REVIEW OF SYSTEMS: A 10-point review of systems is otherwise unremarkable. PHYSICAL EXAMINATION: GENERAL: She is an anxious-appearing middle-aged woman. VITAL SIGNS: Her blood pressure is 130/80 with a pulse of 100 and sinus, respirations are 16. She is afebrile. HEENT: Normocephalic, atraumatic. NECK: Supple. No JVD noted. CHEST: Clear to auscultation and percussion. HEART: PMI in normal position. Soft systolic murmur is noted at the lower left sternal border. ABDOMEN: Soft and nontender with normoactive bowel sounds. EXTREMITIES: No clubbing, cyanosis, or edema. SKIN: Warm and dry. PSYCHIATRIC: Normal mood and affect. NEUROLOGIC: Alert and oriented x3. No gross motor or sensory deficits appreciable. DIAGNOSTIC DATA: Potassium is 3.8, BUN and creatinine are 13 and 0.7. White count is 8.7, hemoglobin and hematocrit are 8.9 and 27.6 with a platelet count of 213,000. INR is 1.85. PTT is 48. BNP is 1130. Her electrocardiogram reveals sinus tachycardia with rightward axis and nonspecific ST-T abnormalities. CT of the chest showed evidence of bilateral pulmonary emboli including the right upper lobe of the pulmonary artery, bilateral lower lobe pulmonary emboli. An echocardiogram was reviewed. This revealed normal left ventricular size and function. There was evidence of septal flattening and dyskinesis consistent with RV volume and pressure overload. Right ventricle appeared dilated and was hypokinetic. No clear thrombus was seen. Moderate tricuspid regurgitation was noted. IMPRESSION/PLAN: 1. Bilateral pulmonary emboli recurrent on anticoagulant therapy. All the above is strongly suspicious for a hypercoagulable state. 2. No clear evidence of right atrial thrombus at the present time. No indication for endovascular intervention with thrombolysis given the hemodynamic stability at this time. IVC filter has been placed, which appears reasonable. Workup for hypercoagulability is currently in progress. Continued anticoagulant therapy should be maintained at this time. The patient appears stable for transfer to monitor bed. Thank you for this consultation. We will be happy to follow along as needed. Liborio Jain MD
[2018-09-09] MEDS: Pantoprazole 40 mg EC Tab PO SCH (05:39)
[2018-09-09 07:30] LABS: ALB/GLOB RATIO 1.1 (1.1-1.8); ALBUMIN 3.4 g/dL (3.0-4.8); ALT/SGPT 21 U/L (7-56); AST/SGOT 21 U/L (14-36); BLOOD UREA NITROGEN 12 mg/dL (7-21); CALCIUM 8.8 mg/dL (8.4-10.5); GFR NON-AFRICAN AMERICAN > 60
[2018-09-09 07:39] LABS: BASO # 0.03 K/mm3 (0.0-2.0); BASO % 0.4 % (0.0-3.0); EOS # 0.4 (0.0-0.7); EOS % 5.1 % (1.5-5.0); HEMOGLOBIN 8.5 g/dL (12.0-16.0); LYMPH # 2.7 (1.2-3.4); LYMPH % 32.8 % (22.0-35.0); MEAN CELL VOLUME 87.5 fl (80.0-105.0); MEAN PLATELET VOLUME 9.4 fl (7.0-11.0); MONO # 0.7 (0.1-0.6); MONO % 8.3 % (1.0-6.0); RBC 3.04 10^6/uL (3.5-6.1); RED CELL DISTRIBUTION WIDTH 15.1 % (11.5-14.5); WHITE BLOOD COUNT 8.2 10^3/uL (4.5-11.0)
[2018-09-09 07:52] LABS: INR 2.02; PARTIAL THROMBOPLASTIN TIME 33.3 Seconds (26.9-38.3); PROTHROMBIN TIME 22.8 SECONDS (9.4-12.5)
--- NOTE | 2018-09-09 14:34 | CP.PCM.PN ---
<Juanita St - Last Filed: 09/09/18 14:31> Subjective - Date & Time of Evaluation Date of Evaluation: 09/09/18 Time of Evaluation: 08:30 - Subjective Subjective: Juanita St, PGY-1 Medicine Progress Note for Dr. Frye: Pt was seen and examined this AM at bedside. Pt states that she continues to feel SOB on minimal exertion, and states that she still has difficulty and SOB when attempting to ambulate to the bathroom. Pt is transferred from ICU to [facility]. She states that her SOB has not worsened from admission and is still about the same. Pt had IVC filter placed 09/07. Otherwise pt has no other acute complaints at this time. Objective - Vital Signs/Intake and Output Vital Signs (last 24 hours): Temp Pulse Resp BP Pulse Ox 98.4 F 102 H 20 119/85 93 L 09/09/18 12:00 09/09/18 12:00 09/09/18 12:00 09/09/18 12:00 09/09/18 06:00 Intake and Output: 09/09/18 09/09/18 06:59 18:59 Intake Total 180 Balance 180 - Medications Medications: Current Medications Apixaban (Eliquis) 10 mg PO BID [facility]; Protocol Stop: 09/15/18 10:01 Last Admin: 09/09/18 09:59 Dose: 10 mg Cyanocobalamin (Vitamin B12 1000 Mcg/Ml Inj) 1,000 mcg IM DAILY [facility] Stop: 09/16/18 10:01 Last Admin: 09/09/18 10:03 Dose: 1,000 mcg Iron Sucrose 200 mg/ Sodium (Chloride) 110 mls @ 110 mls/hr IVPB DAILY [facility] Stop: 09/14/18 10:01 Last Admin: 09/09/18 09:59 Dose: 110 mls/hr Pantoprazole Sodium (Protonix Ec Tab) 40 mg PO 0600 [facility] Last Admin: 09/09/18 05:39 Dose: 40 mg - Labs Labs: 09/09/18 06:30 09/09/18 06:30 PT 22.8 SECONDS (9.4-12.5) H 09/09/18 06:30 INR 2.02 09/09/18 06:30 APTT 33.3 Seconds (26.9-38.3) 09/09/18 06:30 - Constitutional Appears: Non-toxic, No Acute Distress - Head Exam Head Exam: ATRAUMATIC, NORMAL INSPECTION, NORMOCEPHALIC - Eye Exam Eye Exam: EOMI, Normal appearance, PERRL - Respiratory Exam Respiratory Exam: Clear to Ausculation Bilateral, NORMAL BREATHING PATTERN. absent: Accessory Muscle Use, Rales, Rhonchi, Wheezes, Respiratory Distress, Stridor - Cardiovascular Exam Cardiovascular Exam: RRR, +S1, +S2. absent: Gallop, Rubs - GI/Abdominal Exam GI & Abdominal Exam: Soft, Normal Bowel Sounds. absent: Firm, Guarding, Rigid, Tenderness - Extremities Exam Extremities Exam: Normal Inspection, Pedal Edema (minimal pitting edema noted in the LE b/l). absent: Calf Tenderness - Back Exam Back Exam: NORMAL INSPECTION. 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 CTA done in ED shows new PE compared in RUL pulm artery to prior CTA on 08/29/17, while pt is on coumadin. Heme/onc recs are for IVC filter placement and CT abd/pelvis w/ IV and PO contrast. Dr. Hernández: IVC filter placed 09/07. CT A&P done = Enlarged fibroid uterus, no signs of malignancy. Will get stool guiac in the setting of lowering H&H with pt on anti-coagulation. Plan: 1) SOB 2/2 unprovoked PE: - CTA 09/06/18 showed: B/L PE and a clot in the RUL pulm artery. B/L Lower lobe PE are seen R greater than L. Previous study showed b/l lower lobe emboli but no upper lobe involvement. No central emboli seen. - Pt states she is compliant on warfarin, INR = 2.67 upon admission - Pts HR is in the 90s, but otherwise VSS - US of LE shows: Clot in R popliteal Vein, R Peroneal Vein, distal L femoral ve in and L popliteal vein - Echo: RV is moderately dilated and severely hypokinetic with possible thrombus in transit, mild regurg is trace to mild, mod TR, Mod pulm HTN, EF = 49.9. - EKG: Sinus tach @ 108, w/ premature supraventricular complexes on admission - Pt from heparin drip to eliquis yesterday, but continues to feel SOB upon minimal exertion - Heme/onc consulted - Dr. Rivera, myriam appreciated - CT A&P - Enlarged fibroid uterus, on acute intra-abdominal findings. No signs of malignancy. - Repeat CXR: no acute disease. - IR - Dr. Hernández - IVC filter placed 09/07 - Pulm consulted- myriam Bhardwaj appreciated - Will cont to monitor for improvement in [place]. 2) Hx of HTN: - Currently not on medications - Will cont to monitor 3) Hx of Anemia: - Hgb 8.5 - Will get stool guiac to assess for GI bleed in the setting of H&H slowly decreasing and pt on anti-coagulation - Will cont to monitor 4) Hx of HLD: - Not on medication, will continue to monitor PPx: GI: Protonix DVT: On heparin Case seen and discussed with Dr. Melva St, PGY-1 <Efren Frye - Last Filed: 09/09/18 15:07> Objective - Vital Signs/Intake and Output Vital Signs (last 24 hours): Temp Pulse Resp BP Pulse Ox 98.4 F 102 H 20 119/85 93 L 09/09/18 12:00 09/09/18 12:00 09/09/18 12:00 09/09/18 12:00 09/09/18 06:00 Intake and Output: 09/09/18 09/09/18 06:59 18:59 Intake Total 180 Balance 180 - Medications Medications: Current Medications Apixaban (Eliquis) 10 mg PO BID [facility]; Protocol Stop: 09/15/18 10:01 Last Admin: 09/09/18 09:59 Dose: 10 mg Cyanocobalamin (Vitamin B12 1000 Mcg/Ml Inj) 1,000 mcg IM DAILY [facility] Stop: 09/16/18 10:01 Last Admin: 09/09/18 10:03 Dose: 1,000 mcg Iron Sucrose 200 mg/ Sodium (Chloride) 110 mls @ 110 mls/hr IVPB DAILY [facility] Stop: 09/14/18 10:01 Last Admin: 09/09/18 09:59 Dose: 110 mls/hr Pantoprazole Sodium (Protonix Ec Tab) 40 mg PO 0600 [facility] Last Admin: 09/09/18 05:39 Dose: 40 mg - Labs Labs: 09/09/18 06:30 09/09/18 06:30 PT 22.8 SECONDS (9.4-12.5) H 09/09/18 06:30 INR 2.02 09/09/18 06:30 APTT 33.3 Seconds (26.9-38.3) 09/09/18 06:30 Attending/Attestation - Attestation I have personally seen and examined this patient.: Yes I have fully participated in the care of the patient.: Yes I have reviewed all pertinent clinical information, including history, physical exam and plan: Yes Notes (Text): 09/09/18 15:04 Recurrent DVT despite being on therapeutic coumadin Acute hypoxic respiratory failure Anemia pt is s/p IVC filter on 09/07 will switch to Eliquis and DC heparin gtt Pt continues to have periods of hypoxia with minimal exertion hematology on board Pulmonary on board, will f/u any additional recommendations. c/w supplemental O2 as needed. Hgb slowly dropped from 10.5 ->->-> 8.5 no evidence of acute blood loss. Will send for FOBT
--- NOTE | 2018-09-09 21:08 | CP.PCM.PN ---
Subjective - Date & Time of Evaluation Date of Evaluation: 09/09/18 Time of Evaluation: 17:00 - Subjective Subjective: Has some shortness of breath with exertion. Objective - Vital Signs/Intake and Output Vital Signs (last 24 hours): Temp Pulse Resp BP Pulse Ox 98.4 F 88 18 127/85 96 09/09/18 18:00 09/09/18 18:00 09/09/18 18:00 09/09/18 18:00 09/09/18 18:00 Intake and Output: 09/09/18 09/10/18 18:59 06:59 Intake Total 1794 Balance 1794 - Medications Medications: Current Medications Apixaban (Eliquis) 10 mg PO BID [facility]; Protocol Stop: 09/15/18 10:01 Last Admin: 09/09/18 17:24 Dose: 10 mg Cyanocobalamin (Vitamin B12 1000 Mcg/Ml Inj) 1,000 mcg IM DAILY [facility] Stop: 09/16/18 10:01 Last Admin: 09/09/18 10:03 Dose: 1,000 mcg Iron Sucrose 200 mg/ Sodium (Chloride) 110 mls @ 110 mls/hr IVPB DAILY [facility] Stop: 09/14/18 10:01 Last Admin: 09/09/18 09:59 Dose: 110 mls/hr Pantoprazole Sodium (Protonix Ec Tab) 40 mg PO 0600 [facility] Last Admin: 09/09/18 05:39 Dose: 40 mg - Labs Labs: 09/09/18 06:30 09/09/18 06:30 PT 22.8 SECONDS (9.4-12.5) H 09/09/18 06:30 INR 2.02 09/09/18 06:30 APTT 33.3 Seconds (26.9-38.3) 09/09/18 06:30 - Head Exam Head Exam: ATRAUMATIC - Eye Exam Eye Exam: Normal appearance - ENT Exam ENT Exam: Mucous Membranes Dry - Respiratory Exam Respiratory Exam: NORMAL BREATHING PATTERN - Cardiovascular Exam Cardiovascular Exam: +S1, +S2 - GI/Abdominal Exam GI & Abdominal Exam: Normal Bowel Sounds Assessment and Plan (1) Pulmonary embolism Assessment & Plan: recurrent coumadin failure on Eliquis for life Status: Acute (2) Anemia Assessment & Plan: iron and b12 deficiency on supplementation Status: Acute
[2018-09-10 06:37] LABS: BASO # 0.04 K/mm3 (0.0-2.0); BASO % 0.5 % (0.0-3.0); EOS # 0.4 (0.0-0.7); EOS % 4.2 % (1.5-5.0); HEMOGLOBIN 9.2 g/dL (12.0-16.0); LYMPH # 2.3 (1.2-3.4); LYMPH % 27.1 % (22.0-35.0); MEAN CELL VOLUME 87.9 fl (80.0-105.0); MEAN CORPUSCULAR HEMOGLOBIN 27.9 pg (25.0-35.0); MEAN CORPUSCULAR HGB CONC 31.7 g/dl (31.0-37.0); MEAN PLATELET VOLUME 9.6 fl (7.0-11.0); MONO # 0.7 (0.1-0.6); RBC 3.3 10^6/uL (3.5-6.1); RED CELL DISTRIBUTION WIDTH 15.2 % (11.5-14.5); WHITE BLOOD COUNT 8.6 10^3/uL (4.5-11.0)
[2018-09-10 07:21] LABS: ALB/GLOB RATIO 1.1 (1.1-1.8); ALBUMIN 3.7 g/dL (3.0-4.8); ALT/SGPT 18 U/L (7-56); AST/SGOT 26 U/L (14-36); BLOOD UREA NITROGEN 13 mg/dL (7-21); GFR NON-AFRICAN AMERICAN > 60
[2018-09-10] MEDS: Pantoprazole 40 mg EC Tab PO SCH (10:05)
--- NOTE | 2018-09-10 15:12 | CP.PCM.PN ---
<Gary Jackson - Last Filed: 09/10/18 15:08> Subjective - Date & Time of Evaluation Date of Evaluation: 09/10/18 Time of Evaluation: 15:08 - Subjective Subjective: Gary Jackson, PGY-1, Internal Medicine Progress Note for Dr. Caro Patient seen and evaluated at bedside. Patient had no acute overnight events. Patient reports continuation of shortness of breath upon ambulation, nonspecific right sided chest pain upon palpation of ribs, and nonproductive cough. Patient denies fever, chills, heart palpitations, nausea, vomiting, constipation, diarrhea, dysuria, hematuria. Patient had 6 minutes walk test today. During walk test, patient became hypoxic at 88% after 2 minutes of ambulation. Patient also became tachycardic with HR of 143 and RR of 41. 12-point ROS was unremarkable except for what was mentioned above. Objective - Vital Signs/Intake and Output Vital Signs (last 24 hours): Temp Pulse Resp BP Pulse Ox 98.1 F 101 H 18 118/84 94 L 09/10/18 12:00 09/10/18 12:00 09/10/18 12:00 09/10/18 12:00 09/10/18 06:00 Intake and Output: 09/10/18 09/10/18 06:59 18:59 Intake Total 360 Balance 360 - Medications Medications: Current Medications Apixaban (Eliquis) 10 mg PO BID [facility]; Protocol Stop: 09/15/18 10:01 Last Admin: 09/10/18 10:05 Dose: 10 mg Cyanocobalamin (Vitamin B12 1000 Mcg/Ml Inj) 1,000 mcg IM DAILY [facility] Stop: 09/16/18 10:01 Last Admin: 09/10/18 10:04 Dose: 1,000 mcg Iron Sucrose 200 mg/ Sodium (Chloride) 110 mls @ 110 mls/hr IVPB DAILY [facility] Stop: 09/14/18 10:01 Last Admin: 09/10/18 10:05 Dose: 110 mls/hr Pantoprazole Sodium (Protonix Ec Tab) 40 mg PO 0600 [facility] Last Admin: 09/10/18 10:05 Dose: 40 mg - Labs Labs: 09/10/18 06:10 09/10/18 06:10 PT 22.8 SECONDS (9.4-12.5) H 09/09/18 06:30 INR 2.02 09/09/18 06:30 APTT 33.3 Seconds (26.9-38.3) 09/09/18 06:30 - Constitutional Appears: Well, Non-toxic, No Acute Distress - Head Exam Head Exam: ATRAUMATIC, NORMAL INSPECTION, NORMOCEPHALIC - Eye Exam Eye Exam: EOMI, PERRL - Respiratory Exam Respiratory Exam: Clear to Ausculation Bilateral, NORMAL BREATHING PATTERN - Cardiovascular Exam Cardiovascular Exam: Tachycardia, REGULAR RHYTHM - GI/Abdominal Exam GI & Abdominal Exam: Soft, Normal Bowel Sounds. absent: Tenderness - Extremities Exam Extremities Exam: Full ROM Additional comments: negative Asa's test - Neurological Exam Neurological Exam: Alert, Awake, CN II-XII Intact, Oriented x3 - Psychiatric Exam Psychiatric exam: Normal Affect, Normal Mood - Skin Skin Exam: Dry, Intact, Normal Color Assessment and Plan - Assessment and Plan (Free Text) Assessment: 48 year old female with past medical history of PE (2017, 2018) on warfarin, DVTs, HTN, HLD, anemia, presents with recurrent DVT and PE with therapeutic INR. Plan: Pulmonary Embolism/DVT -CTA: bilateral pulmonary embolism in lower lobes and right upper lobe -EKG: sinus tachycardia with HR: 10 -Bilateral lower extremity ultrasound: bilateral lower extremity DVT -Echocardiogram: LVEF: 49.9%, grade 1 abnormal relaxation, right ventricle is moderately dilated and severely hypokinetic, moderate tricuspid regurgitation, moderate pulmonary hypertension -Abdominal and pelvis CT with PO and IV contrast: no evidence of malignancy -6 minute walk test: patient became hypoxic at 88% after 2 minutes of ambulation. Patient also became tachycardic with HR of 143 and RR of 41. -BNP 09/07: 1130 decreased from 2300. Likely elevated from right ventricle strain from pulmonary embolism/pulmonary hypertension. -IVC filter placed by IR on 09/07, Dr. Hernández, due to recurrent DVT/PE to prevent further PE burden. -Continue with Eliquis 10 mg BID -Follow up reason for anticoagulation from Factor V Leidin, APA panel, prothrombin gene analysis Hypertension -Currently normotensive -Not currently on home meds Normocytic Anemia -Hgb: 9.2 -Iron: low at 19 -TIBC: 356 -TIBC % saturation: low at 5 -Ferritin: low at 12.8 -Continue with iron sucrose daily day 2 of 5 -Continue to monitor Low Vitamin B12 -Vitamin B12: low at 229 -Continue with cyanocobalamin 1000 mcg daily Hyperlipidemia -Currently not on home medication GI prophylaxis: protonix 40 mg daily DVT prophylaxis: eliquis 10 mg BID Patient plan discussed with attending. <Isaias Caro - Last Filed: 09/10/18 15:45> Objective - Vital Signs/Intake and Output Vital Signs (last 24 hours): Temp Pulse Resp BP Pulse Ox 98.1 F 101 H 18 118/84 94 L 09/10/18 12:00 09/10/18 12:00 09/10/18 12:00 09/10/18 12:00 09/10/18 06:00 Intake and Output: 09/10/18 09/10/18 06:59 18:59 Intake Total 360 Balance 360 - Medications Medications: Current Medications Apixaban (Eliquis) 10 mg PO BID [facility]; Protocol Stop: 09/15/18 10:01 Last Admin: 09/10/18 10:05 Dose: 10 mg Cyanocobalamin (Vitamin B12 1000 Mcg/Ml Inj) 1,000 mcg IM DAILY [facility] Stop: 09/16/18 10:01 Last Admin: 09/10/18 10:04 Dose: 1,000 mcg Iron Sucrose 200 mg/ Sodium (Chloride) 110 mls @ 110 mls/hr IVPB DAILY [facility] Stop: 09/14/18 10:01 Last Admin: 09/10/18 10:05 Dose: 110 mls/hr Pantoprazole Sodium (Protonix Ec Tab) 40 mg PO 0600 [facility] Last Admin: 09/10/18 10:05 Dose: 40 mg - Labs Labs: 09/10/18 06:10 09/10/18 06:10 PT 22.8 SECONDS (9.4-12.5) H 09/09/18 06:30 INR 2.02 09/09/18 06:30 APTT 33.3 Seconds (26.9-38.3) 09/09/18 06:30 Attending/Attestation - Attestation I have personally seen and examined this patient.: Yes I have fully participated in the care of the patient.: Yes I have reviewed all pertinent clinical information, including history, physical exam and plan: Yes Notes (Text): 09/10/18 15:39 48 year old female with past medical history of DVT/PE on coumadin, hypertens ion, dyslipidemia and anemia who presented with recurrent DVT/PE with therapeutic INR while on coumadin. She is s/p IVC filter. Started on eliquis. Hematology is following. Today patient still reports dyspnea on exertion. She was unable to toleraty physical therapy. She is on iv iron and vitamin B12 for anemia. Isaias Caro MD Hospitalist.
[2018-09-11 04:45] LABS: B2 GLYCOPROTEIN I AB(IGA) <9 SAU (<=20); B2 GLYCOPROTEIN I AB(IGG) <9 SGU (<=20); B2 GLYCOPROTEIN I AB(IGM) <9 SMU (<=20); CARDIOLIPIN AB (IGA) <11 APL (<=11); CARDIOLIPIN AB (IGG) <14 GPL (<=14); CARDIOLIPIN AB (IGM) <12 MPL (<=12)
[2018-09-11] MEDS: Pantoprazole 40 mg EC Tab PO SCH (06:01)
[2018-09-11 06:05] LABS: BASO # 0.05 K/mm3 (0.0-2.0); BASO % 0.5 % (0.0-3.0); EOS # 0.4 (0.0-0.7); HEMOGLOBIN 9.2 g/dL (12.0-16.0); LYMPH # 2.4 (1.2-3.4); LYMPH % 26.2 % (22.0-35.0); MEAN CELL VOLUME 88.4 fl (80.0-105.0); MEAN CORPUSCULAR HEMOGLOBIN 27.5 pg (25.0-35.0); MEAN CORPUSCULAR HGB CONC 31.1 g/dl (31.0-37.0); MEAN PLATELET VOLUME 9.3 fl (7.0-11.0); MONO # 0.8 (0.1-0.6); MONO % 9.1 % (1.0-6.0); RBC 3.35 10^6/uL (3.5-6.1); RED CELL DISTRIBUTION WIDTH 15.3 % (11.5-14.5); WHITE BLOOD COUNT 9.2 10^3/uL (4.5-11.0)
[2018-09-11 06:12] LABS: INR 1.88; PARTIAL THROMBOPLASTIN TIME 37.6 Seconds (26.9-38.3); PROTHROMBIN TIME 21.3 SECONDS (9.4-12.5)
[2018-09-11 06:36] LABS: ALB/GLOB RATIO 1.2 (1.1-1.8); ALT/SGPT 25 U/L (7-56); AST/SGOT 48 U/L (14-36); BLOOD UREA NITROGEN 11 mg/dL (7-21); CALCIUM 9.4 mg/dL (8.4-10.5); GFR NON-AFRICAN AMERICAN > 60
[2018-09-11 07:52] VITALS: O2SAT 96
--- NOTE | 2018-09-11 14:35 | CP.PCM.PN ---
<Gary Jackson - Last Filed: 09/11/18 14:18> Subjective - Date & Time of Evaluation Date of Evaluation: 09/11/18 Time of Evaluation: 14:18 - Subjective Subjective: Gary Jackson, PGY-1, Internal Medicine Progress Note for Dr. Caro Patient seen and evaluated at bedside. Patient had no acute overnight events. This morning, patient denies current shortness of breath but reports reproducible chest pain at the sternum. Patient denied jaw pain, left arm pain, nausea, vomiting, diaphoresis. Patient also denied abdominal pain, constipation, diarrhea, dysuria, and hematuria. Upon presentation, patient was in distress regarding receiving Eliquis, however, after explaining that we would try to help enroll her in a program to receive her medication, patient's anxiety dissipated. This afternoon, patient had 6 minute walk test, but once again, desaturated to 90% after 2 minutes. As a result, test was stopped. 12-point ROS was unremarkable except for what was mentioned above. Objective - Vital Signs/Intake and Output Vital Signs (last 24 hours): Temp Pulse Resp BP Pulse Ox 98.3 F 92 H 18 109/56 L 96 09/11/18 06:00 09/11/18 06:00 09/11/18 06:00 09/11/18 06:00 09/11/18 06:00 Intake and Output: 09/11/18 09/11/18 06:59 18:59 Intake Total 480 Balance 480 - Medications Medications: Current Medications Apixaban (Eliquis) 10 mg PO BID [facility]; Protocol Stop: 09/15/18 10:01 Last Admin: 09/11/18 09:40 Dose: 10 mg Cyanocobalamin (Vitamin B12 1000 Mcg/Ml Inj) 1,000 mcg IM DAILY [facility] Stop: 09/16/18 10:01 Last Admin: 09/11/18 09:40 Dose: 1,000 mcg Iron Sucrose 200 mg/ Sodium (Chloride) 110 mls @ 110 mls/hr IVPB DAILY [facility] Stop: 09/14/18 10:01 Last Admin: 09/11/18 09:40 Dose: 110 mls/hr Pantoprazole Sodium (Protonix Ec Tab) 40 mg PO 0600 [facility] Last Admin: 09/11/18 06:01 Dose: 40 mg - Labs Labs: 09/11/18 05:45 09/11/18 05:45 PT 21.3 SECONDS (9.4-12.5) H 09/11/18 05:45 INR 1.88 09/11/18 05:45 APTT 37.6 Seconds (26.9-38.3) 09/11/18 05:45 - Constitutional Appears: Well, Non-toxic, No Acute Distress - Head Exam Head Exam: ATRAUMATIC, NORMAL INSPECTION, NORMOCEPHALIC - Eye Exam Eye Exam: EOMI Pupil Exam: PERRL - ENT Exam ENT Exam: Mucous Membranes Moist - Neck Exam Neck Exam: Full ROM - Respiratory Exam Respiratory Exam: Clear to Ausculation Bilateral, NORMAL BREATHING PATTERN - Cardiovascular Exam Cardiovascular Exam: REGULAR RHYTHM, RRR - GI/Abdominal Exam GI & Abdominal Exam: Soft, Normal Bowel Sounds. absent: Tenderness - Extremities Exam Extremities Exam: Full ROM, Normal Inspection - Neurological Exam Neurological Exam: Alert, Awake, CN II-XII Intact, Oriented x3 - Psychiatric Exam Psychiatric exam: Normal Affect, Normal Mood - Skin Skin Exam: Dry, Intact, Normal Color Assessment and Plan - Assessment and Plan (Free Text) Assessment: 48 year old female with past medical history of PE (2017, 2018) on warfarin, DVTs, HTN, HLD, anemia, presents with recurrent DVT and PE with therapeutic INR. Plan: Pulmonary Embolism/DVT -CTA 09/06: bilateral pulmonary embolism in lower lobes and right upper lobe -EKG 09/06: sinus tachycardia with HR: 108 -Factor V Leidin, APA panel, prothrombin gene analysis were all negative as cause for hypercoagulable state. -Bilateral lower extremity ultrasound: bilateral lower extremity DVT -Echocardiogram 09/07: LVEF: 49.9%, grade 1 abnormal relaxation, right ventricle is moderately dilated and severely hypokinetic, moderate tricuspid regurgitation, moderate pulmonary hypertension -Abdominal and pelvis CT with PO and IV contrast: no evidence of malignancy -6 minute walk test: patient became hypoxic at 90% after 2 minutes of ambulation -BNP 09/07: 1130 decreased from 2300. Likely elevated from right ventricle strain from pulmonary embolism/pulmonary hypertension. -IVC filter placed by IR on 09/07, Dr. Hernández, due to recurrent DVT/PE to prevent further PE burden. -Continue with Eliquis 10 mg BID until 09/15 for completing loading dose and then reduce to Eliquis 5 mg BID Hypertension -Currently normotensive -Not currently on home meds Normocytic Anemia 2/2 to mixed iron deficiency and vitamin B12 deficiency -Hgb: stable at 9.2 -Iron: low at 19 -TIBC: 356 -TIBC % saturation: low at 5 -Ferritin: low at 12.8 -Continue with iron sucrose daily day 3 of 5 -Vitamin B12: low at 229 -Continue with cyanocobalamin 1000 mcg daily Hyperlipidemia -Currently not on home medication GI prophylaxis: protonix 40 mg daily DVT prophylaxis: eliquis 10 mg BID Disposition: PT has been consulted for recommendations regarding placement for patient due to repeated failure of 6 minute walk test. Patient has been transferred to telemetry as patient is hemodynamically stable at rest. Patient plan discussed with attending. <Isaias Caro - Last Filed: 09/11/18 16:02> Objective - Vital Signs/Intake and Output Vital Signs (last 24 hours): Temp Pulse Resp BP Pulse Ox 98.3 F 92 H 18 109/56 L 96 09/11/18 06:00 09/11/18 06:00 09/11/18 06:00 09/11/18 06:00 09/11/18 06:00 Intake and Output: 09/11/18 09/11/18 06:59 18:59 Intake Total 480 Balance 480 - Medications Medications: Current Medications Apixaban (Eliquis) 10 mg PO BID [facility]; Protocol Stop: 09/15/18 10:01 Last Admin: 09/11/18 09:40 Dose: 10 mg Cyanocobalamin (Vitamin B12 1000 Mcg/Ml Inj) 1,000 mcg IM DAILY [facility] Stop: 09/16/18 10:01 Last Admin: 09/11/18 09:40 Dose: 1,000 mcg Iron Sucrose 200 mg/ Sodium (Chloride) 110 mls @ 110 mls/hr IVPB DAILY [facility] Stop: 09/14/18 10:01 Last Admin: 09/11/18 09:40 Dose: 110 mls/hr Pantoprazole Sodium (Protonix Ec Tab) 40 mg PO 0600 [facility] Last Admin: 09/11/18 06:01 Dose: 40 mg - Labs Labs: 09/11/18 05:45 09/11/18 05:45 PT 21.3 SECONDS (9.4-12.5) H 09/11/18 05:45 INR 1.88 09/11/18 05:45 APTT 37.6 Seconds (26.9-38.3) 09/11/18 05:45 Attending/Attestation - Attestation I have personally seen and examined this patient.: Yes I have fully participated in the care of the patient.: Yes I have reviewed all pertinent clinical information, including history, physical exam and plan: Yes Notes (Text): 09/11/18 16:01 48 year old female with past medical history of DVT/PE on coumadin, hypertension, dyslipidemia and anemia who presented with recurrent DVT/PE with therapeutic INR while on coumadin. She is s/p IVC filter. She was started on eliquis. Hematology is following. Today patient still reports dyspnea on exertion. She was unable to tolerate 6 minute walk test due to shortness of breath and tachycardia. PT evaluation is requested. She is on iv iron and vitamin B12 for anemia. Isaias Caro MD Hospitalist.
--- NOTE | 2018-09-11 18:04 | CP.PCM.DIS ---
<Gary Jackson - Last Filed: 09/12/18 15:46> Provider - Provider Date of Admission: 09/06/18 11:02 Attending physician: Isaias Caro MD Primary care physician: Kristin Stevenson MD Consults: 09/06/18 13:26 Hematology Oncology Consult Routine Comment: Consulting Provider: Wilver Rivera Consulting Physician: Wilver Rivera Reason for Consult: Recurrent PE, compliant on Warfarin, Hypercoag work up Pulmonology Consult Routine Comment: Consulting Provider: Eugenio Felix Consulting Physician: Eugenio Felix Reason for Consult: Recurrent PE 09/06/18 19:11 Inpatient PLASTER APPLICATOR Core Measures Referral Routine Comment: Physician Instructions: Reason For Exam: EVALUATION Transition In Care/Readmission Reduction Routine Comment: Physician Instructions: Reason For Exam: EVALUATION 09/07/18 09:11 Physician Consult Routine Comment: Consulting Provider: Tremayne Hernández Consulting Physician: Tremayne Hernández Reason for Consult: IVC filter placement 09/07/18 09:49 Consult [Physician Consult] Routine Comment: Consulting Provider: Tremayne Hernández Consulting Physician: Tremayne Hernández Reason for Consult: possible insertion of IVC filter 09/08/18 08:03 Consult [Physician Consult] Routine Comment: Consulting Provider: Mandeep Smith Consulting Physician: Mandeep Smith Reason for Consult: questionable thrombus 09/09/18 15:53 Data Support Specialist [Case Management Referral] Routine Comment: Physician Instructions: Reason For Exam: needs insurance for medication Reason for Referral: Data Support Specialist Kayla 09/10/18 13:18 Respiratory Therapy Referral Routine Comment: Physician Instructions: Reason For Exam: 6 minute walk test prior to discharge Time Spent in preparation of Discharge (in minutes): 60 Diagnosis - Discharge Diagnosis (1) Pulmonary embolism Status: Acute Priority: High (2) Anemia Status: Acute Hospital Course - Lab Results Lab Results: Micro Results 09/06/18 18:30 Naris MRSA Culture (Admit) - Final MRSA NOT DETECTED Most Recent Lab Values WBC 9.2 10^3/uL (4.5-11.0) 09/11/18 05:45 RBC 3.35 10^6/uL (3.5-6.1) L 09/11/18 05:45 Hgb 9.2 g/dL (12.0-16.0) L 09/11/18 05:45 Hct 29.6 % (36.0-48.0) L 09/11/18 05:45 MCV 88.4 fl (80.0-105.0) 09/11/18 05:45 MCH 27.5 pg (25.0-35.0) 09/11/18 05:45 MCHC 31.1 g/dl (31.0-37.0) 09/11/18 05:45 RDW 15.3 % (11.5-14.5) H 09/11/18 05:45 Plt Count 289 10^3/uL (120.0-450.0) 09/11/18 05:45 MPV 9.3 fl (7.0-11.0) 09/11/18 05:45 Neut % (Auto) 60.2 % (50.0-68.0) 09/11/18 05:45 Lymph % (Auto) 26.2 % (22.0-35.0) 09/11/18 05:45 Cedar % (Auto) 9.1 % (1.0-6.0) H 09/11/18 05:45 Eos % (Auto) 4.0 % (1.5-5.0) 09/11/18 05:45 Baso % (Auto) 0.5 % (0.0-3.0) 09/11/18 05:45 Lymph # (Auto) 2.4 (1.2-3.4) 09/11/18 05:45 Cedar # (Auto) 0.8 (0.1-0.6) H 09/11/18 05:45 Eos # (Auto) 0.4 (0.0-0.7) 09/11/18 05:45 Baso # (Auto) 0.05 K/mm3 (0.0-2.0) 09/11/18 05:45 Absolute Neuts (auto) 5.54 (1.4-6.5) 09/11/18 05:45 Retic Count 1.71 % (0.5-1.5) H 09/07/18 03:55 PT 21.3 SECONDS (9.4-12.5) H 09/11/18 05:45 INR 1.88 09/11/18 05:45 APTT 37.6 Seconds (26.9-38.3) 09/11/18 05:45 Factor V see note 09/07/18 11:15 Sodium 138 mmol/L (132-148) 09/11/18 05:45 Potassium 4.1 mmol/L (3.6-5.0) 09/11/18 05:45 Chloride 105 mmol/L (98-107) 09/11/18 05:45 Carbon Dioxide 26 mmol/L (21-33) 09/11/18 05:45 Anion Gap 12 (10-20) 09/11/18 05:45 BUN 11 mg/dL (7-21) 09/11/18 05:45 Creatinine 0.8 mg/dl (0.7-1.2) 09/11/18 05:45 Est GFR ( Amer) > 60 09/11/18 05:45 Est GFR (Non-Af Amer) > 60 09/11/18 05:45 Random Glucose 112 mg/dL (70-110) H 09/11/18 05:45 Calcium 9.4 mg/dL (8.4-10.5) 09/11/18 05:45 Phosphorus 3.3 mg/dL (2.5-4.5) 09/06/18 12:14 Magnesium 1.9 mg/dL (1.7-2.2) 09/06/18 12:14 Iron 19 ug/dL (45-180) L 09/07/18 12:20 TIBC 356 ug/dL (265-497) 09/07/18 12:20 % Saturation 5 % (20-55) L 09/07/18 12:20 Ferritin 12.8 ng/mL 09/07/18 03:55 Total Bilirubin 0.4 mg/dL (0.2-1.3) 09/11/18 05:45 AST 48 U/L (14-36) H D 09/11/18 05:45 ALT 25 U/L (7-56) 09/11/18 05:45 Alkaline Phosphatase 90 U/L (38-126) 09/11/18 05:45 Troponin I 0.04 ng/mL D 09/06/18 08:04 NT-Pro-B Natriuret Pep 1130 pg/mL (0-450) H 09/07/18 11:15 Total Protein 7.3 g/dL (5.8-8.3) 09/11/18 05:45 Albumin 4.0 g/dL (3.0-4.8) 09/11/18 05:45 Globulin 3.3 gm/dL 09/11/18 05:45 Albumin/Globulin Ratio 1.2 (1.1-1.8) 09/11/18 05:45 Vitamin B12 229 pg/mL (239-931) L 09/07/18 03:55 Folate 15.3 ng/mL 09/07/18 03:55 [id number]-[id number] Ab <9 DILAN (<=20) 09/07/18 05:50 Beta-2 GPI IgG Ab <9 SGU (<=20) 09/07/18 05:50 Beta-2 GPI IgM Ab <9 SMU (<=20) 09/07/18 05:50 Anti-Phospholipid Intrp see note 09/07/18 05:50 Anti-Cardiolipin IgG Ab <14 GPL (<=14) 09/07/18 05:50 Anti-Cardiolipin IgA Ab <11 APL (<=11) 09/07/18 05:50 Anti-Cardiolipin IgM Ab <12 MPL (<=12) 09/07/18 05:50 Prothrombin Mut Interp see note 09/07/18 11:15 Prothrombin Gene Mutate see note 09/07/18 11:15 Prothromb Gene Review see note 09/07/18 11:15 Blood Type A POSITIVE 09/07/18 06:10 Blood Type Confirm A POSITIVE 09/07/18 11:15 Antibody Screen Negative 09/07/18 06:10 BBK History Checked No verified bt 09/07/18 06:10 - Hospital Course Hospital Course: Gary Jackson, PGY-1, Internal Medicine Discharge Summary for Dr. Caro 48 year old female with past medical history of PE (2017, 2018) on warfarin, DVTs, HTN, HLD, anemia, presented with recurrent DVT and PE with therapeutic INR. Patient started that she needed more time to catch her breath with ambulation prior to arrival at the hospital. Patient reported to be compliant with warfarin 3 mg daily. CTA on 07/29/18 on prior admission showed bilateral PE in lower lobe pulmonary arteries and left upper lobe. CTA done on 09/06/18 showed bilateral PE with new clot in the right upper lobe pulmonary artery. Bilateral lower extremity ultrasound showed bilateral lower extremity DVT. Echocardiogram on 09/07 showed LVEF: 49.9%, grade 1 abnormal relaxation, right ventricle is moderately dilated and severely hypokinetic, moderate tricuspid regurgitation, and moderate pulmonary hypertension. Abdomen and pelvis CT with PO and IV contrast showed no evidence of malignancy. Hypercoagulable workup was done to rule out genetic factor of recurrent DVT and PE including Factor V Leidin, APA panel, prothrombin gene analysis which were all negative. Upon admission, patient was started on therapeutic heparin drip. Due to recurrent unprovoked DVT and PE, IR, Dr. Tremayne Hernández, placed an IVC filter to prevent future pulmonary embolisms on 09/07. Once patient was therapeutic on heparin drip, eliquis 10 mg BID was started 09/08 for a total of 7 days as a loading dose before she will be deescalated to 5 mg BID. Patient was unable to tolerate full 6 minute walk tests on 09/10 and 09/11 but improvement was seen daily. PT was consulted for recommendations upon discharge. Patient was found to have normocytic anemia on this admission. She was found to have decreased iron and vitamin B12 likely leading to a mixed contribution towards her anemia. She was given iron sucrose and cyanocobalamin to replete iron and vitamin B12 level. Physical therapy recommended for patient to be discharged to home with physical therapy for one week. Patient was stable and ready for discharge. She was told to follow up with PCP within 1-2 weeks. She was told to take new medication eliquis and other medications as prescribed. In addition, she was told to return to the emergency department if she had any recurring or new concerning symptoms. Physical therapy recommended for patient to be discharged to home with physical therapy for one week. - Date & Time of H&P Date of H&P: 09/06/18 Time of H&P: 12:18 Discharge Exam - Head Exam Head Exam: ATRAUMATIC, NORMAL INSPECTION, NORMOCEPHALIC - Eye Exam Eye Exam: EOMI, PERRL - Respiratory Exam Respiratory Exam: Clear to PA & Lateral, UNREMARKABLE - Cardiovascular Exam Cardiovascular Exam: REGULAR RHYTHM, RRR - GI/Abdominal Exam GI & Abdominal Exam: Normal Bowel Sounds, Soft. absent: Tenderness - Extremities Exam Extremities exam: full ROM - Neurological Exam Neurological exam: Alert, CN II-XII Intact, Oriented x3 - Skin Skin Exam: Dry, Intact, Normal Color Discharge Plan - Discharge Medications Prescriptions: RX: Apixaban [Eliquis] 10 mg PO BID 30 Days #30 tab RX: Cyanocobalamin [Vitamin B12 1000 mcg/ml Inj] 1,000 mcg IM DAILY 30 Days #30 vial RX: Ferrous Sulfate 325 mg PO DAILY 30 Days #30 tablet - Follow Up Plan Condition: GUARDED Disposition: HOME/ ROUTINE Instructions: Pulmonary Embolism (Blood Clot in the Lungs), Pulmonary Embolism (DC), Pulmonary Embolism (GEN) Additional Instructions: Please follow up with Dr. Stevenson in 1-2 weeks. Please take medications as prescribed including eliquis for preventing further pulmonary embolism and deep vein thrombosis. Please take paper work to Dr. Stevenson to fill out paper work for program for continuation of eliquis prescription. You will also need outpatient physical therapy 3-5 times for one week. Please return to the emergency department if you have any new concerning symptoms or worsening symptoms. Referrals: Kristin Stevenson MD [Primary Care Provider] - <Isaias Caro - Last Filed: 09/12/18 16:27> Provider - Provider Date of Admission: 09/06/18 11:02 Attending physician: Isaias Caro MD Primary care physician: Kristin Stevenson MD Consults: 09/06/18 13:26 Hematology Oncology Consult Routine Comment: Consulting Provider: Wilver Rivera Consulting Physician: Wilver Rivera Reason for Consult: Recurrent PE, compliant on Warfarin, Hypercoag work up Pulmonology Consult Routine Comment: Consulting Provider: Eugenio Felix Consulting Physician: Eugenio Felix Reason for Consult: Recurrent PE 09/06/18 19:11 Inpatient PLASTER APPLICATOR Core Measures Referral Routine Comment: Physician Instructions: Reason For Exam: EVALUATION Transition In Care/Readmission Reduction Routine Comment: Physician Instructions: Reason For Exam: EVALUATION 09/07/18 09:11 Physician Consult Routine Comment: Consulting Provider: Tremayne Hernández Consulting Physician: Tremayne Hernández Reason for Consult: IVC filter placement 09/07/18 09:49 Consult [Physician Consult] Routine Comment: Consulting Provider: Tremayne Hernández Consulting Physician: Tremayne Hernández Reason for Consult: possible insertion of IVC filter 09/08/18 08:03 Consult [Physician Consult] Routine Comment: Consulting Provider: Mandeep Smith Consulting Physician: Mandeep Smith Reason for Consult: questionable thrombus 09/09/18 15:53 Data Support Specialist [Case Management Referral] Routine Comment: Physician Instructions: Reason For Exam: needs insurance for medication Reason for Referral: Data Support Specialist Kayla 09/10/18 13:18 Respiratory Therapy Referral Routine Comment: Physician Instructions: Reason For Exam: 6 minute walk test prior to discharge Hospital Course - Lab Results Lab Results: Micro Results 09/06/18 18:30 Naris MRSA Culture (Admit) - Final MRSA NOT DETECTED Most Recent Lab Values WBC 9.7 10^3/uL (4.5-11.0) 09/12/18 06:30 RBC 3.26 10^6/uL (3.5-6.1) L 09/12/18 06:30 Hgb 9.1 g/dL (12.0-16.0) L 09/12/18 06:30 Hct 29.2 % (36.0-48.0) L 09/12/18 06:30 MCV 89.6 fl (80.0-105.0) 09/12/18 06:30 MCH 27.9 pg (25.0-35.0) 09/12/18 06:30 MCHC 31.2 g/dl (31.0-37.0) 09/12/18 06:30 RDW 15.4 % (11.5-14.5) H 09/12/18 06:30 Plt Count 317 10^3/uL (120.0-450.0) 09/12/18 06:30 MPV 9.7 fl (7.0-11.0) 09/12/18 06:30 Neut % (Auto) 58.7 % (50.0-68.0) 09/12/18 06:30 Lymph % (Auto) 29.6 % (22.0-35.0) 09/12/18 06:30 Cedar % (Auto) 7.4 % (1.0-6.0) H 09/12/18 06:30 Eos % (Auto) 3.8 % (1.5-5.0) 09/12/18 06:30 Baso % (Auto) 0.5 % (0.0-3.0) 09/12/18 06:30 Lymph # (Auto) 2.9 (1.2-3.4) 09/12/18 06:30 Cedar # (Auto) 0.7 (0.1-0.6) H 09/12/18 06:30 Eos # (Auto) 0.4 (0.0-0.7) 09/12/18 06:30 Baso # (Auto) 0.05 K/mm3 (0.0-2.0) 09/12/18 06:30 Absolute Neuts (auto) 5.71 (1.4-6.5) 09/12/18 06:30 Retic Count 1.71 % (0.5-1.5) H 09/07/18 03:55 PT 20.0 SECONDS (9.4-12.5) H 09/12/18 06:30 INR 1.77 09/12/18 06:30 APTT 35.0 Seconds (26.9-38.3) 09/12/18 06:30 Factor V see note 09/07/18 11:15 Sodium 138 mmol/L (132-148) 09/12/18 06:30 Potassium 4.0 mmol/L (3.6-5.0) 09/12/18 06:30 Chloride 106 mmol/L (98-107) 09/12/18 06:30 Carbon Dioxide 26 mmol/L (21-33) 09/12/18 06:30 Anion Gap 10 (10-20) 09/12/18 06:30 BUN 10 mg/dL (7-21) 09/12/18 06:30 Creatinine 0.8 mg/dl (0.7-1.2) 09/12/18 06:30 Est GFR ( Amer) > 60 09/12/18 06:30 Est GFR (Non-Af Amer) > 60 09/12/18 06:30 Random Glucose 104 mg/dL (70-110) 09/12/18 06:30 Calcium 9.1 mg/dL (8.4-10.5) 09/12/18 06:30 Phosphorus 3.3 mg/dL (2.5-4.5) 09/06/18 12:14 Magnesium 1.9 mg/dL (1.7-2.2) 09/06/18 12:14 Iron 19 ug/dL (45-180) L 09/07/18 12:20 TIBC 356 ug/dL (265-497) 09/07/18 12:20 % Saturation 5 % (20-55) L 09/07/18 12:20 Ferritin 12.8 ng/mL 09/07/18 03:55 Total Bilirubin 0.3 mg/dL (0.2-1.3) 09/12/18 06:30 AST 40 U/L (14-36) H 09/12/18 06:30 ALT 27 U/L (7-56) 09/12/18 06:30 Alkaline Phosphatase 84 U/L (38-126) 09/12/18 06:30 Troponin I 0.04 ng/mL D 09/06/18 08:04 NT-Pro-B Natriuret Pep 1130 pg/mL (0-450) H 09/07/18 11:15 Total Protein 6.7 g/dL (5.8-8.3) 09/12/18 06:30 Albumin 3.5 g/dL (3.0-4.8) 09/12/18 06:30 Globulin 3.2 gm/dL 09/12/18 06:30 Albumin/Globulin Ratio 1.1 (1.1-1.8) 09/12/18 06:30 Vitamin B12 229 pg/mL (239-931) L 09/07/18 03:55 Folate 15.3 ng/mL 09/07/18 03:55 [id number] Ab <9 DILAN (<=20) 09/07/18 05:50 Beta-2 GPI IgG Ab <9 SGU (<=20) 09/07/18 05:50 Beta-2 GPI IgM Ab <9 SMU (<=20) 09/07/18 05:50 Phosphatidylserine IgG <10 U/mL (<10) 09/07/18 05:50 Phosphatidylserine IgA <20 U/mL (<20) 09/07/18 05:50 Phosphatidylserine IgM <25 U/mL (<25) 09/07/18 05:50 Anti-Phospholipid Intrp see note 09/07/18 05:50 Anti-Cardiolipin IgG Ab <14 GPL (<=14) 09/07/18 05:50 Anti-Cardiolipin IgA Ab <11 APL (<=11) 09/07/18 05:50 Anti-Cardiolipin IgM Ab <12 MPL (<=12) 09/07/18 05:50 Prothrombin Mut Interp see note 09/07/18 11:15 Prothrombin Gene Mutate see note 09/07/18 11:15 Prothromb Gene Review see note 09/07/18 11:15 Blood Type A POSITIVE 09/07/18 06:10 Blood Type Confirm A POSITIVE 09/07/18 11:15 Antibody Screen Negative 09/07/18 06:10 BBK History Checked No verified bt 09/07/18 06:10 Attending/Attestation - Attestation I have personally seen and examined this patient.: Yes I have fully participated in the care of the patient.: Yes I have reviewed all pertinent clinical information, including history, physical exam and plan: Yes Notes (Text): 09/12/18 16:18 48 year old female with past medical history of DVT/PE on coumadin, hypertension, dyslipidemia and anemia who presented with recurrent DVT/PE with therapeutic INR while on coumadin. She was seen by pulmonary, hematology and IR and started on eliquis. She also had s/p IVC filter. She was on iv iron and vitamin B12 for anemia. Today she reported her dyspnea on exertion improved. She was able to tolerate PT with 6 minute walk test. Patient is discharged home to follow up at [facility]. Continue with po iron and po B12 supplements. Continue with eliquis. Monitor cbc as outpatient. Isaias Caro MD Hospitalist.
[2018-09-12 03:00] LABS: PHOSPHATIDYLSERINE AB IGA <20 U/mL (<20); PHOSPHATIDYLSERINE AB IGG <10 U/mL (<10); PHOSPHATIDYLSERINE AB IGM <25 U/mL (<25)
[2018-09-12] MEDS: Pantoprazole 40 mg EC Tab PO SCH (05:45)
[2018-09-12 07:02] LABS: BASO # 0.05 K/mm3 (0.0-2.0); BASO % 0.5 % (0.0-3.0); EOS # 0.4 (0.0-0.7); EOS % 3.8 % (1.5-5.0); HEMOGLOBIN 9.1 g/dL (12.0-16.0); LYMPH # 2.9 (1.2-3.4); LYMPH % 29.6 % (22.0-35.0); MEAN CELL VOLUME 89.6 fl (80.0-105.0); MEAN CORPUSCULAR HEMOGLOBIN 27.9 pg (25.0-35.0); MEAN CORPUSCULAR HGB CONC 31.2 g/dl (31.0-37.0); MEAN PLATELET VOLUME 9.7 fl (7.0-11.0); MONO # 0.7 (0.1-0.6); MONO % 7.4 % (1.0-6.0); RBC 3.26 10^6/uL (3.5-6.1); RED CELL DISTRIBUTION WIDTH 15.4 % (11.5-14.5); WHITE BLOOD COUNT 9.7 10^3/uL (4.5-11.0)
[2018-09-12 07:07] LABS: INR 1.77
[2018-09-12 07:43] LABS: ALB/GLOB RATIO 1.1 (1.1-1.8); ALBUMIN 3.5 g/dL (3.0-4.8); ALT/SGPT 27 U/L (7-56); AST/SGOT 40 U/L (14-36); BLOOD UREA NITROGEN 10 mg/dL (7-21); CALCIUM 9.1 mg/dL (8.4-10.5); GFR NON-AFRICAN AMERICAN > 60
[2018-09-12 12:42] VITALS: BP 120/80; RESP 18; TEMP 97.5
[2018-09-12 16:12] VITALS: PULSE 68
== END 2018-09-12 18:49 | disposition home or self-care (01) | DRG 197 ==
LOC: ED 07:30 → ERH 11:02 → CCU 18:27 → 2RNO 09-08 19:30
PROVIDERS: ADMIT Internal Medicine; ATTEND Internal Medicine
PROC: 06H03DZ Insertion of Intraluminal Device into Inferior Vena Cava, Percutaneous Approach (ICD-10-PCS; principal; 2018-09-07)
DX: I82.433 Acute embolism and thrombosis of popliteal vein, bilateral (principal); I26.99 Other pulmonary embolism without acute cor pulmonale; I82.412 Acute embolism and thrombosis of left femoral vein; J96.01 Acute respiratory failure with hypoxia; I27.20 Pulmonary hypertension, unspecified; I07.1 Rheumatic tricuspid insufficiency; D51.3 Other dietary vitamin B12 deficiency anemia; D50.9 Iron deficiency anemia, unspecified; I10 Essential (primary) hypertension; D25.9 Leiomyoma of uterus, unspecified; E78.5 Hyperlipidemia, unspecified; R79.1 Abnormal coagulation profile; Z79.01 Long term (current) use of anticoagulants

== ENCOUNTER 2018-10-05 12:43 | Outpatient (CLI) | payer OTHER | END 2018-10-05 12:44 | disposition home or self-care (01) | LOC: LAB 12:43 ==

== ENCOUNTER 2018-10-05 14:07 | Emergency (ER) | payer OTHER ==
--- NOTE | 2018-10-05 14:42 | ED PDOC ---
Arrival/HPI - General Time Seen by Provider: 10/05/18 14:12 Historian: Patient - History of Present Illness Narrative History of Present Illness (Text): 10/05/18 14:36 48 year old female, whose past medical history includes multiple PEs (2017, 2018) on warfarin, DVTs, HTN, HLD and anemia presents to the emergency department complaining of right calf pain that woke her up yesterday morning. Patient reports she has multiple DVTs in the past in her right calf and reports the pain is simialr. Patient reports she has not missed any dose of her medication. Patient denies any fever, chills, chest pain, shortness of breath, nausea, vomiting, diarrhea, urinary symptoms, back pain, neck pain, headache, dizziness, or any other complaints. PMD: Dr. Stevenson, [facility] Time/Duration: Other (yesterday morning ) Symptom Onset: Sudden Symptom Course: Unchanged Activities at Onset: Sleeping Context: Home Past Medical History - Provider Review Nursing Documentation Reviewed: Yes - Infectious Disease Hx of Infectious Diseases: None - Cardiac Hx Hypertension: Yes - Pulmonary Hx Pulmonary Embolism: Yes Other/Comment: DVT - Neurological Hx Neurological Disorder: No - HEENT Hx HEENT Disorder: No - Renal Hx Renal Disorder: No - Endocrine/Metabolic Hx Endocrine Disorders: No - Hematological/Oncological Hx Blood Disorders: Yes Hx Anemia: Yes - Integumentary Hx Dermatological Disorder: No - Musculoskeletal/Rheumatological Hx Musculoskeletal Disorders: No Hx Falls: No - Gastrointestinal Hx Gastrointestinal Disorders: No - Genitourinary/Gynecological Hx Genitourinary Disorders: No - Psychiatric Hx Psychophysiologic Disorder: No Hx Substance Use: No - Surgical History Hx Cholecystectomy: Yes (2006) - Anesthesia Hx Anesthesia: No Family/Social History - Physician Review Nursing Documentation Reviewed: Yes Family/Social History: No Known Family HX Smoking Status: Never Smoked Hx Alcohol Use: No Hx Substance Use: No Allergies/Home Meds Allergies/Adverse Reactions: Allergies No Known Allergies Allergy (Verified 09/06/18 13:18) Review of Systems - Physician Review All systems were reviewed & negative as marked: Yes - Review of Systems Constitutional: Other (chills). absent: Fevers Respiratory: absent: SOB Cardiovascular: Calf Pain (right). absent: Chest Pain Gastrointestinal: absent: Diarrhea, Nausea, Vomiting Genitourinary Female: absent: Dysuria, Frequency, Hematuria Musculoskeletal: absent: Back Pain, Neck Pain Neurological: absent: Headache, Dizziness Physical Exam - Physical Exam Narrative Physical Exam (Text): Gen: VS reviewed, alert, well developed, well nourished, nontoxic, mild distress. ENT: normal pharynx. Eye: EOMI, PERRL. Neck: no JVD, supple, no adenopathy. CV: regular rate, regular rhythm, no rubs, no murmur, no gallops, S1, S2, pulses equal and strong. Pulm: no distress, clear to auscultation, no wheeze, no rhonchi, breath sounds equal, no rales. Abd: soft, nontender, no guarding, no rebound, no rigidity, normal bowel sounds. Ext: No focal calf tenderness. No swelling of leg. no edema. Skin: good color, no rash, no cyanosis. Psych: responds appropriately to questions, normal affect. Neuro: oriented x 3, CN2-12 intact grossly, motor intact, sensation intact. Vital Signs Reviewed: Yes Temperature: Afebrile Blood Pressure: Normal Pulse: Regular Respiratory Rate: Normal Medical Decision Making ED Course and Treatment: 10/05/18 14:36 Impression: 48 year old female presents complaining of right calf pain that woke her up yesterday morning. Patient reports the pain is similar to her regular DVT. Plan: -- POC Urine test -- Duplex LE US -- Reassess and disposition Prior Visits: Notes and results from previous visits were reviewed. Progress Notes: 10/05/18 15:52 pt seen for right calf pain, hx dvt, taking eliquis and has been compliant, no c ardiopulmonary symptoms. case discussed with dr. stevenson and will see the patient for follow up. - Scribe Statement The provider has reviewed the documentation as recorded by the Babita Mora Provider Scribe Attestation: All medical record entries made by the Babita were at my direction and personally dictated by me. I have reviewed the chart and agree that the record accurately reflects my personal performance of the history, physical exam, medical decision making, and the department course for this patient. I have also personally directedJasiel Disposition/Present on Arrival - Present on Arrival Any Indicators Present on Arrival: No History of DVT/PE: Yes History of Uncontrolled Diabetes: No Urinary Catheter: No History Surgical Site Infection Following: None - Disposition Have Diagnosis and Disposition been Completed?: Yes Diagnosis: Right calf pain Disposition Time: 15:54 Patient Plan: Discharge Condition: STABLE Discharge Instructions (ExitCare): Muscle and Bone Pain (DC) Additional Instructions: call your doctor today to make a close follow up appointment.
[2018-10-05 14:43] VITALS: RESP 18; TEMP 98.2
[2018-10-05 15:15] VITALS: BMI 23.8
--- NOTE | 2018-10-05 16:31 | US ---
PROCEDURE: Right lower extremity venous US HISTORY: Leg pain and swelling. Evaluate for DVT. PHYSICIAN(S): Tremayne Hernández M.D. TECHNIQUE: Duplex sonography and color-flow Doppler with graded compression were used to evaluate the deep venous system of the right lower extremity. FINDINGS: The visualized deep venous system of the right lower extremity is sonographically normal and compressible. Normal waveforms and augmentation are seen. There is no sonographic evidence for deep venous thrombosis in the visualized segments of the right lower extremity. IMPRESSION: 1. No sonographic evidence for deep venous thrombosis in the visualized segments of the right lower extremity.
[2018-10-05 17:10] VITALS: BP 121/73; PULSE 81; O2SAT 100
== END 2018-10-05 16:05 | disposition home or self-care (01) ==
LOC: ED 14:07
DX: M79.661 Pain in right lower leg (principal); E78.5 Hyperlipidemia, unspecified; I10 Essential (primary) hypertension; Z86.711 Personal history of pulmonary embolism; Z79.01 Long term (current) use of anticoagulants

== ENCOUNTER 2018-11-20 07:13 | Outpatient (CLI) | payer OTHER | END 2018-11-20 07:14 | disposition home or self-care (01) | LOC: PULMO 07:13 ==

== ENCOUNTER 2018-12-18 07:54 | Outpatient (CLI) | payer OTHER | END 2018-12-18 07:55 | disposition home or self-care (01) | LOC: LAB 07:54 ==

== ENCOUNTER 2018-12-19 07:06 | Outpatient (CLI) | payer OTHER | END 2018-12-22 10:13 | disposition home or self-care (01) | LOC: RAD 07:06 ==

== ENCOUNTER 2018-12-30 13:13 | Observation (INO) | payer OTHER ==
[2018-12-30 13:14] VITALS: BMI 23.8
[2018-12-30] MEDS ORDERED: Sodium Chloride 0.9% 1,000 ML IV STA (13:41)
--- NOTE | 2018-12-30 13:42 | ED PDOC ---
Arrival/HPI - General Chief Complaint: Female Genitourinary Time Seen by Provider: 12/30/18 13:14 Historian: Patient - History of Present Illness Narrative History of Present Illness (Text): 12/30/18 13:47 48 y/o female with PMH of PE (on Eliquis), anemia presents to the ED c/o vaginal bleeding x 16 days that worsened last night. Pt states she has been spotting since 12/14 but developed heavy bleeding with clots over the last 2 days. Associated lightheadedness and bilateral arm paresthesias. Last dose of eliquis last night. Denies fever, chills, abdominal pain, nausea, vomiting, diarrhea, constipation, headache, palpitations, chest pain, SOB, back pain, or any other associated symptoms. PMD: Dr. Stevenson Past Medical History - Provider Review Nursing Documentation Reviewed: Yes - Infectious Disease Hx of Infectious Diseases: None - Cardiac Hx Hypertension: Yes - Pulmonary Hx Pulmonary Embolism: Yes Other/Comment: DVT - Neurological Hx Neurological Disorder: No - HEENT Hx HEENT Disorder: No - Renal Hx Renal Disorder: No - Endocrine/Metabolic Hx Endocrine Disorders: No - Hematological/Oncological Hx Blood Disorders: Yes Hx Anemia: Yes - Integumentary Hx Dermatological Disorder: No - Musculoskeletal/Rheumatological Hx Musculoskeletal Disorders: No Hx Falls: No - Gastrointestinal Hx Gastrointestinal Disorders: No - Genitourinary/Gynecological Hx Genitourinary Disorders: No - Psychiatric Hx Psychophysiologic Disorder: No Hx Substance Use: No - Surgical History Hx Cholecystectomy: Yes (2006) - Anesthesia Hx Anesthesia: No Family/Social History - Physician Review Nursing Documentation Reviewed: Yes Family/Social History: No Known Family HX Smoking Status: Never Smoked Hx Alcohol Use: No Hx Substance Use: No Allergies/Home Meds Allergies/Adverse Reactions: Allergies No Known Allergies Allergy (Verified 12/30/18 13:35) Review of Systems - Review of Systems Constitutional: Fatigue. absent: Fevers Eyes: Normal. absent: Vision Changes ENT: Normal Respiratory: Normal. absent: SOB, Cough Cardiovascular: Normal. absent: Chest Pain, Palpitations, Syncope Gastrointestinal: Normal. absent: Abdominal Pain, Nausea, Vomiting Genitourinary Female: Vaginal Bleeding. absent: Dysuria, Frequency Musculoskeletal: Normal. absent: Back Pain, Neck Pain Skin: Normal. absent: Rash Neurological: Normal. absent: Headache, Dizziness Endocrine: Normal Hemo/Lymphatic: Normal Psychiatric: Anxiety Physical Exam Vital Signs Reviewed: Yes Vital Signs Temp Pulse Resp BP Pulse Ox 12/30/18 13:14 97.9 F 96 H 18 113/77 99 Temperature: Afebrile Blood Pressure: Normal Pulse: Regular Respiratory Rate: Normal Appearance: Positive for: Well-Appearing, Non-Toxic, Comfortable Pain Distress: None Mental Status: Positive for: Alert and Oriented X 3 - Systems Exam Head: Present: Atraumatic, Normocephalic Pupils: Present: PERRL Extroacular Muscles: Present: EOMI Conjunctiva: Present: Normal Mouth: Present: Moist Mucous Membranes Neck: Present: Normal Range of Motion Respiratory/Chest: Present: Clear to Auscultation, Good Air Exchange. No: Respi ratory Distress, Accessory Muscle Use Cardiovascular: Present: Regular Rate and Rhythm, Normal S1, S2 Abdomen: Present: Normal Bowel Sounds. No: Tenderness, Distention, Peritoneal Signs Back: Present: Normal Inspection. No: CVA Tenderness Upper Extremity: Present: Normal Inspection, Normal ROM. No: Cyanosis, Edema Lower Extremity: Present: Normal Inspection, Normal ROM. No: Edema Neurological: Present: GCS=15, Speech Normal, Motor Func Grossly Intact, Normal Sensory Function, Gait Normal Skin: Present: Warm, Dry, Normal Color. No: Rashes Psychiatric: Present: Alert, Oriented x 3, Normal Insight, Normal Concentration, Normal Affect, Normal Mood Medical Decision Making ED Course and Treatment: 12/30/18 13:39 Initial Plan: * Labs * UA, POC preg * IVF 14:40 Bloodwork reviewed, significant for anemia at hgb 9.4/hmt 28.2. Last hemoglobin in October 10.4. Otherwise unremarkable. Pt refusing pelvic exam at this time. 15:20 Ultrasound shows large uterine fibroid Spoke with hospitalist, Dr. Caro who accepted patient for inpatient observation with diagnosis of vaginal bleeding, fibroids, and symptomatic anemia. Pt with stable vitals, resting comfortably in stretcher at this time. Pt updated with change in disposition. Hospitalist requests gynecological consult. Pending urinalysis. 15:[address] Riley, gynecology power house control room operator who recommends no acute intervention. States pt can followup as an outpatient for evaluation of fibroids. - Lab Interpretations Lab Results: 12/30/18 14:20 12/30/18 14:20 Lab Results 12/30/18 14:20: Blood Type Pending, Antibody Screen Pending, BBK History Checked Patient has bt 12/30/18 14:20: Sodium 138, Potassium 3.9, Chloride 108 H, Carbon Dioxide 22, Anion Gap 12, BUN 11, Creatinine 0.7, Est GFR ( Amer) > 60, Est GFR (Non- Af Amer) > 60, Random Glucose 120 H, Calcium 8.6, Magnesium 1.7, Total Bilirubin 0.5, AST 31, ALT 30, Alkaline Phosphatase 67, Total Protein 6.1, Albumin 3.5, Globulin 2.6, Albumin/Globulin Ratio 1.3 12/30/18 14:20: PT 16.5 H, INR 1.49, APTT 25.6 L 12/30/18 14:20: WBC 9.7 D, RBC 3.01 L, Hgb 9.4 L D, Hct 28.2 L, MCV 93.7, MCH 31.2, MCHC 33.3, RDW 14.5, Plt Count 264, MPV 8.8, Neut % (Auto) 76.1 H, Lymph % (Auto) 17.4 L, [place] % (Auto) 4.8, Eos % (Auto) 1.4 L, Baso % (Auto) 0.3, Lymph # (Auto) 1.7, [place] # (Auto) 0.5, Eos # (Auto) 0.1, Baso # (Auto) 0.03, Absolute Neuts (auto) 7.40 H I have reviewed the lab results: Yes - RAD Interpretation Narrative RAD Interpretations (Text): 12/30/18 15:16 Transvaginal Ultrasound: FINDINGS: UTERUS: Measures 17.4 x 10.0 x 12.3 cm. Anteverted. Large fibroid measuring 10.5 x 11. 5 x 12.2 cm. ENDOMETRIUM: Measures 5 mm in diameter. Unremarkable. CERVIX: Dilated endocervical cavity with fluid and large blood clot RIGHT OVARY: Not visualized. LEFT OVARY: Not visualized. FREE FLUID: No significant free fluid noted. OTHER FINDINGS: None. IMPRESSION: Dilated endocervical cavity with fluid and large blood clot. Large uterine fibroid measuring up to 12.2 cm. Rotary Slicing Machine Operator: Radiologist Disposition/Present on Arrival - Present on Arrival Any Indicators Present on Arrival: No History of DVT/PE: Yes History of Uncontrolled Diabetes: No Urinary Catheter: No History Surgical Site Infection Following: None - Disposition Have Diagnosis and Disposition been Completed?: Yes Diagnosis: Symptomatic anemia, Fibroid Disposition: HOSPITALIZED Disposition Time: 15:20 Patient Problems: Current Active Problems Problem Status Onset Anemia Chronic Condition: STABLE
[2018-12-30 14:27] LABS: BASO # 0.03 K/mm3 (0.0-2.0); BASO % 0.3 % (0.0-3.0); EOS # 0.1 (0.0-0.7); EOS % 1.4 % (1.5-5.0); HEMOGLOBIN 9.4 g/dL (12.0-16.0); LYMPH # 1.7 (1.2-3.4); LYMPH % 17.4 % (22.0-35.0); MEAN CELL VOLUME 93.7 fl (80.0-105.0); MEAN CORPUSCULAR HEMOGLOBIN 31.2 pg (25.0-35.0); MEAN CORPUSCULAR HGB CONC 33.3 g/dl (31.0-37.0); MEAN PLATELET VOLUME 8.8 fl (7.0-11.0); MONO # 0.5 (0.1-0.6); MONO % 4.8 % (1.0-6.0); RBC 3.01 10^6/uL (3.5-6.1); RED CELL DISTRIBUTION WIDTH 14.5 % (11.5-14.5); WHITE BLOOD COUNT 9.7 10^3/uL (4.5-11.0)
[2018-12-30 14:44] LABS: ALB/GLOB RATIO 1.3 (1.1-1.8); ALBUMIN 3.5 g/dL (3.0-4.8); ALT/SGPT 30 U/L (7-56); AST/SGOT 31 U/L (14-36); BLOOD UREA NITROGEN 11 mg/dL (7-21); CALCIUM 8.6 mg/dL (8.4-10.5); GFR NON-AFRICAN AMERICAN > 60
[2018-12-30 14:46] LABS: INR 1.49; PARTIAL THROMBOPLASTIN TIME 25.6 Seconds (26.9-38.3); PROTHROMBIN TIME 16.5 SECONDS (9.4-12.5)
--- NOTE | 2018-12-30 15:06 | US ---
Date of service: 12/30/2018 HISTORY: heavy vaginal bleeding COMPARISON: None available. TECHNIQUE: Grayscale, color Doppler and spectral evaluation of the pelvis performed transvaginally. FINDINGS: UTERUS: Measures 17.4 x 10.0 x 12.3 cm. Anteverted. Large fibroid measuring 10.5 x 11.5 x 12.2 cm. ENDOMETRIUM: Measures 5 mm in diameter. Unremarkable. CERVIX: Dilated endocervical cavity with fluid and large blood clot RIGHT OVARY: Not visualized. LEFT OVARY: Not visualized. FREE FLUID: No significant free fluid noted. OTHER FINDINGS: None. IMPRESSION: Dilated endocervical cavity with fluid and large blood clot. Large uterine fibroid measuring up to 12.2 cm. Nonvisualization of the ovaries.
[2018-12-30 16:17] LABS: URINE BILIRUBIN NEGATIVE (NEGATIVE); URINE BLOOD LARGE (NEGATIVE); URINE GLUCOSE (UA) 100 mg/dL (NEGATIVE); URINE LEUKOCYTE ESTERASE TRACE Leu/uL (NEGATIVE); URINE PROTEIN >=300 mg/dL (<30 mg/dL)
[2018-12-30 16:21] LABS: URINE APPEARANCE BLOODY (CLEAR); URINE COLOR DARK RED (YELLOW)
--- NOTE | 2018-12-30 16:28 | CP.PCM.HP ---
<HarshadAtiya - Last Filed: 12/30/18 16:39> History of Present Illness - History of Present Illness History of Present Illness: Atiya Patricia DO, PGY-2: HPI for Dr. Caro 48 year old female with past medical history of PE on Eliquis who presents with vaginal bleeding and feeling funny. She reports that her period started on December 12, 2018 and was fairly light; however, in the past 16 hours she has been passing blood clots. She denies any lightheadedness, near syncope, chest pain, or dyspnea with exertion (compared to her baseline), but does admit to feeling funny and complains of tingling in the bilateral UE intermittently. She denies any vaginal discharge or foul odor associated with the genital area. She denies nausea, vomiting, diarrhea, chest pain, syncope, weakness, vision changes, new sexual partners or recent intercourse. She reports that her periods normally last 8 days. She reports that her intermenstrual period is generally 28 days. A complete 12 point ROS is negative except as mentioned above. PMH: Microcytic anemia and CTEPH/PE with RV heart strain PSH: Cholecystecomy Allergies: Denies Social: denies smoking, illict drug; drinks occasionally; works in [employer] payable is [employer] PMD: Dr. Kristin Stevenson Dog Pound Attendant: Dr. Felix Present on Admission - Present on Admission Any Indicators Present on Admission: Yes History of DVT/PE: Yes Review of Systems - Review of Systems All systems: reviewed and no additional remarkable complaints except (as per HPI) Past Patient History - Infectious Disease Hx of Infectious Diseases: None - Past Social History Smoking Status: Never Smoked - CARDIAC Hx Hypertension: Yes - PULMONARY Hx Pulmonary Embolism: Yes Other/Comment: DVT - NEUROLOGICAL Hx Neurological Disorder: No - HEENT Hx HEENT Problems: No - RENAL Hx Chronic Kidney Disease: No - ENDOCRINE/METABOLIC Hx Endocrine Disorders: No - HEMATOLOGICAL/ONCOLOGICAL Hx Blood Disorders: Yes Hx Anemia: Yes - INTEGUMENTARY Hx Dermatological Problems: No - MUSCULOSKELETAL/RHEUMATOLOGICAL Hx Musculoskeletal Disorders: No Hx Falls: No - GASTROINTESTINAL Hx Gastrointestinal Disorders: No - GENITOURINARY/GYNECOLOGICAL Hx Genitourinary Disorders: No - PSYCHIATRIC Hx Psychophysiologic Disorder: No Hx Substance Use: No - SURGICAL HISTORY Hx Cholecystectomy: Yes (2006) - ANESTHESIA Hx Anesthesia: No Meds Allergies/Adverse Reactions: Allergies Allergy/AdvReac Type Severity Reaction Status Date / Time No Known Allergies Allergy Verified 12/30/18 13:35 Physical Exam - Constitutional Appears: Non-toxic, No Acute Distress - Head Exam Head Exam: ATRAUMATIC, NORMOCEPHALIC - Eye Exam Eye Exam: EOMI, Normal appearance Pupil Exam: NORMAL ACCOMODATION, PERRL - ENT Exam ENT Exam: Mucous Membranes Moist, Normal Oropharynx - Neck Exam Neck exam: Positive for: Normal Inspection - Respiratory Exam Respiratory Exam: Clear to Auscultation Bilateral, NORMAL BREATHING PATTERN. absent: Accessory Muscle Use - Cardiovascular Exam Cardiovascular Exam: RRR, +S1, +S2 - GI/Abdominal Exam GI & Abdominal Exam: Normal Bowel Sounds, Soft - Extremities Exam Extremities exam: Positive for: normal inspection. Negative for: calf tenderness - Neurological Exam Neurological exam: Alert, CN II-XII Intact, Oriented x3 - Psychiatric Exam Psychiatric exam: Normal Affect, Normal Mood - Skin Skin Exam: Dry, Intact, Normal Color, Warm Results - Vital Signs Recent Vital Signs: Last Vital Signs Temp 97.9 F 12/30/18 13:14 Pulse 89 12/30/18 16:15 Resp 17 12/30/18 16:15 BP 118/73 12/30/18 16:15 Pulse Ox 99 12/30/18 16:15 - Labs Result Diagrams: 12/30/18 14:20 12/30/18 14:20 Labs: Laboratory Results - last 24 hr 12/30/18 12/30/18 12/30/18 14:20 14:20 14:20 WBC 9.7 D RBC 3.01 L Hgb 9.4 L D Hct 28.2 L MCV 93.7 MCH 31.2 MCHC 33.3 RDW 14.5 Plt Count 264 MPV 8.8 Neut % (Auto) 76.1 H Lymph % (Auto) 17.4 L Bartholomew % (Auto) 4.8 Eos % (Auto) 1.4 L Baso % (Auto) 0.3 Lymph # (Auto) 1.7 Bartholomew # (Auto) 0.5 Eos # (Auto) 0.1 Baso # (Auto) 0.03 Absolute Neuts (auto) 7.40 H PT 16.5 H INR 1.49 APTT 25.6 L Sodium 138 Potassium 3.9 Chloride 108 H Carbon Dioxide 22 Anion Gap 12 BUN 11 Creatinine 0.7 Est GFR ( Amer) > 60 Est GFR (Non-Af Amer) > 60 Random Glucose 120 H Calcium 8.6 Magnesium 1.7 Total Bilirubin 0.5 AST 31 ALT 30 Alkaline Phosphatase 67 Total Protein 6.1 Albumin 3.5 Globulin 2.6 Albumin/Globulin Ratio 1.3 Blood Type Antibody Screen BBK History Checked 12/30/18 14:20 WBC RBC Hgb Hct MCV MCH MCHC RDW Plt Count MPV Neut % (Auto) Lymph % (Auto) Bartholomew % (Auto) Eos % (Auto) Baso % (Auto) Lymph # (Auto) Bartholomew # (Auto) Eos # (Auto) Baso # (Auto) Absolute Neuts (auto) PT INR APTT Sodium Potassium Chloride Carbon Dioxide Anion Gap BUN Creatinine Est GFR ( Amer) Est GFR (Non-Af Amer) Random Glucose Calcium Magnesium Total Bilirubin AST ALT Alkaline Phosphatase Total Protein Albumin Globulin Albumin/Globulin Ratio Blood Type A POSITIVE Antibody Screen Negative BBK History Checked Patient has bt Assessment & Plan - Assessment and Plan (Free Text) Assessment: 48 year old female with a past medical history of anemia and PE on Eliquis who presents with heavy vaginal bleeding and feeling funny. Transvaginal US shows a large 10 x 11 x 12 cm uterine fibroid and a dilated endocervix with a blood clot present. Her hgb is 9.4 with the baseline being 9.0 Plan is to hold Eliquis for the day and monitor H&H. CASTINGS TRIMMER was also consulted by the ED provider. We will follow up with their recommendations. We will give the patient folic acid in the meanwhile and monitor her further bleeding. We will resume her home B12 and home Iron sulfate. If hemoglobin goes below 8, then we will transfuse. She will need to follow up with CASTINGS TRIMMER as an outpatient. May seek expert consult for when can we re-start Eliquis if bleeding persist. Case was reviewed and discussed with attending physician, Dr. Caro <Isaias Caro - Last Filed: 12/30/18 17:38> Results - Vital Signs Recent Vital Signs: Last Vital Signs Temp 97.9 F 12/30/18 13:14 Pulse 89 12/30/18 16:15 Resp 18 12/30/18 16:28 BP 118/73 12/30/18 16:15 Pulse Ox 99 12/30/18 16:15 - Labs Result Diagrams: 12/30/18 14:20 12/30/18 14:20 Labs: Laboratory Results - last 24 hr 12/30/18 12/30/18 12/30/18 14:20 14:20 14:20 WBC 9.7 D RBC 3.01 L Hgb 9.4 L D Hct 28.2 L MCV 93.7 MCH 31.2 MCHC 33.3 RDW 14.5 Plt Count 264 MPV 8.8 Neut % (Auto) 76.1 H Lymph % (Auto) 17.4 L Bartholomew % (Auto) 4.8 Eos % (Auto) 1.4 L Baso % (Auto) 0.3 Lymph # (Auto) 1.7 Bartholomew # (Auto) 0.5 Eos # (Auto) 0.1 Baso # (Auto) 0.03 Absolute Neuts (auto) 7.40 H PT 16.5 H INR 1.49 APTT 25.6 L Sodium 138 Potassium 3.9 Chloride 108 H Carbon Dioxide 22 Anion Gap 12 BUN 11 Creatinine 0.7 Est GFR ( Amer) > 60 Est GFR (Non-Af Amer) > 60 Random Glucose 120 H Calcium 8.6 Magnesium 1.7 Total Bilirubin 0.5 AST 31 ALT 30 Alkaline Phosphatase 67 Total Protein 6.1 Albumin 3.5 Globulin 2.6 Albumin/Globulin Ratio 1.3 Urine Color Urine Appearance Urine pH Ur Specific [place] Urine Protein Urine Glucose (UA) Urine Ketones Urine Blood Urine Nitrate Urine Bilirubin Urine Urobilinogen Ur Leukocyte Esterase Urine RBC Urine WBC Blood Type Antibody Screen BBK History Checked 12/30/18 12/30/18 14:20 15:45 WBC RBC Hgb Hct MCV MCH MCHC RDW Plt Count MPV Neut % (Auto) Lymph % (Auto) Bartholomew % (Auto) Eos % (Auto) Baso % (Auto) Lymph # (Auto) Bartholomew # (Auto) Eos # (Auto) Baso # (Auto) Absolute Neuts (auto) PT INR APTT Sodium Potassium Chloride Carbon Dioxide Anion Gap BUN Creatinine Est GFR ( Amer) Est GFR (Non-Af Amer) Random Glucose Calcium Magnesium Total Bilirubin AST ALT Alkaline Phosphatase Total Protein Albumin Globulin Albumin/Globulin Ratio Urine Color Dark red Urine Appearance Bloody Urine pH 7.0 Ur Specific [place] >= 1.030 Urine Protein >=300 H Urine Glucose (UA) 100 H Urine Ketones Trace H Urine Blood Large H Urine Nitrate Positive H Urine Bilirubin Negative Urine Urobilinogen 1.0 H Ur Leukocyte Esterase Trace H Urine RBC Tntc H Urine WBC 10 - 15 H Blood Type A POSITIVE Antibody Screen Negative BBK History Checked Patient has bt Attending/Attestation - Attestation I have personally seen and examined this patient.: Yes I have fully participated in the care of the patient.: Yes I have reviewed all pertinent clinical information: Yes Notes (Text): 12/30/18 17:28 48 year old female with past medical history of PE on eliquis and anemia who presents with complaint of heavy vaginal bleeding. Transvaginal ultrasound showed large uterine fibroid and dilated endocervix with blood clot present. Hemoglobin is 9.4. Will admit for observation. Repeat H/H this evening and transfuse if trending down or if patient continues to have bleeding. Hold el iquis for now. Gynecology evaluation is requested. Isaias Caro MD Hospitalist.
[2018-12-30 16:36] LABS: URINE RBC TNTC /hpf (0-2)
[2018-12-30 20:10] LABS: HEMOGLOBIN 7.7 g/dL (12.0-16.0)
[2018-12-31 07:39] LABS: BASO # 0.05 K/mm3 (0.0-2.0); BASO % 0.5 % (0.0-3.0); EOS # 0.2 (0.0-0.7); EOS % 2.1 % (1.5-5.0); HEMOGLOBIN 8.8 g/dL (12.0-16.0); LYMPH % 21.2 % (22.0-35.0); MEAN CELL VOLUME 91.2 fl (80.0-105.0); MEAN CORPUSCULAR HEMOGLOBIN 30.9 pg (25.0-35.0); MEAN CORPUSCULAR HGB CONC 33.8 g/dl (31.0-37.0); MEAN PLATELET VOLUME 8.7 fl (7.0-11.0); MONO # 0.6 (0.1-0.6); MONO % 5.9 % (1.0-6.0); RBC 2.85 10^6/uL (3.5-6.1); RED CELL DISTRIBUTION WIDTH 15.7 % (11.5-14.5); WHITE BLOOD COUNT 9.5 10^3/uL (4.5-11.0)
[2018-12-31 08:02] LABS: BLOOD UREA NITROGEN 10 mg/dL (7-21); CALCIUM 7.9 mg/dL (8.4-10.5); GFR NON-AFRICAN AMERICAN > 60
--- NOTE | 2018-12-31 11:35 | CP.PCM.PN ---
<Sadi Quinones - Last Filed: 12/31/18 15:40> Subjective - Date & Time of Evaluation Date of Evaluation: 12/31/18 Time of Evaluation: 06:00 - Subjective Subjective: Sadi Quinones PGY2 Medicine Progress Note for Hospitalist Service Patient seen and examined bedside. No acute issues overnight. Patient states her vaginal bleeding is still present but has decreased, also complaining of mild headache. Patient denies chest pain, SOB, fever, chills, abdominal pain or any other complaints at this time. Objective - Vital Signs/Intake and Output Vital Signs (last 24 hours): Temp Pulse Resp BP Pulse Ox 97.7 F 83 20 110/72 99 12/31/18 05:53 12/31/18 06:00 12/31/18 05:53 12/31/18 05:53 12/31/18 05:53 Intake and Output: 12/31/18 12/31/18 06:59 18:59 Intake Total 1095 Balance 1095 - Medications Medications: Current Medications Acetaminophen (Tylenol 325mg Tab) 650 mg PO Q6H PRN PRN Reason: Pain, moderate (4-7) Last Admin: 12/31/18 10:06 Dose: 650 mg Cyanocobalamin (Vitamin B12 1000 Mcg/Ml Inj) 1,000 mcg IM DAILY [facility] Last Admin: 12/31/18 10:05 Dose: 1,000 mcg Ferrous Sulfate (Feosol) 324 mg PO DAILY [facility] Last Admin: 12/31/18 10:05 Dose: 324 mg - Labs Labs: 12/31/18 07:30 12/31/18 07:30 PT 16.5 SECONDS (9.4-12.5) H 12/30/18 14:20 INR 1.49 12/30/18 14:20 APTT 25.6 Seconds (26.9-38.3) L 12/30/18 14:20 - Constitutional Appears: Non-toxic, No Acute Distress - Head Exam Head Exam: ATRAUMATIC, NORMAL INSPECTION, NORMOCEPHALIC - Eye Exam Eye Exam: EOMI, Normal appearance - ENT Exam ENT Exam: Mucous Membranes Moist - Respiratory Exam Respiratory Exam: Clear to Ausculation Bilateral, NORMAL BREATHING PATTERN - Cardiovascular Exam Cardiovascular Exam: REGULAR RHYTHM, +S1, +S2 - GI/Abdominal Exam GI & Abdominal Exam: Soft. absent: Tenderness - Extremities Exam Extremities Exam: absent: Pedal Edema, Tenderness - Neurological Exam Neurological Exam: Alert, Awake, Oriented x3 - Skin Skin Exam: Normal Color Assessment and Plan - Assessment and Plan (Free Text) Assessment: 48 year old female with a past medical history of anemia and PE on Eliquis who presented with heavy vaginal bleeding. Transvaginal US showed a large 10 x 11 x 12 cm uterine fibroid and a dilated endocervix with a blood clot present. Plan: 1. Vaginal Bleeding -likely secondary to uterine fibroid -TVUS showed a large 10 x 11 x 12 cm uterine fibroid and a dilated endocervix with a blood clot present -CLIENT SERVICES ASSISTANT consulted, Dr. Riley, follow recs -monitor Hgb 2. Anemia -secondary from vaginal bleeding -currently holding eliquis -s/p 1 unit PRBC -repeat Hgb in AM was 8.8 -will transfuse additional unit PRBC -follow up Hgb in afternoon -B12 -iron sulfate 3. History of DVT -holding eliquis due to vaginal bleeding -will restart when adequate 4. Headache -tylenol PRN DVT Prophylaxis -Sequential Compression Device <Isaias Caro - Last Filed: 12/31/18 15:58> Objective - Vital Signs/Intake and Output Vital Signs (last 24 hours): Temp Pulse Resp BP Pulse Ox 98.6 F 85 20 113/71 99 12/31/18 14:29 12/31/18 14:29 12/31/18 14:29 12/31/18 14:29 12/31/18 05:53 Intake and Output: 12/31/18 12/31/18 06:59 18:59 Intake Total 1095 274 Balance 1095 274 - Medications Medications: Current Medications Acetaminophen (Tylenol 325mg Tab) 650 mg PO Q6H PRN PRN Reason: Pain, moderate (4-7) Last Admin: 12/31/18 10:06 Dose: 650 mg Cyanocobalamin (Vitamin B12 1000 Mcg/Ml Inj) 1,000 mcg IM DAILY [facility] Last Admin: 12/31/18 10:05 Dose: 1,000 mcg Ferrous Sulfate (Feosol) 324 mg PO DAILY [facility] Last Admin: 12/31/18 10:05 Dose: 324 mg - Labs Labs: 12/31/18 07:30 12/31/18 07:30 PT 16.5 SECONDS (9.4-12.5) H 12/30/18 14:20 INR 1.49 12/30/18 14:20 APTT 25.6 Seconds (26.9-38.3) L 12/30/18 14:20 Attending/Attestation - Attestation I have personally seen and examined this patient.: Yes I have fully participated in the care of the patient.: Yes I have reviewed all pertinent clinical information, including history, physical exam and plan: Yes Notes (Text): 12/31/18 15:57 48 year old female with past medical history of PE on eliquis and anemia who presented with complaint of heavy vaginal bleeding. Transvaginal ultrasound showed large uterine fibroid and dilated endocervix with blood clot present. Hemoglobin was 9.4 on admission and went down to 7.8 yesterday evening. She received one unit prbc transfusion with repeat hemoglobin 8.8 this morning. Sti ll reports vaginal bleeding but decreased in amount. Will transfuse one more unit today and repeat H/H. Continue to hold eliquis for now. Gynecology evaluation was requested. Isaias Caro MD Hospitalist.
--- NOTE | 2018-12-31 11:48 | CARD ---
APPROVED REPORT Date of service: 12/30/2018 EKG Measurement Heart [id number] ID [id number] <Conclusion> Normal sinus rhythm Nonspecific T wave abnormality Prolonged QT Abnormal ECG
[2018-12-31 17:04] LABS: BASO # 0.03 K/mm3 (0.0-2.0); BASO % 0.3 % (0.0-3.0); EOS # 0.3 (0.0-0.7); EOS % 2.7 % (1.5-5.0); HEMOGLOBIN 9.9 g/dL (12.0-16.0); LYMPH # 2.3 (1.2-3.4); LYMPH % 23.6 % (22.0-35.0); MEAN CELL VOLUME 90.4 fl (80.0-105.0); MEAN CORPUSCULAR HEMOGLOBIN 30.7 pg (25.0-35.0); MEAN CORPUSCULAR HGB CONC 33.9 g/dl (31.0-37.0); MEAN PLATELET VOLUME 8.8 fl (7.0-11.0); MONO # 0.8 (0.1-0.6); MONO % 8.5 % (1.0-6.0); RBC 3.23 10^6/uL (3.5-6.1); RED CELL DISTRIBUTION WIDTH 16.4 % (11.5-14.5); WHITE BLOOD COUNT 9.8 10^3/uL (4.5-11.0)
[2019-01-01] MEDS ORDERED: Pantoprazole 40 mg Susp UD PO STA (03:16)
[2019-01-01 06:37] VITALS: O2SAT 98
[2019-01-01 07:10] LABS: BASO # 0.04 K/mm3 (0.0-2.0); BASO % 0.3 % (0.0-3.0); EOS # 0.4 (0.0-0.7); HEMOGLOBIN 9.6 g/dL (12.0-16.0); LYMPH # 1.9 (1.2-3.4); LYMPH % 15.4 % (22.0-35.0); MEAN CELL VOLUME 89.6 fl (80.0-105.0); MEAN CORPUSCULAR HEMOGLOBIN 30.2 pg (25.0-35.0); MEAN CORPUSCULAR HGB CONC 33.7 g/dl (31.0-37.0); MEAN PLATELET VOLUME 9.2 fl (7.0-11.0); MONO # 1.1 (0.1-0.6); MONO % 8.6 % (1.0-6.0); RBC 3.18 10^6/uL (3.5-6.1); RED CELL DISTRIBUTION WIDTH 16.5 % (11.5-14.5); WHITE BLOOD COUNT 12.5 10^3/uL (4.5-11.0)
[2019-01-01 07:31] LABS: BLOOD UREA NITROGEN 10 mg/dL (7-21); CALCIUM 8.4 mg/dL (8.4-10.5); GFR NON-AFRICAN AMERICAN > 60
[2019-01-01] MEDS ORDERED: Potassium Chloride 20 mEq/15 ml LIQ UD PO STA (10:16)
--- NOTE | 2019-01-01 12:18 | CP.PCM.CON ---
<Steve Krishnamurthy - Last Filed: 01/01/19 15:19> History of Present Illness - History of Present Illness History of Present Illness: PGY-2 heme/onc consult note for Dr Rivera Mrs Sandra is a 48 year old female with past medical history of recurrent unprovoked PE's with coumadin failure who was switched to eliquis in 08/2018, hx of DVT, hx of IVC placement in 08/2018, HTN, HLD, chronic anemia, who presented with vaginal bleeding since 12/12/2018 which initially began as spotting then progressively worsened to heavy bleeding with passage of large blood clots. She reports that her periods normally last 8 days. She reports that her intermenstrual period is generally 28 days however this past incident was abnormal timing. She denied symptoms such as chest pain, lightheadedness, loss of consciousness, abd pain, bloody stool, bleeding elsewhere, weakness, vision changes. PMHx: Microcytic anemia and CTEPH/PE with RV heart strain; Hx of recurrent unprovoked PE's and hx of DVTs; HTN, HLD PSHx: Cholecystecomy, IVC placement 08/2018 Allergies: Denies SocialHx: denies smoking, illict drug; drinks occasionally; works in [employer] payable is [employer] FamHx: grandmother had leukemia (does not know specifically which leukemia) PMD: Dr. Kristin Stevenson Ant[employer] Clocks Repairer: Dr. Felix Review of Systems - Review of Systems All systems: reviewed and no additional remarkable complaints except (as stated in HPI) Past Patient History - Infectious Disease Hx of Infectious Diseases: None - Past Social History Smoking Status: Never Smoked - CARDIAC Hx Hypertension: Yes - PULMONARY Hx Pulmonary Embolism: Yes Other/Comment: DVT - NEUROLOGICAL Hx Neurological Disorder: No - HEENT Hx HEENT Problems: No - RENAL Hx Chronic Kidney Disease: No - ENDOCRINE/METABOLIC Hx Endocrine Disorders: No - HEMATOLOGICAL/ONCOLOGICAL Hx Blood Disorders: Yes Hx Anemia: Yes - INTEGUMENTARY Hx Dermatological Problems: No - MUSCULOSKELETAL/RHEUMATOLOGICAL Hx Musculoskeletal Disorders: No Hx Falls: No - GASTROINTESTINAL Hx Gastrointestinal Disorders: No - GENITOURINARY/GYNECOLOGICAL Hx Genitourinary Disorders: No - PSYCHIATRIC Hx Psychophysiologic Disorder: No Hx Substance Use: No - SURGICAL HISTORY Hx Cholecystectomy: Yes (2006) - ANESTHESIA Hx Anesthesia: No Meds Allergies/Adverse Reactions: Allergies Allergy/AdvReac Type Severity Reaction Status Date / Time No Known Allergies Allergy Verified 12/30/18 13:35 - Medications Medications: Current Medications Acetaminophen (Tylenol 325mg Tab) 650 mg PO Q6H PRN PRN Reason: Pain, moderate (4-7) Last Admin: 12/31/18 10:06 Dose: 650 mg Apixaban (Eliquis) 5 mg PO BID [facility]; Protocol Last Admin: 01/01/19 10:54 Dose: 5 mg Cyanocobalamin (Vitamin B12 1000 Mcg/Ml Inj) 1,000 mcg IM DAILY [facility] Last Admin: 01/01/19 10:13 Dose: 1,000 mcg Ferrous Sulfate (Feosol) 324 mg PO DAILY [facility] Last Admin: 01/01/19 10:14 Dose: 324 mg Pantoprazole Sodium (Protonix Ec Tab) 40 mg PO 0600 [facility] Physical Exam - Constitutional Appears: Well, Non-toxic, No Acute Distress - Head Exam Head Exam: ATRAUMATIC, NORMAL INSPECTION, NORMOCEPHALIC - Eye Exam Eye Exam: EOMI, Normal appearance, PERRL. absent: Scleral icterus - ENT Exam ENT Exam: Mucous Membranes Moist, Normal Oropharynx. absent: Mucous Membranes Dry - Neck Exam Neck exam: Positive for: Normal Inspection. Negative for: Lymphadenopathy, Tenderness - Respiratory Exam Respiratory Exam: Clear to Auscultation Bilateral, NORMAL BREATHING PATTERN. absent: Rales, Rhonchi, Wheezes - Cardiovascular Exam Cardiovascular Exam: Tachycardia, REGULAR RHYTHM, +S1, +S2. absent: JVD, Systolic Murmur - GI/Abdominal Exam GI & Abdominal Exam: Normal Bowel Sounds, Soft. absent: Distended, Firm, Tenderness - Extremities Exam Extremities exam: Positive for: full ROM, normal inspection. Negative for: calf tenderness - Neurological Exam Neurological exam: Alert, CN II-XII Intact, Oriented x3 - Psychiatric Exam Psychiatric exam: Anxious - Skin Skin Exam: Dry, Intact, Normal Color, Warm Results - Vital Signs Recent Vital Signs: Last Vital Signs Temp 97.8 F 01/01/19 12:00 Pulse 86 01/01/19 12:00 Resp 18 01/01/19 12:00 BP 125/81 01/01/19 12:00 Pulse Ox 98 01/01/19 06:00 - Labs Result Diagrams: 01/01/19 07:00 01/01/19 07:00 Labs: Laboratory Results - last 24 hr 12/30/18 12/31/18 01/01/19 14:20 16:55 07:00 WBC 9.8 12.5 H D RBC 3.23 L 3.18 L Hgb 9.9 L 9.6 L Hct 29.2 L 28.5 L MCV 90.4 89.6 MCH 30.7 30.2 MCHC 33.9 33.7 RDW 16.4 H 16.5 H Plt Count 182 188 MPV 8.8 9.2 Neut % (Auto) 64.9 72.7 H Lymph % (Auto) 23.6 15.4 L [place] % (Auto) 8.5 H 8.6 H Eos % (Auto) 2.7 3.0 Baso % (Auto) 0.3 0.3 Lymph # (Auto) 2.3 1.9 [place] # (Auto) 0.8 H 1.1 H Eos # (Auto) 0.3 0.4 Baso # (Auto) 0.03 0.04 Absolute Neuts (auto) 6.33 9.09 H Sodium Potassium Chloride Carbon Dioxide Anion Gap BUN Creatinine Est GFR ( Amer) Est GFR (Non-Af Amer) Random Glucose Calcium Crossmatch See Detail 01/01/19 07:00 WBC RBC Hgb Hct MCV MCH MCHC RDW Plt Count MPV Neut % (Auto) Lymph % (Auto) [place] % (Auto) Eos % (Auto) Baso % (Auto) Lymph # (Auto) [place] # (Auto) Eos # (Auto) Baso # (Auto) Absolute Neuts (auto) Sodium 136 Potassium 3.5 L Chloride 109 H Carbon Dioxide 22 Anion Gap 9 L BUN 10 Creatinine 0.6 L Est GFR ( Amer) > 60 Est GFR (Non-Af Amer) > 60 Random Glucose 109 Calcium 8.4 Crossmatch Assessment & Plan - Assessment and Plan (Free Text) Plan: Mrs Sandra is a 48 year old female with past medical history of recurrent unpro voked PE's with coumadin failure who was switched to eliquis in 08/2018, hx of DVT, hx of IVC placement in 08/2018, HTN, HLD, chronic anemia, who presented with vaginal bleeding with passage of large clots: Vaginal Bleeding - bleeding has currently stopped, eliquis was held for 2 days - vaginal bleeding due to large uterine fibroid, in her case the benefits of continued eliquis use outweigh the risks - transvaginal ultrasound 12/30/18 - dilated endocervical cavity with fluid and large blood clot, large uterine fibroid measuring up to 12.2 cm, nonvisualization of the ovaries Hx of Recurrent Unprovoked PE's/DVT - previously on coumadin and developed clot in 08/2018 - coumadin failure - switched to eliquis - will need to stay on eliquis for life - hypercoagulable workup was done in past to rule out genetic factor of recurrent DVT and PE including Factor V Leidin, APA panel, prothrombin gene analysis which were all negative - Abdomen and pelvis CT with PO and IV in 08/2018 contrast showed no evidence of malignancy Hx of IVC Filter Placement - due to recurrent unprovoked DVT and PE, IR, Dr. Tremayne Hernández, placed an IVC filter to prevent future pulmonary embolisms on 08/2018 Anemia - transfused 2 units pRBCs - 1 dose iron sucrose 200mg ivpb given today - continue home meds vit b12 1000mcg IM and ferrous sulfate 324mg po qd Seen and discussed with golf club repairer/oncologist Dr Wilver Rivera <Wilver Rivera - Last Filed: 01/01/19 17:30> Meds - Medications Medications: Current Medications Acetaminophen (Tylenol 325mg Tab) 650 mg PO Q6H PRN PRN Reason: Pain, moderate (4-7) Last Admin: 12/31/18 10:06 Dose: 650 mg Apixaban (Eliquis) 5 mg PO BID [facility]; Protocol Last Admin: 01/01/19 10:54 Dose: 5 mg Cyanocobalamin (Vitamin B12 1000 Mcg/Ml Inj) 1,000 mcg IM DAILY [facility] Last Admin: 01/01/19 10:13 Dose: 1,000 mcg Docusate Sodium (Colace) 100 mg PO TID [facility] Last Admin: 01/01/19 17:13 Dose: 100 mg Ferrous Sulfate (Feosol) 324 mg PO DAILY [facility] Last Admin: 01/01/19 10:14 Dose: 324 mg Pantoprazole Sodium (Protonix Ec Tab) 40 mg PO 0600 [facility] Results - Vital Signs Recent Vital Signs: Last Vital Signs Temp 97.8 F 01/01/19 12:00 Pulse 86 01/01/19 12:00 Resp 18 01/01/19 12:00 BP 125/81 01/01/19 12:00 Pulse Ox 98 01/01/19 06:00 - Labs Result Diagrams: 01/01/19 07:00 01/01/19 07:00 Labs: Laboratory Results - last 24 hr 01/01/19 01/01/19 07:00 07:00 WBC 12.5 H D RBC 3.18 L Hgb 9.6 L Hct 28.5 L MCV 89.6 MCH 30.2 MCHC 33.7 RDW 16.5 H Plt Count 188 MPV 9.2 Neut % (Auto) 72.7 H Lymph % (Auto) 15.4 L [place] % (Auto) 8.6 H Eos % (Auto) 3.0 Baso % (Auto) 0.3 Lymph # (Auto) 1.9 [place] # (Auto) 1.1 H Eos # (Auto) 0.4 Baso # (Auto) 0.04 Absolute Neuts (auto) 9.09 H Sodium 136 Potassium 3.5 L Chloride 109 H Carbon Dioxide 22 Anion Gap 9 L BUN 10 Creatinine 0.6 L Est GFR ( Amer) > 60 Est GFR (Non-Af Amer) > 60 Random Glucose 109 Calcium 8.4 Assessment & Plan - Assessment and Plan (Free Text) Plan: Pt seen and examined, agree with Dr. Krishnamurthy's consult. 48 year old female with a history of unprovoked recurrent venous clotting, coumadin failure, IVC filer placement 08/2018 on Eliquis, presenting with vaginal bleeding, and iron deficiency anemia. Agree with transfusion support and IV iron. Resume anticoagulation as vaginal bleeding appears resolved. Patient to see TRUST MANAGER as outpatient. Outpatient PO iron. Thank you for this interesting consult.
--- NOTE | 2019-01-01 15:45 | CP.PCM.DIS ---
<Otf Yanez - Last Filed: 01/01/19 15:46> Provider - Provider Date of Admission: 12/30/18 15:20 Attending physician: Isaias Caro MD Primary care physician: Kristin Stevenson MD Consults: 12/30/18 15:32 Physician Consult Stat Comment: Consulting Provider: Jerrell Pinto Consulting Physician: Jerrell Pinto Reason for Consult: Vaginal Bleeding on Eliquis, Fibroid Additional Comments: Please see the patient AUDREY, as she currently has Eliquis on hold so this is the window we have for any intervention. We consulted Dr. Riley a few days ago but he has not responded. Thank yoU! 01/01/19 08:48 Consult [Physician Consult] Routine Comment: Consulting Provider: Wilver Rivera Consulting Physician: Wilver Rivera Reason for Consult: PE on eliquis with founder and president bleeding Time Spent in preparation of Discharge (in minutes): 45 Hospital Course - Lab Results Lab Results: Micro Results 12/30/18 16:00 Urine,Clean Catch Urine Culture - Final Beta Hemolytic Strep Group B Most Recent Lab Values WBC 12.5 10^3/uL (4.5-11.0) H D 01/01/19 07:00 RBC 3.18 10^6/uL (3.5-6.1) L 01/01/19 07:00 Hgb 9.6 g/dL (12.0-16.0) L 01/01/19 07:00 Hct 28.5 % (36.0-48.0) L 01/01/19 07:00 MCV 89.6 fl (80.0-105.0) 01/01/19 07:00 MCH 30.2 pg (25.0-35.0) 01/01/19 07:00 MCHC 33.7 g/dl (31.0-37.0) 01/01/19 07:00 RDW 16.5 % (11.5-14.5) H 01/01/19 07:00 Plt Count 188 10^3/uL (120.0-450.0) 01/01/19 07:00 MPV 9.2 fl (7.0-11.0) 01/01/19 07:00 Neut % (Auto) 72.7 % (50.0-68.0) H 01/01/19 07:00 Lymph % (Auto) 15.4 % (22.0-35.0) L 01/01/19 07:00 [place] % (Auto) 8.6 % (1.0-6.0) H 01/01/19 07:00 Eos % (Auto) 3.0 % (1.5-5.0) 01/01/19 07:00 Baso % (Auto) 0.3 % (0.0-3.0) 01/01/19 07:00 Lymph # (Auto) 1.9 (1.2-3.4) 01/01/19 07:00 [place] # (Auto) 1.1 (0.1-0.6) H 01/01/19 07:00 Eos # (Auto) 0.4 (0.0-0.7) 01/01/19 07:00 Baso # (Auto) 0.04 K/mm3 (0.0-2.0) 01/01/19 07:00 Absolute Neuts (auto) 9.09 (1.4-6.5) H 01/01/19 07:00 PT 16.5 SECONDS (9.4-12.5) H 12/30/18 14:20 INR 1.49 12/30/18 14:20 APTT 25.6 Seconds (26.9-38.3) L 12/30/18 14:20 Sodium 136 mmol/L (132-148) 01/01/19 07:00 Potassium 3.5 mmol/L (3.6-5.0) L 01/01/19 07:00 Chloride 109 mmol/L (98-107) H 01/01/19 07:00 Carbon Dioxide 22 mmol/L (21-33) 01/01/19 07:00 Anion Gap 9 (10-20) L 01/01/19 07:00 BUN 10 mg/dL (7-21) 01/01/19 07:00 Creatinine 0.6 mg/dl (0.7-1.2) L 01/01/19 07:00 Est GFR ( Amer) > 60 01/01/19 07:00 Est GFR (Non-Af Amer) > 60 01/01/19 07:00 Random Glucose 109 mg/dL (70-110) 01/01/19 07:00 Calcium 8.4 mg/dL (8.4-10.5) 01/01/19 07:00 Magnesium 1.7 mg/dL (1.7-2.2) 12/30/18 14:20 Total Bilirubin 0.5 mg/dL (0.2-1.3) 12/30/18 14:20 AST 31 U/L (14-36) 12/30/18 14:20 ALT 30 U/L (7-56) 12/30/18 14:20 Alkaline Phosphatase 67 U/L (38-126) 12/30/18 14:20 Total Protein 6.1 g/dL (5.8-8.3) 12/30/18 14:20 Albumin 3.5 g/dL (3.0-4.8) 12/30/18 14:20 Globulin 2.6 gm/dL 12/30/18 14:20 Albumin/Globulin Ratio 1.3 (1.1-1.8) 12/30/18 14:20 Urine Color Dark red (YELLOW) 12/30/18 15:45 Urine Appearance Bloody (CLEAR) 12/30/18 15:45 Urine pH 7.0 (4.7-8.0) 12/30/18 15:45 Ur Specific [place] >= 1.030 (1.005-1.035) 12/30/18 15:45 Urine Protein >=300 mg/dL (<30 mg/dL) H 12/30/18 15:45 Urine Glucose (UA) 100 mg/dL (NEGATIVE) H 12/30/18 15:45 Urine Ketones Trace mg/dL (NEGATIVE) H 12/30/18 15:45 Urine Blood Large (NEGATIVE) H 12/30/18 15:45 Urine Nitrate Positive (NEGATIVE) H 12/30/18 15:45 Urine Bilirubin Negative (NEGATIVE) 12/30/18 15:45 Urine Urobilinogen 1.0 E.U./dL (<1 E.U./dL) H 12/30/18 15:45 Ur Leukocyte Esterase Trace [place]/uL (NEGATIVE) H 12/30/18 15:45 Urine RBC Tntc /hpf (0-2) H 12/30/18 15:45 Urine WBC 10 - 15 /hpf (0-6) H 12/30/18 15:45 Blood Type A POSITIVE 12/30/18 14:20 Antibody Screen Negative 12/30/18 14:20 Crossmatch See Detail 12/30/18 14:20 BBK History Checked Patient has bt 12/30/18 14:20 - Hospital Course Hospital Course: HPI on Admission: 8 year old female with past medical history of PE on Eliquis who presents with vaginal bleeding and feeling funny. She reports that her period started on December 12, 2018 and was fairly light; however, in the past 16 hours she has been passing blood clots. She denies any lightheadedness, near syncope, chest pain, or dyspnea with exertion (compared to her baseline), but does admit to feeling funny and complains of tingling in the bilateral UE intermittently. She denies any vaginal discharge or foul odor associated with the genital area. While here in the hospital the patient had a transvaginal ultrasound which showed a large 10 x 11 x 12 cm uterine fibroid and a dilated endocervix with a blood clot present gynecology was loan counselor did but they advise that we follow up with them outpatient. Patient was we started on her Eliquis after her hemoglobin was found to be stable. B 12 levels and iron levels were found to be low patient was restarted on her home B 12 and she was given a dose of iron sulfate. Discharge Exam - Head Exam Head Exam: ATRAUMATIC, NORMAL INSPECTION, NORMOCEPHALIC - Eye Exam Eye Exam: EOMI, Normal appearance, PERRL Pupil Exam: NORMAL ACCOMODATION, PERRL - Respiratory Exam Respiratory Exam: Clear to PA & Lateral, NORMAL BREATHING PATTERN, UNREMARKABLE - Cardiovascular Exam Cardiovascular Exam: REGULAR RHYTHM, +S1, +S2 - GI/Abdominal Exam GI & Abdominal Exam: Normal Bowel Sounds - Neurological Exam Neurological exam: Alert, CN II-XII Intact, Normal Gait, Oriented x3, Reflexes Normal - Psychiatric Exam Psychiatric exam: Normal Affect, Normal Mood - Skin Skin Exam: Dry, Intact, Normal Color, Warm Discharge Plan - Discharge Medications Prescriptions: Apixaban [Eliquis] 5 mg PO BID #60 tab Docusate [Colace] 100 mg PO TID #9 cap - Follow Up Plan Condition: STABLE Disposition: HOME/ ROUTINE Instructions: Anemia Caused by Low Iron, Uterine Fibroids (DC) Additional Instructions: Please follow up with Dr. Pinto, the medical records technician, tomorrow at 2:45PM - you have an appointment set up with him. Please bring your michelle care card otherwise you will have to pay out of pocket. Please restart your Eliquis as prescribed. If your symptoms persist or return please report back to the nearest ED immediately. If you have any further vaginal bleeding, please hold the Eliquis and return to the emergency room immediately Referrals: Jerrell Pinto MD [Staff Provider] - Kristin Stevenson MD [Primary Care Provider] - <Lamar Hernandez - Last Filed: 01/01/19 18:38> Provider - Provider Date of Admission: 12/30/18 15:20 Attending physician: Isaias Caro MD Primary care physician: Kristin Stevenson MD Consults: 12/30/18 15:32 Physician Consult Stat Comment: Consulting Provider: Jerrell Pinto Consulting Physician: Jerrell Pinto Reason for Consult: Vaginal Bleeding on Eliquis, Fibroid Additional Comments: Please see the patient AUDREY, as she currently has Eliquis on hold so this is the window we have for any intervention. We consulted Dr. Riley a few days ago but he has not responded. Thank yoU! 01/01/19 08:48 Consult [Physician Consult] Routine Comment: Consulting Provider: Wilver Rivera Consulting Physician: Wilver Rivera Reason for Consult: PE on eliquis with founder and president bleeding Hospital Course - Lab Results Lab Results: Micro Results 12/30/18 16:00 Urine,Clean Catch Urine Culture - Final Beta Hemolytic Strep Group B Most Recent Lab Values WBC 12.5 10^3/uL (4.5-11.0) H D 01/01/19 07:00 RBC 3.18 10^6/uL (3.5-6.1) L 01/01/19 07:00 Hgb 9.6 g/dL (12.0-16.0) L 01/01/19 07:00 Hct 28.5 % (36.0-48.0) L 01/01/19 07:00 MCV 89.6 fl (80.0-105.0) 01/01/19 07:00 MCH 30.2 pg (25.0-35.0) 01/01/19 07:00 MCHC 33.7 g/dl (31.0-37.0) 01/01/19 07:00 RDW 16.5 % (11.5-14.5) H 01/01/19 07:00 Plt Count 188 10^3/uL (120.0-450.0) 01/01/19 07:00 MPV 9.2 fl (7.0-11.0) 01/01/19 07:00 Neut % (Auto) 72.7 % (50.0-68.0) H 01/01/19 07:00 Lymph % (Auto) 15.4 % (22.0-35.0) L 01/01/19 07:00 [place] % (Auto) 8.6 % (1.0-6.0) H 01/01/19 07:00 Eos % (Auto) 3.0 % (1.5-5.0) 01/01/19 07:00 Baso % (Auto) 0.3 % (0.0-3.0) 01/01/19 07:00 Lymph # (Auto) 1.9 (1.2-3.4) 01/01/19 07:00 [place] # (Auto) 1.1 (0.1-0.6) H 01/01/19 07:00 Eos # (Auto) 0.4 (0.0-0.7) 01/01/19 07:00 Baso # (Auto) 0.04 K/mm3 (0.0-2.0) 01/01/19 07:00 Absolute Neuts (auto) 9.09 (1.4-6.5) H 01/01/19 07:00 PT 16.5 SECONDS (9.4-12.5) H 12/30/18 14:20 INR 1.49 12/30/18 14:20 APTT 25.6 Seconds (26.9-38.3) L 12/30/18 14:20 Sodium 136 mmol/L (132-148) 01/01/19 07:00 Potassium 3.5 mmol/L (3.6-5.0) L 01/01/19 07:00 Chloride 109 mmol/L (98-107) H 01/01/19 07:00 Carbon Dioxide 22 mmol/L (21-33) 01/01/19 07:00 Anion Gap 9 (10-20) L 01/01/19 07:00 BUN 10 mg/dL (7-21) 01/01/19 07:00 Creatinine 0.6 mg/dl (0.7-1.2) L 01/01/19 07:00 Est GFR ( Amer) > 60 01/01/19 07:00 Est GFR (Non-Af Amer) > 60 01/01/19 07:00 Random Glucose 109 mg/dL (70-110) 01/01/19 07:00 Calcium 8.4 mg/dL (8.4-10.5) 01/01/19 07:00 Magnesium 1.7 mg/dL (1.7-2.2) 12/30/18 14:20 Total Bilirubin 0.5 mg/dL (0.2-1.3) 12/30/18 14:20 AST 31 U/L (14-36) 12/30/18 14:20 ALT 30 U/L (7-56) 12/30/18 14:20 Alkaline Phosphatase 67 U/L (38-126) 12/30/18 14:20 Total Protein 6.1 g/dL (5.8-8.3) 12/30/18 14:20 Albumin 3.5 g/dL (3.0-4.8) 12/30/18 14:20 Globulin 2.6 gm/dL 12/30/18 14:20 Albumin/Globulin Ratio 1.3 (1.1-1.8) 12/30/18 14:20 Urine Color Dark red (YELLOW) 12/30/18 15:45 Urine Appearance Bloody (CLEAR) 12/30/18 15:45 Urine pH 7.0 (4.7-8.0) 12/30/18 15:45 Ur Specific [place] >= 1.030 (1.005-1.035) 12/30/18 15:45 Urine Protein >=300 mg/dL (<30 mg/dL) H 12/30/18 15:45 Urine Glucose (UA) 100 mg/dL (NEGATIVE) H 12/30/18 15:45 Urine Ketones Trace mg/dL (NEGATIVE) H 12/30/18 15:45 Urine Blood Large (NEGATIVE) H 12/30/18 15:45 Urine Nitrate Positive (NEGATIVE) H 12/30/18 15:45 Urine Bilirubin Negative (NEGATIVE) 12/30/18 15:45 Urine Urobilinogen 1.0 E.U./dL (<1 E.U./dL) H 12/30/18 15:45 Ur Leukocyte Esterase Trace [place]/uL (NEGATIVE) H 12/30/18 15:45 Urine RBC Tntc /hpf (0-2) H 12/30/18 15:45 Urine WBC 10 - 15 /hpf (0-6) H 12/30/18 15:45 Blood Type A POSITIVE 12/30/18 14:20 Antibody Screen Negative 12/30/18 14:20 Crossmatch See Detail 12/30/18 14:20 BBK History Checked Patient has bt 12/30/18 14:20 Attending/Attestation - Attestation I have personally seen and examined this patient.: Yes I have fully participated in the care of the patient.: Yes I have reviewed all pertinent clinical information, including history, physical exam and plan: Yes Notes (Text): 01/01/19 18:34 Attending note; Patient seen and examined with resident. Patient is alert and awake. Denies any chest pain, shortness of breath. Denies any abdominal pain, nausea, vomiting. Vaginal bleeding stopped. Started back on p.o. Eliquis. Patient is a 48 year old female with past medical history of PE on Eliquis who presents with vaginal bleeding. Status post 2 unit PRBC transfusion. Patient is hemodynamically stable. Currently no active vaginal bleeding. Started on Eliquis. Advised to follow-up with BIAS CUTTING MACHINE OPERATOR V[employer] Dr. Pinto tomorrow. Transvaginal ultrasound which showed a large 10 x 11 x 12 cm uterine fibroid and a dilated endocervix with a blood clot. Patient was also given IV iron transfusion. Continue p.o. iron at home. Upon discharge the patient will follow-up with [facility] [place]. Advised to follow-up with Dr. Tremayne Hernández for IVC filter removal. Follow-up with BIAS CUTTING MACHINE OPERATOR VERTICAL for uterine fibroids/menorrhagia treatment. Discharge home today. Diagnosis, follow-up plan discussed with patient in detail.
[2019-01-01 17:18] VITALS: BP 125/81; PULSE 86; RESP 18; TEMP 97.8
[2019-01-01] MEDS ORDERED: POLYETHYLENE GLYCOL 3350 17 GM/Dose PACKET PO SCH (18:00)
[2019-01-02] MEDS ORDERED: Pantoprazole 40 mg EC Tab PO SCH (06:00)
== END 2019-01-01 18:56 | disposition home or self-care (01) ==
LOC: ED 13:13 → ERH 15:20 → 3RNO 17:37 → 2RNO 19:11
PROVIDERS: ADMIT Internal Medicine; ATTEND Internal Medicine
DX: D62 Acute posthemorrhagic anemia (principal); D25.9 Leiomyoma of uterus, unspecified; E78.5 Hyperlipidemia, unspecified; I10 Essential (primary) hypertension; N92.0 Excessive and frequent menstruation with regular cycle; Z80.6 Family history of leukemia; Z79.01 Long term (current) use of anticoagulants; Z86.711 Personal history of pulmonary embolism; Z86.718 Personal history of other venous thrombosis and embolism; Z90.49 Acquired absence of other specified parts of digestive tract; R51 Headache
CPT/HCPCS: 36415; 36430; 76830; 80048; 80053; 81001; 81025; 83735; 85014; 85018; 85025; 85610; 85730; 86850; 86900; 86920; 87086; 93005; 96360; 99285; G0378; J1756; J3420; J7030; P9016